=== PATIENT | female | born 1980 | race Caucasian/White ===

== ENCOUNTER → 2016-10-20 | Outpatient (CLI) | payer OTHER ==
[~2016-10-20] MED LIST: /ACETCOD2T PO; BACL-67 PO; BACL10TA2 PO; CLIN300C PO; CLON-412 PO; DILA4TAB PO; FENT12PA TOP; GABA-279 PO; GABA-282 PO; GABA300C2 PO; GRAL600T PO; IBUP80TA PO; METH750T PO; MORP-38 PO; MORP15TA2 PO; NORT25CA2 PO; PAME25CA PO; PERC10TA17 PO; PERC7.5T PO; SOMA350T PO; TIZA4CAP PO; TRAM50TA2 PO; VOLT1GEL2 TOP; ZOFR20TA PO
--- NOTE | 2016-11-10 00:48 | ECWPNPC ---
PATIENT NAME: ADELFO MACIAS : 1980 GENDER: FEMALE VISIT DATE: 10/20/2016 DISCHARGE DATE: 10/20/16 1435 VISIT LOCKED DATE TIME: PHYSICIAN: ANGEL LUIS SMITH RESOURCE: ANGEL LUIS SMITH REASON FOR APPOINTMENT 1. BACK HISTORY OF PRESENT ILLNESS NEW PATIENT CONSULT: 36 Y/O FEMALE REFERRED BY DORA PARTIDA,[facility] FOR EVALUATION OF CHRONIC LOW BACK PAIN AND LEG PAIN.THIS BEGAN WITHOUT PRECIPITATING EVENT IN 2011.STATES PAIN IS AGGREVATED BY EVERYTHING AND RELIEVED SOMEWHAT AT REST.DESCRIBES PAIN CONSTANT ,SHARP AND STABBING.RATING PAIN VAS 9/10.SHE WAS A PATIENT HERE WITH LAST VISIT ON 11-26-14.SHE DIDNT RETURN FOR FOLLOW UP PLANNED.REPORTS THAT SHE HAD A REACTION TO INJECTABLE STEROIDS IN PAST THAT WAS SEVERE.STATES NO RECENT PHYSICAL THERAPY.DENIES RECENT FEVER,ILLNESS OR WEIGHT LOSS.DENIES BOWEL OR BLADDER INCONTINENCE. WHEN DID YOUR PAIN FIRST START? . BRIEFLY DESCRIBE HOW YOUR PAIN STARTED? . HOW DOES YOUR PAIN CHANGE WITH TIME? . DOES YOUR PAIN AWAKEN YOU FROM SLEEP? . HOW MANY HOURS OF SLEEP DO YOU NORMALLY GET? . ANY DIAGNOSTIC TESTING? . FACILITY WHERE TESTS WERE DONE? ____. PAIN TREATMENT TREATMENT YES CANCER HAVE YOU EVER HAD ANY TYPE OF CANCER?NO NO. PAIN SCREENING: PATIENT HAS A COMPLAINT OF ACUTE OR CHRONIC PAIN :YES FALL RISK SCREENING: SCREENING :NO FALLS IN THE PAST YEAR RICHARDSON INVENTORY: QUESTIONNAIRE ASSESSEDYES SCORE VALUE CALCULATED YES SCORE:6 CURRENT MEDICATIONS TAKING GABAPENTIN 600 MG TABLET 1 TABLET ORALLY THREE TIMES A DAY TAKING NORTRIPTYLINE HCL 25 MG CAPSULE 1 CAPSULE ORALLY ONCE A DAY TAKING TRAMADOL HCL 50 MG TABLET 1 TAB ORALLY EVERY 6 HOURS NEEDED/MMD#4 TAKING BACLOFEN 20 MG TABLET 1 TABLET WITH FOOD OR MILK ORALLY EVERY 8 HRS TAKING ZOFRAN 4 MG TABLET 2 TABLETS ORALLY ONCE A DAY MEDICATION LIST REVIEWED AND RECONCILED WITH THE PATIENT PAST MEDICAL HISTORY ANEMIA ANXIETY D/O 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 NERVE CONDUCTION DONE AT [facility] LOST FEELING IN RIGHT HAND ALLERGIES ENVIRONMENTAL: ALLERGY NSAIDS: INTERNAL BLEED: ALLERGY STEROID INJECTIONS: SEVERE PAIN: ALLERGY ASPIRIN: VOMIT: ALLERGY SURGICAL HISTORY LAPAROSCOPY COLONOSCOPY-WNL 2013 CHOLECYSTECTOMY 2012 TUBALIGATION APPENDECTOMY RIGHT SHOULDER REPAIR FAMILY HISTORY FATHER: ALIVE MOTHER: ALIVE 56 YRS, DIAGNOSED WITH DIABETES SOCIAL HISTORY GENERAL: TOBACCO USE ARE YOU A:CURRENT SMOKER PATIENT COUNSELED ON THE DANGERS OF TOBACCO USE AND URGED TO QUIT:10/20/2016 ARE YOU INTERESTED IN QUITTING?THINKING ABOUT QUITTING COUNSELED THE PATIENT ON SMOKING CESSATION, EDUCATION [id number]/02/2017 [facility] [id number] OTHER LANGUAGE LANGUAGES SPOKEN:MACEDONIAN EDUCATION LEVEL OF EDUCATION:HIGH SCHOOL LEARNING BARRIERS / SPECIAL NEEDS BARRIERS TO LEARNING?NO HEARING IMPAIRED?NO VISION IMPAIRED?NO COGNITIVELY IMPAIRED?NO READINESS TO LEARN?YES LEARNING PREFERENCES?YES :[facility] PFS, CLERGY, PUBLIC HEALTH REFERRALS CLERGY REFERRAL NEEDED?NO WAS THE PROVIDER NOTIFIED OF ANY PERTINENT INFO?NO PFS REFERRAL NEEDED?NO PUBLIC HEALTH REFERRAL NEEDED?NO PATIENT: ____. [facility]VANCE DIRECTIVES HEALTH CARE PROXY?YES NAME OF HCPFILL OUT FREE FORM NOTES SECTION ALEXA GILBERTO CONTACT # FOR HCP [phone] DO YOU HAVE A DNR?NO WOULD YOU LIKE MORE INFORMATION?NO LIVING WILL?NO WOULD YOU LIKE MORE INFORMATION?NO POWER OF PRODUCTION MATERIAL COORDINATOR?NO HOSPITALIZATION/MAJOR DIAGNOSTIC PROCEDURE SURGERIES REVIEW OF SYSTEMS REVIEWED BY: PROVIDER: ANGEL LUIS MORALES . CONSTITUTIONAL: ANY CHANGE IN YOUR MEDICAL CONDITION? YES, PT HERE FOR BACK AND LEG PAIN SINCE 2012 . CHILLS NO . FEVER NO . INFECTION: DO YOU HAVE NEW INFECTIONS? NO . DO YOU HAVE HISTORY OF MRSA? NO . MUSCULOSKELETAL: ANY NEW PATTERNS OF PAIN OR NUMBNESS? YES LEFT HIP PAIN . SYTEMIC LUPUS NO . GASTROENTEROLOGY: ANY NEW CHANGE IN BOWEL CONTROL? NO . BARRETTS ESOPHAGUS NO . CIRRHOSIS NO . HEPATITIS NO . LIVER FAILURE NO . ACID REFLUX NO . UNEXPLAINED WEIGHT LOSS NO . GENITOURINARY: ANY NEW CHANGE IN BLADDER CONTROL? NO . IS THERE A CHANCE YOU COULD BE ? NO . HEMATOLOGY/LYMPH: DO YOU TAKE ANY BLOOD THINNERS? (FOR EXAMPLE- COUMADIN, PLAVIX, AGGRENOX, PLATEL, PRADAXA, OR XARELTO) NO . WHEN WAS YOUR LAST DOSE? DATE: TIME: . LOW PLATELET COUNT NO . SICKLE CELL DISEASE NO . VON WILLIEBRANDS NO . FACTOR V LEIDEN NO . THALLASEMIA NO . ANEMIA NO . EASY BRUISING NO . NEUROLOGY: HAVE YOU FALLEN IN THE PAST 6 MONTHS? NO . ANY NEW EXTREMITY NUMBNESS OR WEAKNESS? NO . HEAD INJURY NO . DEMENTIA NO . CEREBRAL PALSY NO . MULTIPLE SCLEROSIS NO . DIZZINESS NO . HEADACHE NO . STROKES NO . VERTIGO NO . CARDIOLOGY: DO YOU HAVE A PACEMAKER OR DEFIBRILLATOR? NO . ANGINA NO . HEART ATTACK NO . HEART SURGERY NO . CONGESTIVE HEART FAILURE/FLUID OVERLOAD NO . CHEST PAIN NO . HIGH BLOOD PRESSURE NO . IRREGULAR HEART BEAT NO . RESPIRATORY: HAVE YOU BEEN SICK IN THE PAST WEEK? NO . FEVER NO . FLU LIKE SYMPTOMS? NO . CPAP NO . BYPAP NO . ASTHMA NO . EMPHYSEMA NO . CHRONIC LUNG DISEASES NO . SHORTNESS OF BREATH ON EXERTION NO . DO YOU USE ANY TYPE OF TOBACCO (SMOKE, SMOKELESS, CHEW)? NO . COUGH NO . SNORING NO . INTEGUMENTARY: DO YOU HAVE ANY RASHES OR OPEN SORES? NO . ALLERGIC/IMMUNO: ARE YOU ALLERGIC TO SHELLFISH OR IV DYE? NO . ANY NEW ALLERGIES? NO . PSYCHIATRIC: DO YOU HAVE THOUGHTS OF HURTING YOURSELF OR SOMEONE ELSE? NO . ARE YOU ABUSED, NEGLECTED, OR IN AN UNSAFE ENVIRONMENT? NO . ENDOCRINOLOGY: ARE YOU DIABETIC? NO, PT SUSPECTS SHE MAY BE. STRONG FAMILY HX . THYROID DISORDER NO . OTHER: DO YOU NEED ANY PRESCRIPTIONS? YES . IF YES, PLEASE LIST: A DIFFERENT PAIN MEDICINE . ANY NEW PROBLEMS WITH YOUR MEDICATIONS? NO . WHEN DID YOU LAST EAT? ____ . WHEN DID YOU LAST DRINK? ____ . WHAT DID YOU LAST DRINK? ____ . NAME OF PERSON DRIVING YOU HOME? ____ . DO YOU HAVE ANY OTHER QUESTIONS OR CONCERNS NO . VITAL SIGNS WT 226.2 LBS, HT 66", BMI 36.51 INDEX, BP 130/86 MM HG, HR 95 /MIN, RR 16 /MIN, TEMP 97.5 F, OXYGEN SAT % 96%, SAFE IN ENV? (Y/N) Y, NA INITIALS TL 1327, REVIEWED BY: EM. EXAMINATION GENERAL EXAMINATION: GENERAL APPEARANCE:NO ACUTE DISTRESS. PSYCHALERT , ORIENTED X 3 . NECK:TRACHEA MIDLINE. NO CERVICAL OR SUPRACLAVICULAR LYMPHADENOPATHY NOTED. LUNGS:LUNG VARGAS ARE CLEAR TO AUSCULTATION BILATERALLY. GOOD MOVEMENT OF AIR. HEART:S1, S2 IN A REGULAR RATE AND RHYTHM. NO SIGNIFICANT MURMURS, RUBS OR GALLOPS NOTED. ABDOMEN:SOFT, NON-TENDER, NO ORGANOMEGALY, BOWEL SOUNDS ARE NORMAL. LUMBAR SPINE/LOWER BACK: INSPECTION:NORMAL CURVATURE OF SPINE. PALPATION:VERTEBRAL SPINE TENDERNESS, PARASPINAL TENDERNESS. MOTOR SYSTEM:5/5 BLE. SENSORY EXAM:NORMAL BILATERAL LE. REFLEXES:2/4 AND SYMMETRIC BLE. ASSESSMENTS MYALGIA - M79.1 (PRIMARY) TREATMENT MYALGIA START CYMBALTA CAPSULE DELAYED RELEASE PARTICLES, 30 MG, 1 CAPSULE, ORALLY, ONCE A DAY, 30 DAY(S), 30 CAPSULE, REFILLS 2 PROCEDURE CODES FA211 ESTABILISHED PATIENT [facility] CHARGE DISPOSITION & COMMUNICATION FOLLOW UP 6 WEEKS ELECTRONICALLY SIGNED BY ANDREW TOLBERT ON 11/09/2016 AT 11:52 AM EDT DISCLAIMER : THIS IS A VISIT SUMMARY EXTRACTED FROM THE [employer] CHART. IT IS NOT A COPY OF THE [employer] PROGRESS NOTE. LASHAY
== END ==
LOC: M PAIN 13:20
PROVIDERS: ATTEND Nurse Practitioner Family
DX: G89.29 Other chronic pain (principal); M79.1 Myalgia; M54.5 Low back pain; M79.606 Pain in leg, unspecified; F17.210 Nicotine dependence, cigarettes, uncomplicated; F41.9 Anxiety disorder, unspecified; M06.9 Rheumatoid arthritis, unspecified; J30.89 Other allergic rhinitis; Z88.6 Allergy status to analgesic agent; Z88.8 Allergy status to other drugs, medicaments and biological substances; Z79.891 Long term (current) use of opiate analgesic; Z79.899 Other long term (current) drug therapy

== ENCOUNTER → 2016-11-21 | Outpatient (CLI) | payer OTHER ==
[~2016-11-21] MED LIST changes: -BACL-67 PO; +BACL1TAB9 PO; -DILA4TAB PO; +DILA4TAB13 PO; -PERC10TA17 PO; +PERC10TA26 PO
[2016-11-21 13:07] LABS: ALBUMIN 3.6 GM/DL (3.2-5.2); ALBUMIN/GLOBULIN RATIO 1.13 (1.00-1.93); ALKALINE PHOSPHATASE 96 U/L (45-117); ALT/SGPT 59 U/L (12-78); ANION GAP 7 MEQ/L (8-16); AST/SGOT 61 U/L (15-37); BILIRUBIN,TOTAL 0.4 MG/DL (0.2-1.0); BLOOD UREA NITROGEN 4 MG/DL (7-18); CALCIUM LEVEL 9.3 MG/DL (8.5-10.1); CARBON DIOXIDE LEVEL 32 MEQ/L (21-32); CHLORIDE LEVEL 102 MEQ/L (98-107); CHOLESTEROL LEVEL 182 MG/DL (<200); CREATININE FOR GFR 0.67 MG/DL (0.55-1.02); GLOMERULAR FILTRATION RATE > 60.0 (>60); GLUCOSE, FASTING 94 MG/DL (70-105); POTASSIUM SERUM 3.6 MEQ/L (3.5-5.1); SODIUM LEVEL 141 MEQ/L (136-145); TOTAL PROTEIN 6.8 GM/DL (6.4-8.2); TRIGLYCERIDES LEVEL 237 MG/DL (<150)
== END ==
LOC: M WUC 08:19
PROVIDERS: ATTEND Family Medicine Addiction Medicine
DX: E66.9 Obesity, unspecified (principal)

== ENCOUNTER → 2016-11-22 | Outpatient (CLI) | payer OTHER ==
--- NOTE | 2016-11-22 13:55 | REP ---
MR LUMBAR SPINE WITHOUT CONTRAST: HISTORY: Spondylosis. COMPARISON: 12/25/2014. Decreased signal intensity on T2-weighted images is present in the L4-5 and L5-S1 intervertebral discs. The discs are decreased in height. These findings are consistent with disc degeneration. There is no disc bulge or herniation at the L1-2 through L3-4 levels. The nerves exit the neural foramina without compression. A subchondral cyst is present in the right L1 inferior facet. A diffuse disc bulge and small right paracentral disc protrusion are present at the L4-5 level. There is minimal compression of the thecal sac. There is hypertrophy of the ligamenta flava and posterior articulating facets. The L4 nerves exit the neural foramina without compression. A diffuse disc bulge is present at the L5-S1 level. There is minimal compression of the thecal sac. There is hypertrophy of the posterior articulating facts. The L5 nerves exit the neural foramina without compression. The conus medullaris is normal in appearance terminating at the level of the L1-2 intervertebral disc. Increased signal intensity on T2-weighted images is present in the endplates of the L4 and 5 vertebral bodies. This represents degenerative change. IMPRESSION: 1. Diffuse disc bulge and small right paracentral disc protrusion at the L4-5 level with minimal thecal sac compression. 2. Diffuse disc bulge at the L5-S1 level with minimal thecal sac compression. There is no significant change compared to the previous study. Signed by Tate Steve MD 11/22/2016 02:10 P
== END ==
LOC: M RAD 10:24
PROVIDERS: ATTEND Physician Assistant
DX: M47.896 Other spondylosis, lumbar region (principal); M54.5 Low back pain; M51.26 Other intervertebral disc displacement, lumbar region

== ENCOUNTER → 2016-12-18 | Outpatient (CLI) | payer OTHER ==
--- NOTE | 2017-01-05 00:15 | ECWPNPC ---
PATIENT NAME: ADELFO MACIAS : 1980 GENDER: FEMALE VISIT DATE: 12/18/2016 DISCHARGE DATE: 12/18/16 1256 VISIT LOCKED DATE TIME: PHYSICIAN: ANGEL LUIS SMITH RESOURCE: ANGEL LUIS SMITH REASON FOR APPOINTMENT 1. BACK HISTORY OF PRESENT ILLNESS HISTORY OF PRESENT ILLNESS: PAIN THE PATIENT DESCRIBES THE PAIN... FALL RISK SCREENING: SCREENING :NO FALLS IN THE PAST YEAR NEW PATIENT CONSULT: 36 Y/O FEMALE REFERRED BY DORA PARTIDA,[facility] FOR EVALUATION OF CHRONIC LOW BACK PAIN AND LEG PAIN.THIS BEGAN WITHOUT PRECIPITATING EVENT IN 2011.STATES PAIN IS AGGREVATED BY EVERYTHING AND RELIEVED SOMEWHAT AT REST.DESCRIBES PAIN CONSTANT ,SHARP AND STABBING.RATING PAIN VAS 10/10.REPORTS INABILITY TO TOLERATE ADL'S DUE TO PAIN.STARTED ON CYMBALTA AT LAST VISIT AND DOES NOT SHOW MUCH IMPROVEMENT.DISCUSSED MEDICATION AND TREATMENT OPTIONS. WHEN DID YOUR PAIN FIRST START? . BRIEFLY DESCRIBE HOW YOUR PAIN STARTED? . HOW DOES YOUR PAIN CHANGE WITH TIME? . DOES YOUR PAIN AWAKEN YOU FROM SLEEP? . HOW MANY HOURS OF SLEEP DO YOU NORMALLY GET? . ANY DIAGNOSTIC TESTING? . FACILITY WHERE TESTS WERE DONE? ____. PAIN TREATMENT TREATMENT YES CANCER HAVE YOU EVER HAD ANY TYPE OF CANCER?NO NO. 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 CONSTITUTIONAL: ANY CHANGE IN YOUR MEDICAL CONDITION? NO . CHILLS NO . FEVER NO . INFECTION: DO YOU HAVE NEW INFECTIONS? NO . DO YOU HAVE HISTORY OF MRSA? NO . MUSCULOSKELETAL: ANY NEW PATTERNS OF PAIN OR NUMBNESS? NO, PT STATES CYMBALTA HAS HELPED A LITTLE, PAIN GETS WORSE WITH MORE ACTIVITY . GASTROENTEROLOGY: ANY NEW CHANGE IN BOWEL CONTROL? NO . GENITOURINARY: ANY NEW CHANGE IN BLADDER CONTROL? NO . IS THERE A CHANCE YOU COULD BE ? NO . HEMATOLOGY/LYMPH: DO YOU TAKE ANY BLOOD THINNERS? (FOR EXAMPLE- COUMADIN, PLAVIX, AGGRENOX, PLATEL, PRADAXA, OR XARELTO) NO . WHEN WAS YOUR LAST DOSE? DATE: TIME: . NEUROLOGY: HAVE YOU FALLEN IN THE PAST 6 MONTHS? NO . ANY NEW EXTREMITY NUMBNESS OR WEAKNESS? NO . CARDIOLOGY: DO YOU HAVE A PACEMAKER OR DEFIBRILLATOR? NO . RESPIRATORY: HAVE YOU BEEN SICK IN THE PAST WEEK? NO . FEVER NO . FLU LIKE SYMPTOMS? NO . COUGH NO . INTEGUMENTARY: DO YOU HAVE ANY RASHES OR OPEN SORES? NO . ALLERGIC/IMMUNO: ARE YOU ALLERGIC TO SHELLFISH OR IV DYE? NO . ANY NEW ALLERGIES? NO . PSYCHIATRIC: DO YOU HAVE THOUGHTS OF HURTING YOURSELF OR SOMEONE ELSE? NO . ARE YOU ABUSED, NEGLECTED, OR IN AN UNSAFE ENVIRONMENT? NO . ENDOCRINOLOGY: ARE YOU DIABETIC? NO . OTHER: DO YOU NEED ANY PRESCRIPTIONS? NO . IF YES, PLEASE LIST: ____ . ANY NEW PROBLEMS WITH YOUR MEDICATIONS? NO . WHEN DID YOU LAST EAT? ____ . WHEN DID YOU LAST DRINK? ____ . WHAT DID YOU LAST DRINK? ____ . NAME OF PERSON DRIVING YOU HOME? ____ . DO YOU HAVE ANY OTHER QUESTIONS OR CONCERNS NO . VITAL SIGNS WT 230 LBS, HT 66", BMI 37.12 INDEX, BP 140/90 MM HG, HR 95 /MIN, RR 16 /MIN, OXYGEN SAT % 97%, SAFE IN ENV? (Y/N) Y, NA INITIALS SC 12:02, REVIEWED BY: EM. EXAMINATION GENERAL EXAMINATION: GENERAL APPEARANCE:NO ACUTE DISTRESS. PSYCHALERT , ORIENTED X 3 . NECK:TRACHEA MIDLINE. NO CERVICAL OR SUPRACLAVICULAR LYMPHADENOPATHY NOTED. LUNGS:LUNG VARGAS ARE CLEAR TO AUSCULTATION BILATERALLY. GOOD MOVEMENT OF AIR. HEART:S1, S2 IN A REGULAR RATE AND RHYTHM. NO SIGNIFICANT MURMURS, RUBS OR GALLOPS NOTED. ABDOMEN:SOFT, NON-TENDER, NO ORGANOMEGALY, BOWEL SOUNDS ARE NORMAL. LUMBAR SPINE/LOWER BACK: INSPECTION:NORMAL CURVATURE OF SPINE. PALPATION:VERTEBRAL SPINE TENDERNESS, PARASPINAL TENDERNESS. MOTOR SYSTEM:5/5 BLE. SENSORY EXAM:NORMAL BILATERAL LE. REFLEXES:2/4 AND SYMMETRIC BLE. ASSESSMENTS MYALGIA - M79.1 (PRIMARY) NEUROPATHY - G62.9 TREATMENT MYALGIA REFILL CYMBALTA CAPSULE DELAYED RELEASE PARTICLES, 30 MG, 1 CAPSULE, ORALLY, ONCE A DAY, 30 DAY(S), 30 CAPSULE, REFILLS 2 PROCEDURE CODES FA211 ESTABILISHED PATIENT [facility] FACILITY CHARGE DISPOSITION & COMMUNICATION FOLLOW UP 2 MONTHS ELECTRONICALLY SIGNED BY ANDREW TOLBERT ON 01/04/2017 AT 01:58 PM EDT DISCLAIMER : THIS IS A VISIT SUMMARY EXTRACTED FROM THE [employer] CHART. IT IS NOT A COPY OF THE [employer] PROGRESS NOTE. MTDD
== END ==
LOC: M PAIN 12:00
PROVIDERS: ATTEND Nurse Practitioner Family
DX: M79.1 Myalgia (principal); G62.9 Polyneuropathy, unspecified; G89.29 Other chronic pain; D64.9 Anemia, unspecified; F41.9 Anxiety disorder, unspecified; M06.9 Rheumatoid arthritis, unspecified; Z79.891 Long term (current) use of opiate analgesic; Z79.899 Other long term (current) drug therapy; J30.9 Allergic rhinitis, unspecified; Z88.6 Allergy status to analgesic agent; Z88.7 Allergy status to serum and vaccine

== ENCOUNTER → 2017-02-13 | Outpatient (CLI) | payer OTHER ==
--- NOTE | 2017-03-09 01:07 | ECWPNPC ---
PATIENT NAME: ADELFO MACIAS : 1980 GENDER: FEMALE VISIT DATE: 02/13/2017 DISCHARGE DATE: 02/13/17 09 VISIT LOCKED DATE TIME: PHYSICIAN: ANGEL LUIS SMITH RESOURCE: ANGEL LUIS SMITH REASON FOR APPOINTMENT 1. BACK HISTORY OF PRESENT ILLNESS HISTORY OF PRESENT ILLNESS: HERE FOR F/U AND MANAGEMENT OF CHRONIC LOW BACK PAIN AND BILATERAL LEG PAIN.REPORTING DIZZY EPISODES OVER THE PAST MONTH.BEING EVALUATED AT [facility],DR. VARGAS.QUETIONING IF CYMBALTA 30MG WE STARTED 3 MOS. AGO COULD BE CAUSING.DR. GARZA DOESNT THINK SO.RECENT MRI IMAGING HAS BEEN DONE.IN PROCESS OF BEING EVALUATED BY DR. MILLARD PAIN VAS 9/10. PAIN THE PATIENT DESCRIBES THE PAIN... 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 CONSTITUTIONAL: ANY CHANGE IN YOUR MEDICAL CONDITION? NO . CHILLS NO . FEVER NO . INFECTION: DO YOU HAVE NEW INFECTIONS? NO . DO YOU HAVE HISTORY OF MRSA? NO . MUSCULOSKELETAL: ANY NEW PATTERNS OF PAIN OR NUMBNESS? YES, IN HIP NOW . GASTROENTEROLOGY: ANY NEW CHANGE IN BOWEL CONTROL? NO . GENITOURINARY: ANY NEW CHANGE IN BLADDER CONTROL? NO . IS THERE A CHANCE YOU COULD BE ? NO . HEMATOLOGY/LYMPH: DO YOU TAKE ANY BLOOD THINNERS? (FOR EXAMPLE- COUMADIN, PLAVIX, AGGRENOX, PLATEL, PRADAXA, OR XARELTO) NO . WHEN WAS YOUR LAST DOSE? DATE: TIME: . NEUROLOGY: HAVE YOU FALLEN IN THE PAST 6 MONTHS? NO . ANY NEW EXTREMITY NUMBNESS OR WEAKNESS? NO . CARDIOLOGY: DO YOU HAVE A PACEMAKER OR DEFIBRILLATOR? NO . RESPIRATORY: HAVE YOU BEEN SICK IN THE PAST WEEK? NO . FEVER NO . FLU LIKE SYMPTOMS? NO . COUGH NO . INTEGUMENTARY: DO YOU HAVE ANY RASHES OR OPEN SORES? NO . ALLERGIC/IMMUNO: ARE YOU ALLERGIC TO SHELLFISH OR IV DYE? NO . ANY NEW ALLERGIES? NO . PSYCHIATRIC: DO YOU HAVE THOUGHTS OF HURTING YOURSELF OR SOMEONE ELSE? NO . ARE YOU ABUSED, NEGLECTED, OR IN AN UNSAFE ENVIRONMENT? NO . ENDOCRINOLOGY: ARE YOU DIABETIC? NO . OTHER: DO YOU NEED ANY PRESCRIPTIONS? NO . IF YES, PLEASE LIST: ____ . ANY NEW PROBLEMS WITH YOUR MEDICATIONS? LIGHTHEADED AND DIZZY EVERY DAY AROUND NOON ( TAKES ALL ALEJANDRO AT 0700), ANOTHER MD SAID IT COULD BE CYMBALTA - HAS BEEN ON THIS SINCE OCTOBER . WHEN DID YOU LAST EAT? ____ . WHEN DID YOU LAST DRINK? ____ . WHAT DID YOU LAST DRINK? ____ . NAME OF PERSON DRIVING YOU HOME? ____ . DO YOU HAVE ANY OTHER QUESTIONS OR CONCERNS NO . VITAL SIGNS WT 2219.2 LBS, HT 66", BMI 358.15 INDEX, BP 138/87 MM HG, HR 95 /MIN, RR 16 /MIN, TEMP 96.1 F, OXYGEN SAT % 99%, NA INITIALS AW 0907, REVIEWED BY: NL. EXAMINATION GENERAL EXAMINATION: GENERAL APPEARANCE:NO ACUTE DISTRESS. PSYCHALERT , ORIENTED X 3 . NECK:TRACHEA MIDLINE. NO CERVICAL OR SUPRACLAVICULAR LYMPHADENOPATHY NOTED. LUNGS:LUNG VARGAS ARE CLEAR TO AUSCULTATION BILATERALLY. GOOD MOVEMENT OF AIR. HEART:S1, S2 IN A REGULAR RATE AND RHYTHM. NO SIGNIFICANT MURMURS, RUBS OR GALLOPS NOTED. ABDOMEN:SOFT, NON-TENDER, NO ORGANOMEGALY, BOWEL SOUNDS ARE NORMAL. LUMBAR SPINE/LOWER BACK: INSPECTION:NORMAL CURVATURE OF SPINE. PALPATION:VERTEBRAL SPINE TENDERNESS, PARASPINAL TENDERNESS. MOTOR SYSTEM:5/5 BLE. SENSORY EXAM:NORMAL BILATERAL LE. REFLEXES:2/4 AND SYMMETRIC BLE. ASSESSMENTS MYALGIA - M79.1 (PRIMARY) NEUROPATHY - G62.9 TREATMENT MYALGIA CONTINUE CYMBALTA CAPSULE DELAYED RELEASE PARTICLES, 30 MG, 1 CAPSULE, ORALLY, ONCE A DAY PROCEDURE CODES FA211 ESTABILISHED PATIENT [facility] CHARGE DISPOSITION & COMMUNICATION FOLLOW UP 2 MONTHS ELECTRONICALLY SIGNED BY ANDREW TOLBERT ON 03/08/2017 AT 09:52 PM EDT DISCLAIMER : THIS IS A VISIT SUMMARY EXTRACTED FROM THE [employer] CHART. IT IS NOT A COPY OF THE [employer] PROGRESS NOTE. MTDD
== END ==
LOC: M PAIN 09:00
PROVIDERS: ATTEND Nurse Practitioner Family
DX: G89.29 Other chronic pain (principal); G62.9 Polyneuropathy, unspecified; M79.1 Myalgia; F41.9 Anxiety disorder, unspecified; M06.051 Rheumatoid arthritis without rheumatoid factor, right hip; J30.89 Other allergic rhinitis; Z88.6 Allergy status to analgesic agent; Z88.8 Allergy status to other drugs, medicaments and biological substances; Z79.891 Long term (current) use of opiate analgesic; Z79.899 Other long term (current) drug therapy

== ENCOUNTER → 2017-03-28 | Outpatient (CLI) | payer OTHER | LOC: M WUC 08:10 | PROVIDERS: ATTEND Neurological Surgery | DX: E66.9 Obesity, unspecified (principal) ==

== ENCOUNTER → 2017-04-16 | Outpatient (CLI) | payer OTHER ==
--- NOTE | 2017-04-20 01:21 | ECWPNPC ---
PATIENT NAME: ADELFO MACIAS : 1980 GENDER: FEMALE VISIT DATE: 04/16/2017 DISCHARGE DATE: 04/16/17 1016 VISIT LOCKED DATE TIME: PHYSICIAN: ANGEL LUIS SMITH RESOURCE: ANGEL LUIS SMITH REASON FOR APPOINTMENT 1. BACK HISTORY OF PRESENT ILLNESS HISTORY OF PRESENT ILLNESS: HERE FOR F/U AND MANAGEMENT OF CHRONIC LOW BACK PAIN AND BILATERAL LEG PAIN.REPORTING DIZZY EPISODES OVER THE PAST MONTH.RECENT MRI IMAGING HAS BEEN DONE. EVALUATED BY DR. KENNEDY . 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 PAIN THE PATIENT DESCRIBES THE PAIN... THE PATIENT DESCRIBES THE PAIN... 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 COUNSELED THE PATIENT ON SMOKING CESSATION, EDUCATION HISUUPYS37/27/2017 HOW MANY CIGARETTES A DAY DO YOU SMOKE?31 OR MORE HOW SOON AFTER YOU WAKE UP DO YOU SMOKE YOUR FIRST CIGARETTE?WITHIN 5 MIN HOW OFTEN DO YOU SMOKE CIGARETTES?EVERY DAY PATIENT COUNSELED ON THE DANGERS OF TOBACCO USE AND URGED TO QUIT:04/16/2017 [employer] [id number] OTHER LANGUAGE LANGUAGES SPOKEN:[place] EDUCATION LEVEL OF EDUCATION:HIGH SCHOOL LEARNING BARRIERS / SPECIAL NEEDS BARRIERS TO LEARNING?NO HEARING IMPAIRED?NO VISION IMPAIRED?NO COGNITIVELY IMPAIRED?NO READINESS TO LEARN?YES LEARNING PREFERENCES?YES :HANDOUTS PAIN CLINIC PFS, CLERGY, PUBLIC HEALTH REFERRALS PFS REFERRAL NEEDED?NO CLERGY REFERRAL NEEDED?NO PUBLIC HEALTH REFERRAL NEEDED?NO WAS THE PROVIDER NOTIFIED OF ANY PERTINENT INFO?NO HAS THE PATIENT BEEN EDUCATED REGARDING HIS/HER PLAN OF CARE?YES HAS THE PATIENT BEEN EDUCATED REGARDING PAIN, THE RISK FOR PAIN, THE IMPORTANCE OF EFFECTIVE PAIN MANAGEMENT, AND THE PAIN ASSESSMENT PROCESS?YES PATIENT: ____. 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 CONSTITUTIONAL: ANY CHANGE IN YOUR MEDICAL CONDITION? NO . CHILLS NO . FEVER NO . INFECTION: DO YOU HAVE NEW INFECTIONS? NO . DO YOU HAVE HISTORY OF MRSA? NO . MUSCULOSKELETAL: ANY NEW PATTERNS OF PAIN OR NUMBNESS? YES, STATES SHE RETORE HER RIGHT HIP--HAS APPOINT WITH [facility] IN [address] [facility] 02/2017 . GASTROENTEROLOGY: ANY NEW CHANGE IN BOWEL CONTROL? NO . GENITOURINARY: ANY NEW CHANGE IN BLADDER CONTROL? NO . IS THERE A CHANCE YOU COULD BE ? NO . HEMATOLOGY/LYMPH: DO YOU TAKE ANY BLOOD THINNERS? (FOR EXAMPLE- COUMADIN, PLAVIX, AGGRENOX, PLATEL, PRADAXA, OR XARELTO) NO . WHEN WAS YOUR LAST DOSE? DATE: TIME: . NEUROLOGY: HAVE YOU FALLEN IN THE PAST 6 MONTHS? NO . ANY NEW EXTREMITY NUMBNESS OR WEAKNESS? NO . CARDIOLOGY: DO YOU HAVE A PACEMAKER OR DEFIBRILLATOR? NO . RESPIRATORY: HAVE YOU BEEN SICK IN THE PAST WEEK? NO . FEVER NO . FLU LIKE SYMPTOMS? NO . COUGH NO . INTEGUMENTARY: DO YOU HAVE ANY RASHES OR OPEN SORES? NO . ALLERGIC/IMMUNO: ARE YOU ALLERGIC TO SHELLFISH OR IV DYE? NO . ANY NEW ALLERGIES? NO . PSYCHIATRIC: DO YOU HAVE THOUGHTS OF HURTING YOURSELF OR SOMEONE ELSE? NO . ARE YOU ABUSED, NEGLECTED, OR IN AN UNSAFE ENVIRONMENT? NO . ENDOCRINOLOGY: ARE YOU DIABETIC? NO . OTHER: DO YOU NEED ANY PRESCRIPTIONS? YES . IF YES, PLEASE LIST: CYMBALTA . ANY NEW PROBLEMS WITH YOUR MEDICATIONS? NO . WHEN DID YOU LAST EAT? ____ . WHEN DID YOU LAST DRINK? ____ . WHAT DID YOU LAST DRINK? ____ . NAME OF PERSON DRIVING YOU HOME? ____ . DO YOU HAVE ANY OTHER QUESTIONS OR CONCERNS NO . VITAL SIGNS WT 220.8 LBS, HT 66", BMI 35.63 INDEX, BP 123/80 MM HG, HR 100 /MIN, RR 16 /MIN, TEMP 97.2 F, OXYGEN SAT % 96%, SAFE IN ENV? (Y/N) Y, NA INITIALS TL 0931, REVIEWED BY: AKASH. EXAMINATION LUMBAR SPINE/LOWER BACK: INSPECTION:NORMAL CURVATURE OF SPINE. PALPATION:VERTEBRAL SPINE TENDERNESS, PARASPINAL TENDERNESS. MOTOR SYSTEM:5/5 BLE. SENSORY EXAM:NORMAL BILATERAL LE. REFLEXES:2/4 AND SYMMETRIC BLE. GENERAL EXAMINATION: LUNGS:LUNG VARGAS ARE CLEAR TO AUSCULTATION BILATERALLY. GOOD MOVEMENT OF AIR. HEART:S1, S2 IN A REGULAR RATE AND RHYTHM. NO SIGNIFICANT MURMURS, RUBS OR GALLOPS NOTED. ASSESSMENTS MYALGIA - M79.1 (PRIMARY) NEUROPATHY - G62.9 TREATMENT MYALGIA CONTINUE GABAPENTIN TABLET, 600 MG, 1 TABLET, ORALLY, THREE TIMES A DAY CONTINUE NORTRIPTYLINE HCL CAPSULE, 25 MG, 1 CAPSULE, ORALLY, ONCE A DAY CONTINUE TRAMADOL HCL TABLET, 50 MG, 1 TAB, ORALLY, EVERY 6 HOURS NEEDED/MMD#4 CONTINUE BACLOFEN TABLET, 20 MG, 1 TABLET WITH FOOD OR MILK, ORALLY, EVERY 8 HRS INCREASE CYMBALTA CAPSULE DELAYED RELEASE PARTICLES, 30 MG, 1 CAPSULE, ORALLY, BID, 30 DAY(S), 60 CAPSULE, REFILLS 2 REFERRAL TO:[facility] KENNY REASON:GENERALIZED ARTHROPATHY R/O RHEUMATOID DISEASE OTHERS REFERRAL TO:[facility]IGDAL[facility] KENNY REASON:GENERALIZED ARTHROPATHY R/O RHEUMATOID DISEASE PROCEDURE CODES FA211 ESTABILISHED PATIENT [facility] FACILITY CHARGE DISPOSITION & COMMUNICATION FOLLOW UP 2 MONTHS ELECTRONICALLY SIGNED BY ANDREW TOLBERT ON 04/16/2017 AT 10:19 AM EST DISCLAIMER : THIS IS A VISIT SUMMARY EXTRACTED FROM THE [employer] CHART. IT IS NOT A COPY OF THE [employer] PROGRESS NOTE. LASHAY
== END ==
LOC: M PAIN 09:15
PROVIDERS: ATTEND Nurse Practitioner Family
DX: G89.29 Other chronic pain (principal); M79.1 Myalgia; G62.9 Polyneuropathy, unspecified; D64.9 Anemia, unspecified; F41.9 Anxiety disorder, unspecified; J30.9 Allergic rhinitis, unspecified; F17.210 Nicotine dependence, cigarettes, uncomplicated; G57.93 Unspecified mononeuropathy of bilateral lower limbs; Z79.899 Other long term (current) drug therapy; Z88.6 Allergy status to analgesic agent; Z88.8 Allergy status to other drugs, medicaments and biological substances; Z79.891 Long term (current) use of opiate analgesic

== ENCOUNTER → 2017-04-19 | Outpatient (CLI) | payer OTHER ==
--- NOTE | 2017-04-19 09:28 | REP ---
Clinical: Spondylosis . Technique: AP, lateral, flexion/extension, bilateral oblique, and open-mouth views. Findings: Alignment and lordosis is maintained. There is no evidence for acute fracture / compression injury or subluxation. No significant degenerative changes are appreciated. A small solitary anterior osteophyte at the C4 level is identified. Oblique views demonstrate patent neural foramen. Open mouth view demonstrates normal C1-C2 articulation and odontoid process. Impression: With the exception of a small osteophyte at the C4 level, examination appears normal. Signed by David Beverly MD 04/19/2017 09:20 A
--- NOTE | 2017-04-19 10:00 | REP ---
Lumbar spine series: Seven views. History: Spondylosis. Comparison study: February 04, 2015. Findings: Lateral views done in flexion/extension and neutral position show no subluxation or instability. Vertebral body heights are preserved. Alignment is normal. There is degenerative disc narrowing at L4-5 and L5-S1 as on the prior study. Vacuum phenomenon are seen at these two disc levels. There is no evidence of spondylolysis or spondylolisthesis. There is mild osteoarthritic facet hypertrophy bilaterally at L4-5 and at L5-S1 unchanged. Sacrum and SI joints are intact. Psoas margins are symmetric. There are clips in the right upper quadrant. Granulomatous calcifications are visible in the left upper quadrant and these appear to be within the spleen unchanged. Impression: Degenerative disc disease and osteoarthritic facet changes at L4-5 and L5-S1 radiographically stable from February 04, 2015. No subluxation or instability. Signed by Nikita Garcia MD 04/19/2017 04:06 P
== END ==
LOC: M WUC 08:07
PROVIDERS: ATTEND Neurological Surgery
DX: M25.78 Osteophyte, vertebrae (principal); M47.892 Other spondylosis, cervical region; M47.817 Spondylosis without myelopathy or radiculopathy, lumbosacral region; M47.816 Spondylosis without myelopathy or radiculopathy, lumbar region

== ENCOUNTER → 2017-05-13 | Outpatient (CLI) | payer OTHER ==
--- NOTE | 2017-05-13 11:02 | REP ---
Clinical: Trauma. Sprain. Technique: AP, lateral, bilateral oblique views right wrist . Findings: The carpal bones, surrounding osseous structures, soft tissues, and joint spaces are normal. There is no evidence for acute fracture or dislocation. No subcutaneous emphysema or radiodense foreign body. Impression: Normal wrist series. No acute fracture or dislocation Signed by David Beverly MD 05/13/2017 10:54 A
== END ==
LOC: M WUC 10:41
PROVIDERS: ATTEND Physician Assistant
DX: S63.501A Unspecified sprain of right wrist, initial encounter (principal); X58.XXXA Exposure to other specified factors, initial encounter; Y92.9 Unspecified place or not applicable; Y93.9 Activity, unspecified; Y99.9 Unspecified external cause status

== ENCOUNTER → 2017-06-26 | Outpatient (CLI) | payer OTHER | LOC: M PAIN 10:45 | DX: G89.29 Other chronic pain (principal); M54.5 Low back pain; G62.9 Polyneuropathy, unspecified; M79.7 Fibromyalgia; F41.9 Anxiety disorder, unspecified; M06.9 Rheumatoid arthritis, unspecified; F17.210 Nicotine dependence, cigarettes, uncomplicated; J30.89 Other allergic rhinitis; Z79.899 Other long term (current) drug therapy; Z88.6 Allergy status to analgesic agent; Z88.8 Allergy status to other drugs, medicaments and biological substances | CPT/HCPCS: G0463 ==

== ENCOUNTER → 2017-07-15 | Outpatient (CLI) | payer OTHER ==
[2017-07-15 18:05] LABS: BASO % 0.3 % (0.0-1.0); EOS # 0.1 10^3/uL (0.0-0.50); EOS % 1.8 % (0.0-3.0); HEMATOCRIT 37.6 % (36.0-47.0); HEMOGLOBIN 12.5 g/dl (12.0-16.0); IMMATURE GRANULOCYTE % 0.4 % (0-3.0); LYMPH # 1.7 10^3/uL (1.5-4.5); LYMPH % 20.8 % (24.0-44.0); MEAN CORPUSCULAR HEMOGLOBIN 32.4 pg (27.0-33.0); MEAN CORPUSCULAR HGB CONC 33.2 g/dl (32.0-36.5); MEAN CORPUSCULAR VOLUME 97.4 fl (80.0-96.0); MONO # 0.3 10^3/uL (0.0-0.8); MONO % 4.3 % (0.0-5.0); NEUTROPHILS # 5.8 10^3/uL (1.8-7.7); NEUTROPHILS % 72.4 % (36.0-66.0); PLATELET COUNT, AUTOMATED 310 10^3/uL (150-450); RED BLOOD COUNT 3.86 10^6/uL (4.00-5.40); RED CELL DISTRIBUTION WIDTH 14.6 % (11.5-14.5); WHITE BLOOD COUNT 7.9 10^3/uL (4.0-10.0)
[2017-07-15 18:23] LABS: ALBUMIN 3.7 GM/DL (3.2-5.2); ALBUMIN/GLOBULIN RATIO 1.12 (1.00-1.93); ALKALINE PHOSPHATASE 103 U/L (45-117); ALT/SGPT 28 U/L (12-78); ANION GAP 7 MEQ/L (8-16); AST/SGOT 17 U/L (7-37); BILIRUBIN,TOTAL 0.4 MG/DL (0.2-1.0); BLOOD UREA NITROGEN 5 MG/DL (7-18); C REACTIVE PROTEIN QUANTITATIV 1.73 MG/DL (0.00-0.30); CALCIUM LEVEL 8.7 MG/DL (8.5-10.1); CARBON DIOXIDE LEVEL 28 MEQ/L (21-32); CHLORIDE LEVEL 107 MEQ/L (98-107); CREATININE FOR GFR 0.69 MG/DL (0.55-1.30); GLOMERULAR FILTRATION RATE > 60.0 (>60); GLUCOSE, FASTING 101 MG/DL (70-100); POTASSIUM SERUM 3.5 MEQ/L (3.5-5.1); RHEUMATOID FACTOR QUANT < 10.0 IU/ML (0-15.0); SODIUM LEVEL 142 MEQ/L (136-145); THYROID STIMULATING HORMONE 0.725 uIU/ML (0.358-3.740)
[2017-07-15 19:48] LABS: ERYTHROCYTE SEDIMENTATION RATE 26 mm/hr (0-20)
[2017-07-18 00:06] LABS: CYCLIC CITRULLINATED PEPTIDE 2 units (0-19)
[2017-07-18 00:06] LABS: ANA (HEP2) Negative (.); Lyme Disease IgG/IgM Antibodie <0.91 ISR (0.00-0.90); Lyme Disease IgM Ab Quantitati <0.80 index (0.00-0.79); SSA SJOGRENS A <0.2 AI (0.0-0.9); SSB SJOGRENS B <0.2 AI (0.0-0.9)
== END ==
LOC: M WUC 08:56
DX: Z51.81 Encounter for therapeutic drug level monitoring (principal); Z79.899 Other long term (current) drug therapy; M35.9 Systemic involvement of connective tissue, unspecified; M51.36 Other intervertebral disc degeneration, lumbar region; M50.322 Other cervical disc degeneration at C5-C6 level
CPT/HCPCS: 84443

== ENCOUNTER → 2017-07-15 | Outpatient (CLI) | payer OTHER ==
[2017-07-15 18:16] LABS: CHOLESTEROL LEVEL 179 MG/DL (<200); CHOLESTEROL RISK RATIO 8.523 (<5); HDL CHOLESTEROL 21 MG/DL (>40); LDL CHOLESTEROL 110.4 MG/DL (<100); NON-HDL-C 158 MG/DL; TRIGLYCERIDES LEVEL 238 MG/DL (<150)
== END ==
LOC: M WUC 09:10
DX: E66.9 Obesity, unspecified (principal)
CPT/HCPCS: 80061

== ENCOUNTER → 2017-07-24 | Outpatient (CLI) | payer OTHER | LOC: M PAIN 10:15 | DX: M79.1 Myalgia (principal); G62.9 Polyneuropathy, unspecified; F17.210 Nicotine dependence, cigarettes, uncomplicated; F41.9 Anxiety disorder, unspecified; Z79.891 Long term (current) use of opiate analgesic; Z79.899 Other long term (current) drug therapy; J30.2 Other seasonal allergic rhinitis; Z88.8 Allergy status to other drugs, medicaments and biological substances | CPT/HCPCS: G0463 ==

== ENCOUNTER → 2017-11-05 | Outpatient (CLI) | payer OTHER | LOC: M PAIN 10:15 | DX: M79.1 Myalgia (principal); G62.9 Polyneuropathy, unspecified; F17.210 Nicotine dependence, cigarettes, uncomplicated; Z79.891 Long term (current) use of opiate analgesic; Z79.899 Other long term (current) drug therapy; J30.2 Other seasonal allergic rhinitis; Z88.8 Allergy status to other drugs, medicaments and biological substances; Z98.51 Tubal ligation status; Z90.49 Acquired absence of other specified parts of digestive tract | CPT/HCPCS: G0463 ==

== ENCOUNTER → 2018-02-07 | Outpatient (REF) | payer OTHER ==
[2018-02-07 14:48] LABS: ALBUMIN 3.4 GM/DL (3.2-5.2); ALBUMIN/GLOBULIN RATIO 1.03 (1.00-1.93); ALKALINE PHOSPHATASE 92 U/L (45-117); ALT/SGPT 37 U/L (12-78); ANION GAP 9 MEQ/L (8-16); AST/SGOT 18 U/L (7-37); BILIRUBIN,TOTAL 0.3 MG/DL (0.2-1.0); BLOOD UREA NITROGEN 7 MG/DL (7-18); CALCIUM LEVEL 8.3 MG/DL (8.5-10.1); CARBON DIOXIDE LEVEL 25 MEQ/L (21-32); CHLORIDE LEVEL 108 MEQ/L (98-107); CHOLESTEROL LEVEL 173 MG/DL (<200); CHOLESTEROL RISK RATIO 9.611 (<5); CREATININE FOR GFR 0.86 MG/DL (0.55-1.30); GLOMERULAR FILTRATION RATE > 60.0 (>60); GLUCOSE, FASTING 82 MG/DL (70-100); HDL CHOLESTEROL 18 MG/DL (>40); LDL CHOLESTEROL 87 MG/DL (<100); NON-HDL-C 155 MG/DL; POTASSIUM SERUM 3.8 MEQ/L (3.5-5.1); SODIUM LEVEL 142 MEQ/L (136-145); THYROID STIMULATING HORMONE 0.906 uIU/ML (0.358-3.740); TOTAL PROTEIN 6.7 GM/DL (6.4-8.2); TRIGLYCERIDES LEVEL 339 MG/DL (<150)
== END ==
LOC: M LAB REF 12:24
DX: E78.5 Hyperlipidemia, unspecified (principal)

== ENCOUNTER → 2018-02-15 | Outpatient (CLI) | payer OTHER | LOC: M PAIN 11:15 | DX: M79.1 Myalgia (principal); G62.9 Polyneuropathy, unspecified; M54.5 Low back pain; G89.29 Other chronic pain; F41.9 Anxiety disorder, unspecified; M06.9 Rheumatoid arthritis, unspecified; F17.210 Nicotine dependence, cigarettes, uncomplicated; J30.89 Other allergic rhinitis; Z79.899 Other long term (current) drug therapy; Z88.6 Allergy status to analgesic agent; Z88.8 Allergy status to other drugs, medicaments and biological substances | CPT/HCPCS: G0463 ==

== ENCOUNTER → 2018-03-08 | Outpatient (CLI) | payer OTHER ==
[~2018-03-08] MED LIST changes: -/ACETCOD2T PO; -BACL10TA2 PO; -BACL1TAB9 PO; +BUPIVACAINE HCL 0.25% 30 ML VIAL As Ordered; -CLIN300C PO; -CLON-412 PO; -DILA4TAB13 PO; -FENT12PA TOP; -GABA-279 PO; -GABA-282 PO; -GABA300C2 PO; -GRAL600T PO; -IBUP80TA PO; -METH750T PO; -MORP-38 PO; -MORP15TA2 PO; -NORT25CA2 PO; -PAME25CA PO; -PERC10TA26 PO; -PERC7.5T PO; -SOMA350T PO; -TIZA4CAP PO; -TRAM50TA2 PO; -VOLT1GEL2 TOP; -ZOFR20TA PO; +diazePAM 5 MG TAB As Ordered; +oxyCODONE 5MG TAB As Ordered
== END ==
LOC: M PAIN 08:45
DX: M79.18 Myalgia, other site (principal); M54.5 Low back pain; M06.9 Rheumatoid arthritis, unspecified; G62.9 Polyneuropathy, unspecified; F41.9 Anxiety disorder, unspecified; J30.2 Other seasonal allergic rhinitis; Z79.891 Long term (current) use of opiate analgesic; Z79.899 Other long term (current) drug therapy; Z88.6 Allergy status to analgesic agent; Z88.8 Allergy status to other drugs, medicaments and biological substances; Z86.2 Personal history of diseases of the blood and blood-forming organs and certain disorders involving the immune mechanism
CPT/HCPCS: 20552

== ENCOUNTER → 2018-03-22 | Outpatient (CLI) | payer OTHER | LOC: M PAIN 09:15 | DX: M79.18 Myalgia, other site (principal); G62.9 Polyneuropathy, unspecified; M79.7 Fibromyalgia; M06.9 Rheumatoid arthritis, unspecified; F41.9 Anxiety disorder, unspecified; F17.210 Nicotine dependence, cigarettes, uncomplicated; J30.9 Allergic rhinitis, unspecified; Z79.891 Long term (current) use of opiate analgesic; Z79.899 Other long term (current) drug therapy; Z88.6 Allergy status to analgesic agent; Z88.8 Allergy status to other drugs, medicaments and biological substances; Z86.2 Personal history of diseases of the blood and blood-forming organs and certain disorders involving the immune mechanism | CPT/HCPCS: G0463 ==

== ENCOUNTER → 2018-07-25 | Outpatient (CLI) | payer OTHER ==
[~2018-07-25] MED LIST changes: +/ACETCOD2T PO; +BACL10TA2 PO; +BACL1TAB9 PO; -BUPIVACAINE HCL 0.25% 30 ML VIAL As Ordered; +CLIN300C PO; +CLON-412 PO; +DILA4TAB13 PO; +FENT12PA TOP; +GABA-1171 PO; +GABA-843 PO; +GABA300C2 PO; +GRAL600T PO; +IBUP80TA PO; +METH750T PO; +MORP-38 PO; +MORP15TA2 PO; +NORT25CA2 PO; +PAME25CA PO; +PERC10TA26 PO; +PERC7.5T PO; +SOMA350T PO; +TIZA4CAP PO; +TRAM50TA2 PO; +VOLT1GEL2 TOP; +ZOFR4TAB16 PO; -diazePAM 5 MG TAB As Ordered; -oxyCODONE 5MG TAB As Ordered
--- NOTE | 2018-08-09 02:00 | ECWPNPC ---
PATIENT NAME: ADELFO MACIAS : 1980 GENDER: FEMALE VISIT DATE: 07/25/2018 DISCHARGE DATE: 07/25/18 0950 VISIT LOCKED DATE TIME: PHYSICIAN: ANGEL LUIS SMITH RESOURCE: ANGEL LUIS SMITH REASON FOR APPOINTMENT 1. BACK HISTORY OF PRESENT ILLNESS HISTORY OF PRESENT ILLNESS: HERE FOR F/U OF CHRONIC LOW BACK PAIN.PAIN HAS BEEN EXCRUCIATING OVER THE PAST 2 WEEKS.SHE IS UNABLE TO ATTEND TO HER ADL'S.IN OBVIOUS SEVERE DISCOMFORT THIS AM.RATING PAIN VAS 10/10.DENIES INJURY.DENIES BOWEL OR BLADDER INCONTINENCE. PAIN THE PATIENT DESCRIBES THE PAIN... FALL RISK SCREENING: SCREENING : NO FALLS IN THE PAST YEAR. 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 NERVE CONDUCTION DONE AT [facility] LOST FEELING IN RIGHT HAND PINCHED NERVE RIGHT ELBOW ALLERGIES ENVIRONMENTAL: ALLERGY NSAIDS: INTERNAL BLEED - ALLERGY STEROID INJECTIONS: SEVERE PAIN - ALLERGY ASPIRIN: VOMIT - ALLERGY SURGICAL HISTORY LAPAROSCOPY COLONOSCOPY-WNL 2013 CHOLECYSTECTOMY 2012 TUBALIGATION APPENDECTOMY RIGHT SHOULDER REPAIR FAMILY HISTORY FATHER: ALIVE MOTHER: ALIVE 56 YRS, DIAGNOSED WITH DIABETES SOCIAL HISTORY GENERAL: TOBACCO USE ARE YOU A:CURRENT SMOKER ARE YOU INTERESTED IN QUITTING?THINKING ABOUT QUITTING STATES SHE IS TRYING TO CUT BACK AND QUIT. COUNSELED THE PATIENT ON SMOKING CESSATION, EDUCATION [id number]/28/2018 HOW MANY CIGARETTES A DAY DO YOU SMOKE?11-20 HOW SOON AFTER YOU WAKE UP DO YOU SMOKE YOUR FIRST CIGARETTE?WITHIN 5 MIN HOW OFTEN DO YOU SMOKE CIGARETTES?EVERY DAY PATIENT COUNSELED ON THE DANGERS OF TOBACCO USE AND URGED TO QUIT:07/25/2018 RECREATIONAL DRUG USE DRUG USE?NO ORTHODOXY [id number] OTHER LANGUAGE LANGUAGES SPOKEN:[place] EDUCATION LEVEL OF EDUCATION:HIGH SCHOOL LEARNING BARRIERS / SPECIAL NEEDS BARRIERS TO LEARNING?NO HEARING IMPAIRED?NO VISION IMPAIRED?NO COGNITIVELY IMPAIRED?NO READINESS TO LEARN?YES LEARNING PREFERENCES?YES :HANDOUTS DOMESTIC VIOLENCE DO YOU FEEL SAFE IN YOUR ENVIRONMENT?YES PAIN CLINIC PFS, CLERGY, PUBLIC HEALTH REFERRALS PFS REFERRAL NEEDED?NO CLERGY REFERRAL NEEDED?NO PUBLIC HEALTH REFERRAL NEEDED?NO WAS THE PROVIDER NOTIFIED OF ANY PERTINENT INFO?NO HAS THE PATIENT BEEN EDUCATED REGARDING HIS/HER PLAN OF CARE?YES HAS THE PATIENT BEEN EDUCATED REGARDING PAIN, THE RISK FOR PAIN, THE IMPORTANCE OF EFFECTIVE PAIN MANAGEMENT, AND THE PAIN ASSESSMENT PROCESS?YES ADVANCE DIRECTIVE ADVANCE DIRECTIVE DISCUSSED WITH PATIENT:YES HCP - ALEXA MACIAS (SISTER) [phone] REVIEWED WITH PATIENT 02/15/18 1134 JSREVIEWED WITH PT 03/22/18 8462 BV. HOSPITALIZATION/MAJOR DIAGNOSTIC PROCEDURE SURGERIES REVIEW OF SYSTEMS REVIEWED BY: PROVIDER: ANGEL LUIS MORALES . CONSTITUTIONAL: ANY CHANGE IN YOUR MEDICAL CONDITION? NO . CHILLS NO . FEVER NO . INFECTION: DO YOU HAVE NEW INFECTIONS? NO . DO YOU HAVE HISTORY OF MRSA? NO . MUSCULOSKELETAL: ANY NEW PATTERNS OF PAIN OR NUMBNESS? NO . GASTROENTEROLOGY: ANY NEW CHANGE IN BOWEL CONTROL? NO . GENITOURINARY: ANY NEW CHANGE IN BLADDER CONTROL? NO . IS THERE A CHANCE YOU COULD BE ? NO . HEMATOLOGY/LYMPH: DO YOU TAKE ANY BLOOD THINNERS? (FOR EXAMPLE- COUMADIN, PLAVIX, AGGRENOX, PLATEL, PRADAXA, OR XARELTO) NO . WHEN WAS YOUR LAST DOSE? DATE: TIME: . NEUROLOGY: HAVE YOU FALLEN IN THE PAST 12 MONTHS? NO . ANY NEW EXTREMITY NUMBNESS OR WEAKNESS? NO . CARDIOLOGY: DO YOU HAVE A PACEMAKER OR DEFIBRILLATOR? NO . RESPIRATORY: HAVE YOU BEEN SICK IN THE PAST WEEK? NO . FEVER NO . FLU LIKE SYMPTOMS? NO . COUGH NO . INTEGUMENTARY: DO YOU HAVE ANY RASHES OR OPEN SORES? NO . ALLERGIC/IMMUNO: ARE YOU ALLERGIC TO IV DYE? NO . ANY NEW ALLERGIES? NO . PSYCHIATRIC: DO YOU HAVE THOUGHTS OF HURTING YOURSELF OR SOMEONE ELSE? NO . ARE YOU ABUSED, NEGLECTED, OR IN AN UNSAFE ENVIRONMENT? NO . ENDOCRINOLOGY: ARE YOU DIABETIC? NO . OTHER: DO YOU NEED ANY PRESCRIPTIONS? NO . IF YES, PLEASE LIST: ____ . ANY NEW PROBLEMS WITH YOUR MEDICATIONS? NO . WHEN DID YOU LAST EAT? ____ . WHEN DID YOU LAST DRINK? ____ . WHAT DID YOU LAST DRINK? ____ . NAME OF PERSON DRIVING YOU HOME? ____ . DO YOU HAVE ANY OTHER QUESTIONS OR CONCERNS PT STATES SHE IS EXTREMEM PAIN ON HER RIGHT SIDE . VITAL SIGNS WT 202.6 LBS, HT 66", BMI 32.70 INDEX, BP 154/87 MM HG, HR 96 /MIN, RR 18 /MIN, TEMP 97.3 F, OXYGEN SAT % 100%, NA INITIALS SC 08:41, REVIEWED BY: KG. EXAMINATION GENERAL EXAMINATION: GENERAL APPEARANCE:AWAKE,ALERT ,PLEAASANT . PSYCHAFFECT NORMAL . LUNGS:LUNG VARGAS ARE CLEAR TO AUSCULTATION BILATERALLY. GOOD MOVEMENT OF AIR . HEART:S1, S2 IN A REGULAR RATE AND RHYTHM. NO SIGNIFICANT MURMURS, RUBS OR GALLOPS NOTED . MUSCULOSKELETAL:MUSCLE STRENGTH TESTING 4/5 BILATERAL LOWER EXTREMITIES. LUMBAR SACRAL SPINETRIGGER POINTS:, ELICITED WITH PALPATION OVER LUMBAR PARAVERTEBRAL MUSCLES AND RESTRICTION OF ROM IN THIS AREA. ASSESSMENTS ACUTE LOW BACK PAIN WITH RADICULAR SYMPTOMS, DURATION LESS THAN 6 WEEKS - M54.10 (PRIMARY) MYALGIA, OTHER SITE - M79.18 TREATMENT ACUTE LOW BACK PAIN WITH RADICULAR SYMPTOMS, DURATION LESS THAN 6 WEEKS STOP BACLOFEN TABLET, 20 MG, 1 TABLET WITH FOOD OR MILK, ORALLY, EVERY 8 HRS CONTINUE NORTRIPTYLINE HCL CAPSULE, 25 MG, 1 CAPSULE, ORALLY, BEFORE BEDTIME STOP TRAMADOL HCL TABLET, 50 MG, 1-2, ORALLY, Q4-6H PRN MDD6 CONTINUE LYRICA CAPSULE, 150 MG, 1, ORALLY, BID MDD2 START VALIUM TABLET, 5 MG, 1 TABLET NEEDED, ORALLY, Q8H PRN MDD3, 10 DAY(S), 30, REFILLS 0 START NORCO TABLET, 10-325 MG, 1 TABLET NEEDED, ORALLY, EVERY 6 HRS PRN MDD4, 10 DAY(S), 40, REFILLS 0 [facility] MRI SPINE, L.S. WITHOUT [id number],HEATHER L 08/05/2018 3:15:19 PM > AMANDA SHAFFER 08/05/2018 11:13:30 AM > MRI LUMBAR SPINE W/O CONTRAST ([id number]) APPROVED AT [facility] 08/05/18-09/19/18 AUTH# [id number]. OKAY TO BOOK NOTES: TPI LOW BACK W STEROIDS, ISTOP REGISTRY REVIEWED AND DEMONSTRATES COMPLLIANCE. BRINGS IN MEDICATIONS WHICH IS APPROPRIATE FOR WHAT WAS DISPENSED. RECENT URINE TOXICOLOGY REVIEWED. NO UNAUTHORIZED MEDICATIONS. NO ILLICIT SUBSTANCES AND PRESCRIBED MEDICATIONS WERE PRESENT. , RISKS AND BENEFITS OF NARCOTIC/OPIOD MEDICATIONS WERE REVIEWED WITH PATIENT - THIS INCLUDES BUT IS NOT LIMITED TO RISK OF DEPENDANCE/DEVELOPMENT OF ADDICTION, MOOD DISTURBANCE AND DEPRESSION, OSTEOPOROSIS, HORMONAL AND LABIDAL CHANGES, RESPIRATORY DEPRESSION AND . PATIENT IS ADVISED NOT TO DRIVE OR DRINK ALCOHOL WHILE ON THESE MEDICATIONS. PROCEDURE CODES FA211 ESTABILISHED PATIENT [facility] CHARGE DISPOSITION & COMMUNICATION FOLLOW UP POST (REASON: TPI LOW BACK W STEROIDS) ELECTRONICALLY SIGNED BY ANDREW HARRIS ON 08/08/2018 AT 08:47 AM EDT DISCLAIMER : THIS IS A VISIT SUMMARY EXTRACTED FROM THE [employer] CHART. IT IS NOT A COPY OF THE [employer] PROGRESS NOTE. LASHAY
== END ==
LOC: M PAIN 08:30
PROVIDERS: ATTEND Nurse Practitioner Family
DX: M54.10 Radiculopathy, site unspecified (principal); M79.18 Myalgia, other site; M06.9 Rheumatoid arthritis, unspecified; F17.210 Nicotine dependence, cigarettes, uncomplicated; J30.9 Allergic rhinitis, unspecified; Z79.899 Other long term (current) drug therapy; Z88.6 Allergy status to analgesic agent; Z88.8 Allergy status to other drugs, medicaments and biological substances

== ENCOUNTER → 2018-08-07 | Outpatient (CLI) | payer OTHER ==
[~2018-08-07] MED LIST changes: +BUPIVACAINE HCL 0.25% 10 ML VIAL As Ordered ONE; +BUPIVACAINE HCL 0.25% 30 ML VIAL As Ordered ONE; +TRIAMCINOLONE ACETONIDE SUSP 40 MG/ML VIAL (J3301) As Ordered ONE; +diazePAM 5 MG TAB As Ordered ONE; +oxyCODONE 5MG TAB As Ordered ONE
--- NOTE | 2018-08-19 00:19 | ECWPNPC ---
PATIENT NAME: ADELFO MACIAS : 1980 GENDER: FEMALE VISIT DATE: 08/07/2018 DISCHARGE DATE: 08/07/18 1504 VISIT LOCKED DATE TIME: PHYSICIAN: KYAW ROJAS MD RESOURCE: KYAW ROJAS MD REASON FOR APPOINTMENT 1. TPI LOW BACK W STEROIDS HISTORY OF PRESENT ILLNESS HISTORY OF PRESENT ILLNESS: PAIN THE PATIENT DESCRIBES THE PAIN... FALL RISK SCREENING: SCREENING : NO FALLS IN THE PAST YEAR. CURRENT MEDICATIONS TAKING NORTRIPTYLINE HCL 25 MG CAPSULE 1 CAPSULE ORALLY BEFORE BEDTIME, NOTES: 08/06/18 2030 TAKING LYRICA 150 MG CAPSULE 1 ORALLY BID MDD2, NOTES: 0500 TAKING VALIUM 5 MG TABLET 1 TABLET NEEDED ORALLY Q8H PRN MDD3, NOTES: NONE RECENT TAKING NORCO 10-325 MG TABLET 1 TABLET NEEDED ORALLY EVERY 6 HRS PRN MDD4, NOTES: NONE RECENT TAKING BACLOFEN 20 MG TABLET 1 TABLET WITH FOOD OR MILK ORALLY EVERY 8 HRS NEEDED, NOTES: 0500 TAKING TRAMADOL HCL 50 MG TABLET ORALLY EVERY 4 HOURS NEEDED, NOTES: 0500 NOT-TAKING ZOFRAN 4 MG TABLET 2 TABLETS ORALLY ONCE A DAY NOT-TAKING GABAPENTIN 600 MG TABLET 1 TABLET ORALLY THREE TIMES A DAY MEDICATION LIST REVIEWED AND RECONCILED WITH THE PATIENT PAST MEDICAL HISTORY ANEMIA ANXIETY D/O 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 COUNSELED THE PATIENT ON SMOKING CESSATION, EDUCATION NNYNTSGE26/20/2019 HOW MANY CIGARETTES A DAY DO YOU SMOKE?11-20 HOW SOON AFTER YOU WAKE UP DO YOU SMOKE YOUR FIRST CIGARETTE?WITHIN 5 MIN HOW OFTEN DO YOU SMOKE CIGARETTES?EVERY DAY PATIENT COUNSELED ON THE DANGERS OF TOBACCO USE AND URGED TO QUIT:08/07/2018 LATEX QUESTIONNAIRE LATEX ALLERGY : HAVE YOU EVER DEVELOPED ANY TYPE OF REACTION AFTER HANDLING LATEX PRODUCTS SUCH RUBBER GLOVES, CONDOMS, DIAPHRAGMS, BALLOONS, SOCKS, OR UNDERWEAR?NO LATEX ALLERGY : HAVE YOU EVER DEVELOPED ANY TYPE OF REACTION DURING OR AFTER DENTAL APPOINTMENT, VAGINAL/RECTAL EXAMINATION, SURGICAL PROCEDURE, OR ANY OTHER EXPOSURE?NO LATEX RISK : HAVE YOU EVER HAD ANY DIFFICULTY BREATHING OR HIVES AFTER EATING OR HANDLING ANY FRUITS, OR VEGETABLES; SUCH KIWI, BANANAS, STONE FRUITS, OR CHESTNUTSNO LATEX RISK : DO YOU HAVE A PREVIOUS PERSONAL HISTORY OF MORE THAN NINE SURGERIES, SPINA BIFIDA, OR REPEATED CATHERTIZATIONS? NO LATEX RISK : ARE YOU FREQUENTLY EXPOSED TO LATEX PRODUCTS IN YOUR OCCUPATION?NO DATE ASKED : 08/07/2018 RECREATIONAL DRUG USE DRUG USE?NO ISLAM [id number] OTHER LANGUAGE LANGUAGES SPOKEN:LITHUANIAN EDUCATION LEVEL OF EDUCATION:HIGH SCHOOL LEARNING BARRIERS / SPECIAL NEEDS BARRIERS TO LEARNING?NO HEARING IMPAIRED?NO VISION IMPAIRED?NO COGNITIVELY IMPAIRED?NO READINESS TO LEARN?YES LEARNING PREFERENCES?YES :HANDOUTS DOMESTIC VIOLENCE DO YOU FEEL SAFE IN YOUR ENVIRONMENT?YES PAIN CLINIC PFS, CLERGY, PUBLIC HEALTH REFERRALS PFS REFERRAL NEEDED?NO CLERGY REFERRAL NEEDED?NO PUBLIC HEALTH REFERRAL NEEDED?NO WAS THE PROVIDER NOTIFIED OF ANY PERTINENT INFO?NO HAS THE PATIENT BEEN EDUCATED REGARDING HIS/HER PLAN OF CARE?YES HAS THE PATIENT BEEN EDUCATED REGARDING PAIN, THE RISK FOR PAIN, THE IMPORTANCE OF EFFECTIVE PAIN MANAGEMENT, AND THE PAIN ASSESSMENT PROCESS?YES ADVANCE DIRECTIVE ADVANCE DIRECTIVE DISCUSSED WITH PATIENT:YES HCP - ALEXA MACIAS (SISTER) [phone] REVIEWED WITH PATIENT 02/15/18 1134 JSREVIEWED WITH PT 03/22/18 0938 BVREVIEWED WITH PATIENT 08/07/18 1406 JS. HOSPITALIZATION/MAJOR DIAGNOSTIC PROCEDURE SURGERIES REVIEW OF SYSTEMS REVIEWED BY: PROVIDER: . CONSTITUTIONAL: ANY CHANGE IN YOUR MEDICAL CONDITION? NO . CHILLS NO . FEVER NO . INFECTION: DO YOU HAVE NEW INFECTIONS? NO . DO YOU HAVE HISTORY OF MRSA? NO . MUSCULOSKELETAL: ANY NEW PATTERNS OF PAIN OR NUMBNESS? NO . GASTROENTEROLOGY: ANY NEW CHANGE IN BOWEL CONTROL? NO . GENITOURINARY: ANY NEW CHANGE IN BLADDER CONTROL? NO . IS THERE A CHANCE YOU COULD BE ? NO . HEMATOLOGY/LYMPH: DO YOU TAKE ANY BLOOD THINNERS? (FOR EXAMPLE- COUMADIN, PLAVIX, AGGRENOX, PLATEL, PRADAXA, OR XARELTO) NO . WHEN WAS YOUR LAST DOSE? DATE: TIME: . NEUROLOGY: HAVE YOU FALLEN IN THE PAST 12 MONTHS? NO . ANY NEW EXTREMITY NUMBNESS OR WEAKNESS? NO . CARDIOLOGY: DO YOU HAVE A PACEMAKER OR DEFIBRILLATOR? NO . RESPIRATORY: HAVE YOU BEEN SICK IN THE PAST WEEK? NO . FEVER NO . FLU LIKE SYMPTOMS? NO . COUGH NO . INTEGUMENTARY: DO YOU HAVE ANY RASHES OR OPEN SORES? NO . ALLERGIC/IMMUNO: ARE YOU ALLERGIC TO IV DYE? NO . ANY NEW ALLERGIES? NO . PSYCHIATRIC: DO YOU HAVE THOUGHTS OF HURTING YOURSELF OR SOMEONE ELSE? NO . ARE YOU ABUSED, NEGLECTED, OR IN AN UNSAFE ENVIRONMENT? NO . ENDOCRINOLOGY: ARE YOU DIABETIC? NO . OTHER: DO YOU NEED ANY PRESCRIPTIONS? NO . IF YES, PLEASE LIST: ____ . ANY NEW PROBLEMS WITH YOUR MEDICATIONS? NO . WHEN DID YOU LAST EAT? ____08/06/18 2030 . WHEN DID YOU LAST DRINK? ____08/07/18 1200 . WHAT DID YOU LAST DRINK? ____WATER . NAME OF PERSON DRIVING YOU HOME? ____ELIZABETH LIANG (BROTHER) . DO YOU HAVE ANY OTHER QUESTIONS OR CONCERNS NO . VITAL SIGNS WT 205.8 LBS, HT 66", BMI 33.21 INDEX, BP 119/82 MM HG, HR 81 /MIN, RR 18 /MIN, TEMP 97.0 F, OXYGEN SAT % 99%, SAFE IN ENV? (Y/N) YES, NA INITIALS AW 1256, REVIEWED BY: DEMIAN. ASSESSMENTS MYALGIA, OTHER SITE - M79.18 (PRIMARY) PROCEDURES PN TRIGGER POINT INJECTION WITH STEROIDS PRE PROCEDURE DIAGNOSIS 1. MYALGIA 2. PAIN AT RIGHT LOW BACK AREA POST PROCEDURE DIAGNOSIS 1. MYALGIA 2. PAIN AT RIGHT LOW BACK AREA PROCEDURE TRIGGER POINT INJECTION AT RIGHT LOW BACK AREA SURGEON DR. KYAW ROJAS DISTANCE LEARNING COORDINATOR NONE ANESTHESIA LOCAL PRE PROCEDURE NOTE THE PATIENT HAS A HISTORY OF CHRONIC PAIN AT THE RIGHT LOW BACK AREA. I EVALUATE THE PATIENT AND REVIEWED THE CHART. THERE IS EVIDENCE OF BANDS OF TISSUE WITH RESTRICTION OF MOVEMENT AND PRESENCE OF TRIGGER POINT AT THE AFFECTED AREA. I WENT OVER THE RISKS, ALTERNATIVES, AND BENEFITS ASSOCIATED WITH THIS PROCEDURE. THE PATIENT WOULD LIKE TO PROCEED AND GIVE CONSENT TO PERFORMED THE PROCEDURE. THE PATIENT DENIES UNEXPLAINABLE WEIGHT LOSS, FEVER, CHILLS, OR NEW CHANGES IN URINARY OR BOWEL CONTROL DESCRIPTION OF PROCEDURE THE PATIENT WAS BROUGHT TO THE PROCEDURE ROOM AND PLACED IN THE SITTING POSITION. THE AREA WAS CLEANED WITH ALCOHOL. THE PROCEDURE WAS DONE USING ASEPTIC STERILE TECHNIQUE. I CHECKED LATERALITY AND THE LEVEL WHERE THE PROCEDURE WAS GOING TO BE PERFORMED WITH THE PATIENT AND THE SUPPORTING STAFF AT THE MOMENT OF THE TIME OUT IN THE PROCEDURE ROOM. USING A 25-GAUGE NEEDLE, TRIGGER POINTS WERE INJECTED AT THE RIGHT LOW BACK AREA WITH A TOTAL OF 40 ML OF BUPIVACAINE 0.25% AND KENALOG 40 MG. THERE WAS NO EVIDENCE OF BLOOD, PARESTHESIA OR CEREBROSPINAL FLUID DURING THE PROCEDURE. THE PATIENT WAS SENT TO THE RECOVERY ROOM. THE PATIENT WAS MOVING THE EXTREMITIES AND DOING WELL. THERE WAS NO COMPLICATION DURING THE PROCEDURE POST PROCEDURE NOTE THE PATIENT WILL BE SEEN IN A FOLLOW UP IN THE NEXT FEW WEEKS. INSTRUCTIONS WERE GIVEN, QUESTIONS WERE ANSWERED, AND THE PATIENT EXPRESSED UNDERSTANDING AND AGREES WITH THE PLAN. I, ASHU SEVERINO, DOCUMENTED THE ABOVE INFORMATION ACTING A SCRIBE FOR DR. ROJAS. I HAVE REVIEWED THE ABOVE DOCUMENT, WRITTEN BY ASHU GILLILANDIBKhushbu AND I VERIFY THAT IT IS ACCURATE. PROCEDURE CODES 40050 INJ TRIGGER POINT 05/22 [facility] [place] COMMUNICATION FOLLOW UP 3 WEEKS ELECTRONICALLY SIGNED BY KYAW ROJAS MD, MD ON 08/18/2018 AT 07:38 PM EDT DISCLAIMER : THIS IS A VISIT SUMMARY EXTRACTED FROM THE [employer] CHART. IT IS NOT A COPY OF THE [employer] PROGRESS NOTE. LASHAY
== END ==
LOC: M PAIN 12:45
PROVIDERS: ATTEND Anesthesiology
DX: M79.18 Myalgia, other site (principal); M54.5 Low back pain; M06.9 Rheumatoid arthritis, unspecified; F17.210 Nicotine dependence, cigarettes, uncomplicated; J30.2 Other seasonal allergic rhinitis; Z79.899 Other long term (current) drug therapy; Z88.6 Allergy status to analgesic agent
CPT/HCPCS: 20552; J3301

== ENCOUNTER → 2018-08-15 | Outpatient (REF) | payer OTHER ==
[~2018-08-15] MED LIST changes: -BUPIVACAINE HCL 0.25% 10 ML VIAL As Ordered ONE; -BUPIVACAINE HCL 0.25% 30 ML VIAL As Ordered ONE; -TRIAMCINOLONE ACETONIDE SUSP 40 MG/ML VIAL (J3301) As Ordered ONE; -diazePAM 5 MG TAB As Ordered ONE; -oxyCODONE 5MG TAB As Ordered ONE
[2018-08-15 11:30] LABS: ALBUMIN 3.7 GM/DL (3.2-5.2); ALT/SGPT 20 U/L (12-78); BILIRUBIN,TOTAL 0.3 MG/DL (0.2-1.0); BLOOD UREA NITROGEN 6 MG/DL (7-18); CALCIUM LEVEL 8.3 MG/DL (8.5-10.1); CARBON DIOXIDE LEVEL 24 MEQ/L (21-32); CHLORIDE LEVEL 111 MEQ/L (98-107); CHOLESTEROL LEVEL 169 MG/DL (<200); CHOLESTEROL RISK RATIO 5.827 (<5); CREATININE FOR GFR 0.84 MG/DL (0.55-1.30); GLOMERULAR FILTRATION RATE > 60.0 (>60); GLUCOSE, FASTING 88 MG/DL (70-100); HDL CHOLESTEROL 29 MG/DL (>40); LDL CHOLESTEROL 115 MG/DL (<100); NON-HDL-C 140 MG/DL; POTASSIUM SERUM 3.3 MEQ/L (3.5-5.1); SODIUM LEVEL 142 MEQ/L (136-145); TOTAL PROTEIN 6.8 GM/DL (6.4-8.2); TRIGLYCERIDES LEVEL 126 MG/DL (<150)
== END ==
LOC: M LAB REF 10:44
PROVIDERS: ATTEND Family Medicine Addiction Medicine
DX: E78.1 Pure hyperglyceridemia (principal)

== ENCOUNTER → 2018-08-16 | Outpatient (CLI) | payer OTHER ==
--- NOTE | 2018-08-16 10:17 | REP ---
mr lumbar spine without contrast: HISTORY: Back pain. COMPARISON: 11/22/2016. Decreased signal intensity on T2-weighted images is present in the L4-5 and L5-S1 intervertebral discs. The discs are decreased in height. These findings are consistent with disc degeneration. There is no disc bulge or herniation at the L1-2 through L3-4 levels. The nerves exit the neural foramina without compression. A diffuse disc bulge and small right paracentral disc extrusion are present at the L4-5 level. The disc extrusion is slightly increased in size. There is inferior migration of disc material. There is minimal compression of the thecal sac and right L5 nerve as it exits the thecal sac and in the right L5 lateral recess.. There is hypertrophy of the posterior articulating facets. The L4 nerves exit the neural foramina without compression . A diffuse disc bulge and small left paracentral disc extrusion are present at the L5-S1 level. There is minimal compression of the thecal sac and left S1 nerve as it exits the thecal sac. A small right paracentral disc protrusion is present. There is minimal compression of the thecal sac and right S1 nerve as it exits the thecal sac. There is hypertrophy of the posterior articulating facets. The L5 nerves exit the neural foramina without compression. The conus medullaris is normal in appearance terminating at the level of the L1-2 intervertebral disc. Increased signal intensity on T2-weighted images is present in the endplates of the L4 through S1 vertebral bodies. This represents degenerative change. IMPRESSION: 1. Diffuse disc bulge and small right paracentral disc extrusion at the L4-5 level with minimal compression of the thecal sac and right L5 nerve as it exits the thecal sac and in the right L5 lateral recess. The disc extrusion is increased in size. 2. Diffuse disc bulge and small left paracentral disc protrusion at the L5-S1 level with minimal compression of the thecal sac and left S1 nerve as it exits the thecal sac. A small right paracentral disc protrusion is present. There is minimal compression of the right S1 nerve as it exits the thecal sac. The disc protrusions are a new finding. Electronically Signed by Tate Steve MD 08/16/2018 10:21 A
== END ==
LOC: M RAD 08:30
PROVIDERS: ATTEND Nurse Practitioner Family
DX: M51.16 Intervertebral disc disorders with radiculopathy, lumbar region (principal)

== ENCOUNTER → 2018-09-10 | Outpatient (CLI) | payer OTHER ==
[~2018-09-10] MED LIST changes: -/ACETCOD2T PO; +ACET1TAB15 PO; +FENT12DI12 TOP; -FENT12PA TOP
--- NOTE | 2018-09-25 01:16 | ECWPNPC ---
PATIENT NAME: ADELFO MACIAS : 1980 GENDER: FEMALE VISIT DATE: 09/10/2018 DISCHARGE DATE: 09/10/18 1138 VISIT LOCKED DATE TIME: PHYSICIAN: ANGEL LUIS SMITH RESOURCE: ANGEL LUIS SMITH HISTORY OF PRESENT ILLNESS HISTORY OF PRESENT ILLNESS: HERE FOR POST PROCEDURE F/U .HAD TPI LOW BACK ON 08/06/18.REPORTING REDUCTION IN PAIN FROM 10/10 VAS TO 7/10VAS FOR 2 WEEKS.IS IN EXTREME DISCOMFORT TODAY.RATING PAIN VAS 10/10.REVIEWED MRI L/S SPINE I ORDERD AT LAST VISIT.THIS IS SHOWING PROGRESSION OF L4/5 DISC PROTRUSION .THERE IS INFERIOR MIGRATION OF DISC MATERIAL.STATES PAIN AWAKENS HER AT NIGHT.DENIES BOWEL OR BLADDER INCONTINENCE.DISCUSSED MEDICATION AND TREATMENT OPTIONS. PAIN THE PATIENT DESCRIBES THE PAIN... FALL RISK SCREENING: SCREENING :NO FALLS REPORTED IN THE LAST YEAR CURRENT MEDICATIONS TAKING NORTRIPTYLINE HCL 25 MG CAPSULE 1 CAPSULE ORALLY BEFORE BEDTIME TAKING LYRICA 150 MG CAPSULE 1 ORALLY BID MDD2 TAKING BACLOFEN 20 MG TABLET 1 TABLET WITH FOOD OR MILK ORALLY EVERY 8 HRS NEEDED TAKING TRAMADOL HCL 50 MG TABLET ORALLY EVERY 4 HOURS NEEDED NOT-TAKING ZOFRAN 4 MG TABLET 2 TABLETS ORALLY ONCE A DAY NOT-TAKING GABAPENTIN 600 MG TABLET 1 TABLET ORALLY THREE TIMES A DAY NOT-TAKING VALIUM 5 MG TABLET 1 TABLET NEEDED ORALLY Q8H PRN MDD3 NOT-TAKING NORCO 10-325 MG TABLET 1 TABLET NEEDED ORALLY EVERY 6 HRS PRN MDD4 MEDICATION LIST REVIEWED AND RECONCILED WITH THE PATIENT PAST MEDICAL HISTORY ANEMIA ANXIETY D/O 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 HAS PATCHES GOING TO QUIT COUNSELED THE PATIENT ON SMOKING CESSATION, EDUCATION [id number]/23/2019 HOW MANY CIGARETTES A DAY DO YOU SMOKE?11-20 HOW SOON AFTER YOU WAKE UP DO YOU SMOKE YOUR FIRST CIGARETTE?WITHIN 5 MIN HOW OFTEN DO YOU SMOKE CIGARETTES?EVERY DAY PATIENT COUNSELED ON THE DANGERS OF TOBACCO USE AND URGED TO QUIT:08/07/2018 LATEX QUESTIONNAIRE LATEX ALLERGY : HAVE YOU EVER DEVELOPED ANY TYPE OF REACTION AFTER HANDLING LATEX PRODUCTS SUCH RUBBER GLOVES, CONDOMS, DIAPHRAGMS, BALLOONS, SOCKS, OR UNDERWEAR?NO LATEX ALLERGY : HAVE YOU EVER DEVELOPED ANY TYPE OF REACTION DURING OR AFTER DENTAL APPOINTMENT, VAGINAL/RECTAL EXAMINATION, SURGICAL PROCEDURE, OR ANY OTHER EXPOSURE?NO LATEX RISK : HAVE YOU EVER HAD ANY DIFFICULTY BREATHING OR HIVES AFTER EATING OR HANDLING ANY FRUITS, OR VEGETABLES; SUCH KIWI, BANANAS, STONE FRUITS, OR CHESTNUTSNO LATEX RISK : DO YOU HAVE A PREVIOUS PERSONAL HISTORY OF MORE THAN NINE SURGERIES, SPINA BIFIDA, OR REPEATED CATHERTIZATIONS? NO LATEX RISK : ARE YOU FREQUENTLY EXPOSED TO LATEX PRODUCTS IN YOUR OCCUPATION?NO DATE ASKED : 08/07/2018 RECREATIONAL DRUG USE DRUG USE?NO ALEVISM [id number] OTHER LANGUAGE LANGUAGES SPOKEN:SENEGALESE EDUCATION LEVEL OF EDUCATION:HIGH SCHOOL LEARNING BARRIERS / SPECIAL NEEDS BARRIERS TO LEARNING?NO HEARING IMPAIRED?NO VISION IMPAIRED?NO COGNITIVELY IMPAIRED?NO READINESS TO LEARN?YES LEARNING PREFERENCES?YES :HANDOUTS DOMESTIC VIOLENCE DO YOU FEEL SAFE IN YOUR ENVIRONMENT?YES PAIN CLINIC PFS, CLERGY, PUBLIC HEALTH REFERRALS PFS REFERRAL NEEDED?NO CLERGY REFERRAL NEEDED?NO PUBLIC HEALTH REFERRAL NEEDED?NO WAS THE PROVIDER NOTIFIED OF ANY PERTINENT INFO?NO HAS THE PATIENT BEEN EDUCATED REGARDING HIS/HER PLAN OF CARE?YES HAS THE PATIENT BEEN EDUCATED REGARDING PAIN, THE RISK FOR PAIN, THE IMPORTANCE OF EFFECTIVE PAIN MANAGEMENT, AND THE PAIN ASSESSMENT PROCESS?YES ADVANCE DIRECTIVE ADVANCE DIRECTIVE DISCUSSED WITH PATIENT:YES HCP - ALEXA MACIAS (SISTER) [phone] REVIEWED WITH PATIENT 02/15/18 1134 JSREVIEWED WITH PT 03/22/18 0989 BVREVIEWED WITH PATIENT 08/07/18 1406 JS. HOSPITALIZATION/MAJOR DIAGNOSTIC PROCEDURE SURGERIES REVIEW OF SYSTEMS REVIEWED BY: PROVIDER: ANGEL LUIS MORALES . CONSTITUTIONAL: ANY CHANGE IN YOUR MEDICAL CONDITION? NO . CHILLS NO . FEVER NO . INFECTION: DO YOU HAVE NEW INFECTIONS? NO . DO YOU HAVE HISTORY OF MRSA? NO . MUSCULOSKELETAL: ANY NEW PATTERNS OF PAIN OR NUMBNESS? YES, PAIN IN RIGHT SIDE, PT C/O LBP, FEELS LIKE SOMETHING IS SLIPPING IN TAILBONE . GASTROENTEROLOGY: ANY NEW CHANGE IN BOWEL CONTROL? NO . GENITOURINARY: ANY NEW CHANGE IN BLADDER CONTROL? NO . IS THERE A CHANCE YOU COULD BE ? NO . HEMATOLOGY/LYMPH: DO YOU TAKE ANY BLOOD THINNERS? (FOR EXAMPLE- COUMADIN, PLAVIX, AGGRENOX, PLATEL, PRADAXA, OR XARELTO) NO . WHEN WAS YOUR LAST DOSE? DATE: TIME: . NEUROLOGY: HAVE YOU FALLEN IN THE PAST 12 MONTHS? NO . ANY NEW EXTREMITY NUMBNESS OR WEAKNESS? NO . CARDIOLOGY: DO YOU HAVE A PACEMAKER OR DEFIBRILLATOR? NO . RESPIRATORY: HAVE YOU BEEN SICK IN THE PAST WEEK? NO . FEVER NO . FLU LIKE SYMPTOMS? NO . COUGH NO . INTEGUMENTARY: DO YOU HAVE ANY RASHES OR OPEN SORES? NO . ALLERGIC/IMMUNO: ARE YOU ALLERGIC TO IV DYE? NO . ANY NEW ALLERGIES? NO . PSYCHIATRIC: DO YOU HAVE THOUGHTS OF HURTING YOURSELF OR SOMEONE ELSE? NO . ARE YOU ABUSED, NEGLECTED, OR IN AN UNSAFE ENVIRONMENT? NO . ENDOCRINOLOGY: ARE YOU DIABETIC? NO . OTHER: DO YOU NEED ANY PRESCRIPTIONS? NO . IF YES, PLEASE LIST: ____ . ANY NEW PROBLEMS WITH YOUR MEDICATIONS? NO . WHEN DID YOU LAST EAT? ____ . WHEN DID YOU LAST DRINK? ____ . WHAT DID YOU LAST DRINK? ____ . NAME OF PERSON DRIVING YOU HOME? ____ . DO YOU HAVE ANY OTHER QUESTIONS OR CONCERNS NO . VITAL SIGNS WT 205 LBS, HT 66", BMI 33.08 INDEX, BP 134/86 MM HG, HR 84 /MIN, RR 16 /MIN, TEMP 97.6 F, OXYGEN SAT % 97, REVIEWED BY: EML. EXAMINATION GENERAL EXAMINATION: GENERAL APPEARANCE: AWAKE,ALERT ,PLEAASANT . PSYCH AFFECT NORMAL . LUNGS: LUNG VARGAS ARE CLEAR TO AUSCULTATION BILATERALLY. GOOD MOVEMENT OF AIR . HEART: S1, S2 IN A REGULAR RATE AND RHYTHM. NO SIGNIFICANT MURMURS, RUBS OR GALLOPS NOTED . MUSCULOSKELETAL: MUSCLE STRENGTH TESTING 4/5 BILATERAL LOWER EXTREMITIES. LUMBAR SACRAL SPINETRIGGER POINTS:, ELICITED WITH PALPATION OVER LUMBAR PARAVERTEBRAL MUSCLES AND RESTRICTION OF ROM IN THIS AREA , PALPATION: + FOR PAIN OVER L/S SPINE. + FOR PAIN OVER L/S PARSPINALS. DIAGNOSTIC TESTS REVIEWED MRI L/S SPINE-08/16/18. ASSESSMENTS PROTRUSION OF LUMBAR INTERVERTEBRAL DISC - M51.26 (PRIMARY) LUMBOSACRAL RADICULOPATHY - M54.17 TREATMENT PROTRUSION OF LUMBAR INTERVERTEBRAL DISC INCREASE LYRICA CAPSULE, 200 MG, 1, ORALLY, Q8H TID MDD3, 30 DAY(S), 90, REFILLS 2 CONTINUE BACLOFEN TABLET, 20 MG, 1 TABLET WITH FOOD OR MILK, ORALLY, EVERY 8 HRS NEEDED CONTINUE TRAMADOL HCL TABLET, 50 MG, ORALLY, EVERY 4 HOURS NEEDED NOTES: L4/5 INTRALAMINAR LESI. PROCEDURE CODES FA211 ESTABILISHED PATIENT [facility] CHARGE DISPOSITION & COMMUNICATION FOLLOW UP POST (REASON: L4/5 INTRALAMINAR LESI) ELECTRONICALLY SIGNED BY ANDREW HARRIS ON 09/24/2018 AT 05:39 PM EDT DISCLAIMER : THIS IS A VISIT SUMMARY EXTRACTED FROM THE [employer] CHART. IT IS NOT A COPY OF THE [employer] PROGRESS NOTE. ARABELLAD
== END ==
LOC: M PAIN 10:45
PROVIDERS: ATTEND Nurse Practitioner Family
DX: M51.26 Other intervertebral disc displacement, lumbar region (principal); M54.17 Radiculopathy, lumbosacral region; Z86.59 Personal history of other mental and behavioral disorders; M06.9 Rheumatoid arthritis, unspecified; G62.9 Polyneuropathy, unspecified; F17.210 Nicotine dependence, cigarettes, uncomplicated; Z88.6 Allergy status to analgesic agent; Z79.899 Other long term (current) drug therapy

== ENCOUNTER → 2018-10-08 | Outpatient (CLI) | payer OTHER ==
[~2018-10-08] MED LIST changes: +ISOVUE-M 300 61% 15ML VIAL (Q9967) As Ordered ONE; +LIDOCAINE 1% SDV INJ 30 ML VIAL As Ordered ONE; +diazePAM 5 MG TAB As Ordered ONE; +methylPREDNISolone SUSP 40 MG/ML (DEPO-medrol) VIAL (J1030) As Ordered ONE; +oxyCODONE 5MG TAB As Ordered ONE
--- NOTE | 2018-10-08 16:10 | REP ---
C-DAYSI VIEW LOWER LUMBAR SPINE: CLINICAL HISTORY: Pain. Three C-ARM views of the lower lumbar spine are performed during injection by Dr. Quintanilla. There is a lumbar epidural injection. Contrast is visualized at the L4-5 level. 8 seconds of fluoroscopy time was utilized. Electronically Signed by Odilon Coffey MD 10/09/2018 09:28 A
--- NOTE | 2018-10-18 03:29 | ECWPNPC ---
PATIENT NAME: ADELFO MACIAS : 1980 GENDER: FEMALE VISIT DATE: 10/08/2018 DISCHARGE DATE: 10/08/18 1349 VISIT LOCKED DATE TIME: PHYSICIAN: KYAW ROJAS MD RESOURCE: KYAW ROJAS MD REASON FOR APPOINTMENT 1. L4/5 INTRALAMINAR LESI HISTORY OF PRESENT ILLNESS HISTORY OF PRESENT ILLNESS: PAIN THE PATIENT DESCRIBES THE PAIN... FALL RISK SCREENING: SCREENING :NO FALLS REPORTED IN THE LAST YEAR CURRENT MEDICATIONS TAKING NORTRIPTYLINE HCL 25 MG CAPSULE 1 CAPSULE ORALLY BEFORE BEDTIME, NOTES: TAKING LYRICA 200 MG CAPSULE 1 ORALLY Q8H TID MDD3, NOTES: 10-08-18 0800 TAKING BACLOFEN 20 MG TABLET 1 TABLET WITH FOOD OR MILK ORALLY EVERY 8 HRS NEEDED, NOTES: 10-07-18 08 TAKING TRAMADOL HCL 50 MG TABLET 2 TAB ORALLY Q6-8H PRN MDD6, NOTES: 10-07-18 0900 TAKING VALIUM 5 MG TABLET 1 TABLET NEEDED ORALLY Q8H PRN MDD3, NOTES: 10-08-18 0530 TAKING NORCO 10-325 MG TABLET 1 TABLET NEEDED ORALLY EVERY 6 HRS PRN MDD4, NOTES: 10-08-18 0530 NOT-TAKING ZOFRAN 4 MG TABLET 2 TABLETS ORALLY ONCE A DAY NOT-TAKING GABAPENTIN 600 MG TABLET 1 TABLET ORALLY THREE TIMES A DAY MEDICATION LIST REVIEWED AND RECONCILED WITH THE PATIENT PAST MEDICAL HISTORY ANEMIA ANXIETY 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 HAS PATCHES GOING TO QUIT COUNSELED THE PATIENT ON SMOKING CESSATION, EDUCATION [id number]/23/2019 HOW MANY CIGARETTES A DAY DO YOU SMOKE?11-20 HOW SOON AFTER YOU WAKE UP DO YOU SMOKE YOUR FIRST CIGARETTE?WITHIN 5 MIN HOW OFTEN DO YOU SMOKE CIGARETTES?EVERY DAY PATIENT COUNSELED ON THE DANGERS OF TOBACCO USE AND URGED TO QUIT:10/08/2018 PAIN CLINIC PFS, CLERGY, PUBLIC HEALTH REFERRALS PFS REFERRAL NEEDED?NO CLERGY REFERRAL NEEDED?NO PUBLIC HEALTH REFERRAL NEEDED?NO WAS THE PROVIDER NOTIFIED OF ANY PERTINENT INFO?NO HAS THE PATIENT BEEN EDUCATED REGARDING HIS/HER PLAN OF CARE?YES HAS THE PATIENT BEEN EDUCATED REGARDING PAIN, THE RISK FOR PAIN, THE IMPORTANCE OF EFFECTIVE PAIN MANAGEMENT, AND THE PAIN ASSESSMENT PROCESS?YES LATEX QUESTIONNAIRE LATEX ALLERGY : HAVE YOU EVER DEVELOPED ANY TYPE OF REACTION AFTER HANDLING LATEX PRODUCTS SUCH RUBBER GLOVES, CONDOMS, DIAPHRAGMS, BALLOONS, SOCKS, OR UNDERWEAR?NO LATEX ALLERGY : HAVE YOU EVER DEVELOPED ANY TYPE OF REACTION DURING OR AFTER DENTAL APPOINTMENT, VAGINAL/RECTAL EXAMINATION, SURGICAL PROCEDURE, OR ANY OTHER EXPOSURE?NO LATEX RISK : HAVE YOU EVER HAD ANY DIFFICULTY BREATHING OR HIVES AFTER EATING OR HANDLING ANY FRUITS, OR VEGETABLES; SUCH KIWI, BANANAS, STONE FRUITS, OR CHESTNUTSNO LATEX RISK : DO YOU HAVE A PREVIOUS PERSONAL HISTORY OF MORE THAN NINE SURGERIES, SPINA BIFIDA, OR REPEATED CATHERTIZATIONS? NO LATEX RISK : ARE YOU FREQUENTLY EXPOSED TO LATEX PRODUCTS IN YOUR OCCUPATION?NO DATE ASKED : 08/07/2018 ADVANCE DIRECTIVE ADVANCE DIRECTIVE DISCUSSED WITH PATIENT:YES HCP - ALEXA MACIAS (SISTER) [phone] EDUCATION LEVEL OF EDUCATION:HIGH SCHOOL PRESYBETERIAN [id number] OTHER LANGUAGE LANGUAGES SPOKEN:ZAMBIAN DOMESTIC VIOLENCE DO YOU FEEL SAFE IN YOUR ENVIRONMENT?YES RECREATIONAL DRUG USE DRUG USE?NO LEARNING BARRIERS / SPECIAL NEEDS BARRIERS TO LEARNING?NO HEARING IMPAIRED?NO VISION IMPAIRED?NO COGNITIVELY IMPAIRED?NO READINESS TO LEARN?YES LEARNING PREFERENCES?YES :HANDOUTS REVIEWED WITH PATIENT 02/15/18 1134 JSREVIEWED WITH PT 03/22/18 0998 BVREVIEWED WITH PATIENT 08/07/18 1406 JS. HOSPITALIZATION/MAJOR DIAGNOSTIC PROCEDURE SURGERIES REVIEW OF SYSTEMS REVIEWED BY: PROVIDER: . CONSTITUTIONAL: ANY CHANGE IN YOUR MEDICAL CONDITION? NO . CHILLS NO . FEVER NO . INFECTION: DO YOU HAVE NEW INFECTIONS? NO . DO YOU HAVE HISTORY OF MRSA? NO . MUSCULOSKELETAL: ANY NEW PATTERNS OF PAIN OR NUMBNESS? NO . GASTROENTEROLOGY: ANY NEW CHANGE IN BOWEL CONTROL? NO . GENITOURINARY: ANY NEW CHANGE IN BLADDER CONTROL? NO . IS THERE A CHANCE YOU COULD BE ? NO . HEMATOLOGY/LYMPH: DO YOU TAKE ANY BLOOD THINNERS? (FOR EXAMPLE- COUMADIN, PLAVIX, AGGRENOX, PLATEL, PRADAXA, OR XARELTO) NO . WHEN WAS YOUR LAST DOSE? DATE: TIME: . NEUROLOGY: HAVE YOU FALLEN IN THE PAST 12 MONTHS? NO . ANY NEW EXTREMITY NUMBNESS OR WEAKNESS? NO . CARDIOLOGY: DO YOU HAVE A PACEMAKER OR DEFIBRILLATOR? NO . RESPIRATORY: HAVE YOU BEEN SICK IN THE PAST WEEK? NO . FEVER NO . FLU LIKE SYMPTOMS? NO . COUGH NO . INTEGUMENTARY: DO YOU HAVE ANY RASHES OR OPEN SORES? NO . ALLERGIC/IMMUNO: ARE YOU ALLERGIC TO IV DYE? NO . ANY NEW ALLERGIES? NO . PSYCHIATRIC: DO YOU HAVE THOUGHTS OF HURTING YOURSELF OR SOMEONE ELSE? NO . ARE YOU ABUSED, NEGLECTED, OR IN AN UNSAFE ENVIRONMENT? NO . ENDOCRINOLOGY: ARE YOU DIABETIC? NO . OTHER: DO YOU NEED ANY PRESCRIPTIONS? NO . IF YES, PLEASE LIST: ____ . ANY NEW PROBLEMS WITH YOUR MEDICATIONS? NO . WHEN DID YOU LAST EAT? [id number] . WHEN DID YOU LAST DRINK? [id number] . WHAT DID YOU LAST DRINK? WATER . NAME OF PERSON DRIVING YOU HOME? ____ . DO YOU HAVE ANY OTHER QUESTIONS OR CONCERNS NO . VITAL SIGNS WT 205.0 LBS, HT 66", BMI 33.08 INDEX, BP 136/84 MM HG, HR 87 /MIN, RR 16 /MIN, TEMP 97.8 F, OXYGEN SAT % 100%, NA INITIALS AW 1136, REVIEWED BY: KG. ASSESSMENTS INTERVERTEBRAL DISC DISORDER WITH RADICULOPATHY OF LUMBAR REGION - M51.16 (PRIMARY) PROCEDURES PRE PROCEDURE DIAGNOSIS LUMBAR DISC DISORDER WITH RADICULOPATHY POST PROCEDURE DIAGNOSIS LUMBAR DISC DISORDER WITH RADICULOPATHY PROCEDURE LUMBAR EPIDURAL STEROID INJECTION UNDER FLUOROSCOPIC GUIDANCE SURGEON DR. KYAW ROJAS ROLL COVERER NONE ANESTHESIA LOCAL PRE PROCEDURE NOTE THE PATIENT HAS A HISTORY OF CHRONIC LOW BACK PAIN. I EVALUATE THE PATIENT AND REVIEWED THE CHART. I WENT OVER THE RISKS, ALTERNATIVES, AND BENEFITS ASSOCIATED WITH THIS PROCEDURE. THE PATIENT WOULD LIKE TO PROCEED AND GIVE CONSENT TO PERFORMED THE PROCEDURE. THE PATIENT DENIES UNEXPLAINABLE WEIGHT LOSS, FEVER, CHILLS, OR NEW CHANGES IN URINARY OR BOWEL CONTROL. DESCRIPTION OF PROCEDURE THE PATIENT WAS BROUGHT TO THE PROCEDURE ROOM AND PLACED IN THE PRONE POSITION. THE LUMBOSACRAL AREA WAS CLEANED WITH BETADINE SOLUTION AND DRAPED ASEPTICALLY. THE PROCEDURE WAS DONE UNDER STERILE CONDITIONS. I CHECKED LATERALITY AND THE LEVEL WHERE THE PROCEDURE WAS GOING TO BE PERFORMED WITH THE PATIENT AND THE SUPPORTING STAFF AT THE MOMENT OF THE TIME OUT IN THE PROCEDURE ROOM. UNDER FLUOROSCOPIC GUIDANCE, THE TARGET POINT WAS SELECTED AT THE INTERLAMINAR LEVEL OF L4-L5. LIDOCAINE WAS USED TO NUMB THE SKIN AND THE SUBCUTANEOUS TISSUE BELOW IT. EPIDURAL TUOHY NEEDLE, 17-GAUGE, WAS ADVANCED UNDER FLUOROSCOPIC GUIDANCE AND FOLLOWING PATIENT FEEDBACK UNTIL THE EPIDURAL SPACE WAS REACHED, 7 CM DEEP INTO THE SKIN BY THE LOSS OF RESISTANCE TECHNIQUE. ISOVUE M DYE 30%, 0.25 ML, WAS INJECTED SHOWING ADEQUATE SPREAD OF THE DYE. THEN, A SOLUTION OF 3 ML OF NORMAL SALINE WITH DEPO-MEDROL 60 MG WAS INJECTED SLOWLY FOLLOWING PATIENT FEEDBACK. THERE WAS NO EVIDENCE OF BLOOD, PARESTHESIA OR CEREBROSPINAL FLUID DURING THE PROCEDURE. THE PATIENT WAS SENT TO THE RECOVERY ROOM. THE PATIENT WAS MOVING THE EXTREMITIES AND DOING WELL. THERE WAS NO COMPLICATION DURING THE PROCEDURE. FLUOROSCOPY TIME WAS 8 SECONDS. POST PROCEDURE NOTE THE PATIENT WILL BE SEEN IN A FOLLOW UP IN THE NEXT FEW WEEKS. INSTRUCTIONS WERE GIVEN, QUESTIONS WERE ANSWERED, AND THE PATIENT EXPRESSED UNDERSTANDING AND AGREES WITH THE PLAN. I, ASHU SEVERINO, DOCUMENTED THE ABOVE INFORMATION ACTING A SCRIBE FOR DR. ROJAS. I HAVE REVIEWED THE ABOVE DOCUMENT, WRITTEN BY ASHU GILLILANDIBKhushbu AND I VERIFY THAT IT IS ACCURATE. DIAGNOSTIC IMAGING [facility] FLUORO GUIDE SPINE INJECTION (PAIN)[id number] PROCEDURE CODES 6045F RADXPS IN END [id number] PXD [id number] LUMBAR/SACRAL W/ IMAGING DISPOSITION & COMMUNICATION FOLLOW UP 2 WEEKS ELECTRONICALLY SIGNED BY KYAW ROJAS MD, MD ON 10/16/2018 AT 04:30 PM EDT DISCLAIMER : THIS IS A VISIT SUMMARY EXTRACTED FROM THE [employer] CHART. IT IS NOT A COPY OF THE [employer] PROGRESS NOTE. MTDD
== END ==
LOC: M PAIN 11:45
PROVIDERS: ATTEND Anesthesiology
DX: G89.29 Other chronic pain (principal); M51.16 Intervertebral disc disorders with radiculopathy, lumbar region; M06.9 Rheumatoid arthritis, unspecified; F17.210 Nicotine dependence, cigarettes, uncomplicated; J30.89 Other allergic rhinitis; Z79.891 Long term (current) use of opiate analgesic; Z79.899 Other long term (current) drug therapy; Z88.6 Allergy status to analgesic agent
CPT/HCPCS: 62323; J1030; Q9967

== ENCOUNTER → 2018-11-14 | Outpatient (CLI) | payer OTHER ==
[~2018-11-14] MED LIST changes: -ISOVUE-M 300 61% 15ML VIAL (Q9967) As Ordered ONE; -LIDOCAINE 1% SDV INJ 30 ML VIAL As Ordered ONE; -diazePAM 5 MG TAB As Ordered ONE; -methylPREDNISolone SUSP 40 MG/ML (DEPO-medrol) VIAL (J1030) As Ordered ONE; -oxyCODONE 5MG TAB As Ordered ONE
--- NOTE | 2018-12-04 02:20 | ECWPNPC ---
PATIENT NAME: ADELFO MACIAS : 1980 GENDER: FEMALE VISIT DATE: 11/14/2018 DISCHARGE DATE: 11/14/18 1409 VISIT LOCKED DATE TIME: PHYSICIAN: ANGEL LUIS SMITH RESOURCE: ANGEL LUIS SMITH REASON FOR APPOINTMENT 1. POST PROC HISTORY OF PRESENT ILLNESS HISTORY OF PRESENT ILLNESS: HERE FOR POST PROCEDURE F/U.HAD L4/5 LESI ON 10/08/18.REPORTING >80% REDUCTION IN PAIN X4 PLUS WEEKS THEN PAIN ABRUPTLY RETURNED.SHE WAS SO HAPPY WITH RESULTS OF PROCEDURE AND STATES IT ALLOWED HER TO ENJOY TIME OUTSIDE AND PLAYING WITH HER SON.TODAY SHE IS IS IN SEVERE PAIN.PAIN IS LOCATED IN ITS USUAL LOCATION OF LOW BACK WITH RADIATION INTO RIGHT LEG.PAIN IS 10+/10 VAS.DISCUSSED MEDICATION AND TREATMENT OPTIONS.SHE WOULD LIKE TO AVOID SURGERY. PAIN THE PATIENT DESCRIBES THE PAIN... FALL RISK SCREENING: SCREENING :NO FALLS REPORTED IN THE LAST YEAR CURRENT MEDICATIONS TAKING NORTRIPTYLINE HCL 25 MG CAPSULE 1 CAPSULE ORALLY BEFORE BEDTIME TAKING LYRICA 200 MG CAPSULE 1 ORALLY Q8H TID MDD3 TAKING BACLOFEN 20 MG TABLET 1 TABLET WITH FOOD OR MILK ORALLY EVERY 8 HRS NEEDED TAKING TRAMADOL HCL 50 MG TABLET 2 TAB ORALLY Q6-8H PRN MDD6 TAKING VALIUM 5 MG TABLET 1 TABLET NEEDED ORALLY Q8H PRN MDD3 TAKING NORCO 10-325 MG TABLET 1 TABLET NEEDED ORALLY EVERY 6 HRS PRN MDD4 NOT-TAKING ZOFRAN 4 MG TABLET 2 TABLETS ORALLY ONCE A DAY NOT-TAKING GABAPENTIN 600 MG TABLET 1 TABLET ORALLY THREE TIMES A DAY MEDICATION LIST REVIEWED AND RECONCILED WITH THE PATIENT PAST MEDICAL HISTORY ANEMIA ANXIETY 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 SOCIAL HISTORY GENERAL: TOBACCO USE ARE YOU A:CURRENT SMOKER ARE YOU INTERESTED IN QUITTING?THINKING ABOUT QUITTING STATES SHE IS TRYING TO CUT BACK AND QUIT. HAS PATCHES GOING TO QUIT COUNSELED THE PATIENT ON SMOKING CESSATION, EDUCATION [id number] HOW MANY CIGARETTES A DAY DO YOU SMOKE?6-10 HOW SOON AFTER YOU WAKE UP DO YOU SMOKE YOUR FIRST CIGARETTE?WITHIN 5 MIN HOW OFTEN DO YOU SMOKE CIGARETTES?EVERY DAY PATIENT COUNSELED ON THE DANGERS OF TOBACCO USE AND URGED TO QUIT:11/14/2018 PAIN CLINIC PFS, CLERGY, PUBLIC HEALTH REFERRALS PFS REFERRAL NEEDED?NO CLERGY REFERRAL NEEDED?NO PUBLIC HEALTH REFERRAL NEEDED?NO WAS THE PROVIDER NOTIFIED OF ANY PERTINENT INFO? N/A HAS THE PATIENT BEEN EDUCATED REGARDING HIS/HER PLAN OF CARE?YES HAS THE PATIENT BEEN EDUCATED REGARDING PAIN, THE RISK FOR PAIN, THE IMPORTANCE OF EFFECTIVE PAIN MANAGEMENT, AND THE PAIN ASSESSMENT PROCESS?YES LATEX QUESTIONNAIRE LATEX ALLERGY : HAVE YOU EVER DEVELOPED ANY TYPE OF REACTION AFTER HANDLING LATEX PRODUCTS SUCH RUBBER GLOVES, CONDOMS, DIAPHRAGMS, BALLOONS, SOCKS, OR UNDERWEAR?NO LATEX ALLERGY : HAVE YOU EVER DEVELOPED ANY TYPE OF REACTION DURING OR AFTER DENTAL APPOINTMENT, VAGINAL/RECTAL EXAMINATION, SURGICAL PROCEDURE, OR ANY OTHER EXPOSURE?NO LATEX RISK : HAVE YOU EVER HAD ANY DIFFICULTY BREATHING OR HIVES AFTER EATING OR HANDLING ANY FRUITS, OR VEGETABLES; SUCH KIWI, BANANAS, STONE FRUITS, OR CHESTNUTSNO LATEX RISK : DO YOU HAVE A PREVIOUS PERSONAL HISTORY OF MORE THAN NINE SURGERIES, SPINA BIFIDA, OR REPEATED CATHERTIZATIONS? NO LATEX RISK : ARE YOU FREQUENTLY EXPOSED TO LATEX PRODUCTS IN YOUR OCCUPATION?NO DATE ASKED : 11/14/2018 ADVANCE DIRECTIVE ADVANCE DIRECTIVE DISCUSSED WITH PATIENT:YES 11/14/18 STATES SHE HAS HCP - ALEXA MACIAS (SISTER) [phone] EDUCATION LEVEL OF EDUCATION:HIGH SCHOOL ANABAPTISM [id number] OTHER LANGUAGE LANGUAGES SPOKEN:GREEK DOMESTIC VIOLENCE DO YOU FEEL SAFE IN YOUR ENVIRONMENT?YES ALCOHOL SCREENING DID YOU HAVE A DRINK CONTAINING ALCOHOL IN THE PAST YEAR?NO POINTS0 INTERPRETATIONNEGATIVE RECREATIONAL DRUG USE DRUG USE?NO LEARNING BARRIERS / SPECIAL NEEDS BARRIERS TO LEARNING?NO HEARING IMPAIRED?NO VISION IMPAIRED?NO COGNITIVELY IMPAIRED?NO READINESS TO LEARN?YES LEARNING PREFERENCES?YES :HANDOUTS LEARNING CAPABILITIES PRESENT?YES EMOTIONAL BARRIERS?NO SPECIAL DEVICES?NO RECOVERY COACH NEEDED?NO REVIEWED WITH PATIENT 02/15/18 1134 JSREVIEWED WITH PT 03/22/18 0987 BVREVIEWED WITH PATIENT 08/07/18 1406 JS. HOSPITALIZATION/MAJOR DIAGNOSTIC PROCEDURE SURGERIES ETHROIDITIS REVIEW OF SYSTEMS REVIEWED BY: PROVIDER: ANGEL LUIS MORALES . CONSTITUTIONAL: ANY CHANGE IN YOUR MEDICAL CONDITION? NO . CHILLS NO . FEVER NO . INFECTION: DO YOU HAVE NEW INFECTIONS? NO . DO YOU HAVE HISTORY OF MRSA? NO . MUSCULOSKELETAL: ANY NEW PATTERNS OF PAIN OR NUMBNESS? NO . GASTROENTEROLOGY: ANY NEW CHANGE IN BOWEL CONTROL? NO . GENITOURINARY: ANY NEW CHANGE IN BLADDER CONTROL? NO . IS THERE A CHANCE YOU COULD BE ? NO . HEMATOLOGY/LYMPH: DO YOU TAKE ANY BLOOD THINNERS? (FOR EXAMPLE- COUMADIN, PLAVIX, AGGRENOX, PLATEL, PRADAXA, OR XARELTO) NO . WHEN WAS YOUR LAST DOSE? DATE: TIME: . NEUROLOGY: HAVE YOU FALLEN IN THE PAST 12 MONTHS? NO . ANY NEW EXTREMITY NUMBNESS OR WEAKNESS? NO . CARDIOLOGY: DO YOU HAVE A PACEMAKER OR DEFIBRILLATOR? NO . RESPIRATORY: HAVE YOU BEEN SICK IN THE PAST WEEK? NO . FEVER NO . FLU LIKE SYMPTOMS? NO . COUGH NO . INTEGUMENTARY: DO YOU HAVE ANY RASHES OR OPEN SORES? NO . ALLERGIC/IMMUNO: ARE YOU ALLERGIC TO IV DYE? NO . ANY NEW ALLERGIES? NO . PSYCHIATRIC: DO YOU HAVE THOUGHTS OF HURTING YOURSELF OR SOMEONE ELSE? NO . ARE YOU ABUSED, NEGLECTED, OR IN AN UNSAFE ENVIRONMENT? NO . ENDOCRINOLOGY: ARE YOU DIABETIC? NO . OTHER: DO YOU NEED ANY PRESCRIPTIONS? NO . IF YES, PLEASE LIST: ____ . ANY NEW PROBLEMS WITH YOUR MEDICATIONS? NO . WHEN DID YOU LAST EAT? ____ . WHEN DID YOU LAST DRINK? ____ . WHAT DID YOU LAST DRINK? ____ . NAME OF PERSON DRIVING YOU HOME? ____ . DO YOU HAVE ANY OTHER QUESTIONS OR CONCERNS YES WAS WONDERING IF SHE CAN GET ANOTHER INJECTION. . VITAL SIGNS WT 204.8 LBS, HT 66", BMI 33.05 INDEX, BP 137/79 MM HG, HR 99 /MIN, RR 18 /MIN, TEMP 97.8 F, OXYGEN SAT % 99%, SAFE IN ENV? (Y/N) Y, NA INITIALS SC 13:11, REVIEWED BY: AD. EXAMINATION GENERAL EXAMINATION: GENERAL AWAKE,ALERT ,PLEAASANT . PSYCH AFFECT NORMAL . LUNGS: LUNG VARGAS ARE CLEAR TO AUSCULTATION BILATERALLY. GOOD MOVEMENT OF AIR . HEART: S1, S2 IN A REGULAR RATE AND RHYTHM. NO SIGNIFICANT MURMURS, RUBS OR GALLOPS NOTED . MUSCULOSKELETAL: MUSCLE STRENGTH TESTING 4/5 BILATERAL LOWER EXTREMITIES. LUMBAR SACRAL SPINETRIGGER POINTS:, ELICITED WITH PALPATION OVER LUMBAR PARAVERTEBRAL MUSCLES AND RESTRICTION OF ROM IN THIS AREA , PALPATION: + FOR PAIN OVER L/S SPINE. + FOR PAIN OVER L/S PARSPINALS. DIAGNOSTIC TESTS REVIEWED MRI L/S SPINE-08/16/18. ASSESSMENTS INTERVERTEBRAL DISC DISORDER WITH RADICULOPATHY OF LUMBAR REGION - M51.16 (PRIMARY) TREATMENT INTERVERTEBRAL DISC DISORDER WITH RADICULOPATHY OF LUMBAR REGION CONTINUE LYRICA CAPSULE, 200 MG, 1, ORALLY, Q8H TID MDD3 CONTINUE BACLOFEN TABLET, 20 MG, 1 TABLET WITH FOOD OR MILK, ORALLY, EVERY 8 HRS NEEDED CONTINUE TRAMADOL HCL TABLET, 50 MG, 2 TAB, ORALLY, Q6-8H PRN MDD6 CONTINUE VALIUM TABLET, 5 MG, 1 TABLET NEEDED, ORALLY, Q8H PRN MDD3, 5 DAYS, 10, REFILLS 0 REFILL NORCO TABLET, 10-325 MG, 1 TABLET NEEDED, ORALLY, EVERY 6 HRS PRN MDD4, 10 DAY(S), 40, REFILLS 0 NOTES: ISTOP REGISTRY REVIEWED AND DEMONSTRATES COMPLLIANCE. (REF # ) BRINGS IN MEDICATIONS WHICH IS APPROPRIATE FOR WHAT WAS DISPENSED. RECENT URINE TOXICOLOGY REVIEWED. NO UNAUTHORIZED MEDICATIONS. NO ILLICIT SUBSTANCES AND PRESCRIBED MEDICATIONS WERE PRESENT. URINE TOX TODAY, RISKS AND BENEFITS OF NARCOTIC/OPIOD MEDICATIONS WERE REVIEWED WITH PATIENT - THIS INCLUDES BUT IS NOT LIMITED TO RISK OF DEPENDANCE/DEVELOPMENT OF ADDICTION, MOOD DISTURBANCE AND DEPRESSION, OSTEOPOROSIS, HORMONAL AND LABIDAL CHANGES, RESPIRATORY DEPRESSION AND . PATIENT IS ADVISED NOT TO DRIVE OR DRINK ALCOHOL WHILE ON THESE MEDICATIONSL4/5 LESI, REVIEWED WITH PATIENT THE POTENTIAL RISK OF INCREASED SEDATION, RESPIRATORY SUPPRESSION AND WITH THE COMBINATION OF BENZODIAZAPINE AND OPIOD MEDICATIONS. PATIENT STATES HE UNDERSTANDS THIS RISK AND WISHES TO CONTINUE WITH THERAPY. PREVENTIVE MEDICINE PAIN CLINIC TEACHING: PROCEDURE TEACHING PT DECLINED PRINTED INFORMATION ON LUMBAR STEROID EPIDURAL INJECTION STATING SHE HAS HAD THEM AND IS FAMILIAR WITH THEM. PRINTED PRE-PROCEDURE INSTRUCTIONS GIVEN TO AND REVIEWED WITH PT AND SHE VERBALIZED UNDERSTANDING. AD. PROCEDURE CODES FA211 ESTABILISHED PATIENT [facility] CHARGE DISPOSITION & COMMUNICATION FOLLOW UP POST (REASON: L4/5 LESI) ELECTRONICALLY SIGNED BY ANDREW HARRIS ON 12/03/2018 AT 08:58 AM EDT DISCLAIMER : THIS IS A VISIT SUMMARY EXTRACTED FROM THE [employer] CHART. IT IS NOT A COPY OF THE [employer] PROGRESS NOTE. LASHAY
== END ==
LOC: M PAIN 13:00
PROVIDERS: ATTEND Nurse Practitioner Family
DX: M51.16 Intervertebral disc disorders with radiculopathy, lumbar region (principal); D64.9 Anemia, unspecified; F41.9 Anxiety disorder, unspecified; M06.9 Rheumatoid arthritis, unspecified; G57.93 Unspecified mononeuropathy of bilateral lower limbs; M79.7 Fibromyalgia; M79.18 Myalgia, other site; F17.210 Nicotine dependence, cigarettes, uncomplicated; Z90.49 Acquired absence of other specified parts of digestive tract; Z79.891 Long term (current) use of opiate analgesic; Z79.899 Other long term (current) drug therapy; J30.9 Allergic rhinitis, unspecified; Z88.6 Allergy status to analgesic agent

== ENCOUNTER → 2019-01-30 | Outpatient (CLI) | payer OTHER ==
[~2019-01-30] MED LIST changes: -MORP-38 PO; +MORP-69 PO
--- NOTE | 2019-01-31 01:44 | ECWPNPC ---
PATIENT NAME: ADELFO MACIAS : 1980 GENDER: FEMALE VISIT DATE: 01/30/2019 DISCHARGE DATE: 01/30/19 1059 VISIT LOCKED DATE TIME: PHYSICIAN: ANGEL LUIS SMITH RESOURCE: ANGEL LUIS SMITH REASON FOR APPOINTMENT 1. POST PROC HISTORY OF PRESENT ILLNESS HISTORY OF PRESENT ILLNESS: HERE FOR POST PROCEDURE F/U.HAD L4/5 LESI ON 01/01/19.REPORTING >80% REDUCTION IN PAIN THAT CONTINUES TODAY. HAPPY WITH RESULTS OF PROCEDURE AND STATES IT ALLOWED HER TO ENJOY TIME OUTSIDE AND PLAYING WITH HER SON.PAIN IS 6/10 VAS.DISCUSSED MEDICATION AND TREATMENT OPTIONS.SHE WOULD LIKE TO AVOID SURGERY. PAIN THE PATIENT DESCRIBES THE PAIN... THE PATIENT DESCRIBES THE PAIN... FALL RISK SCREENING: SCREENING :NO FALLS REPORTED IN THE LAST YEAR CURRENT MEDICATIONS TAKING NORTRIPTYLINE HCL 25 MG CAPSULE 1 CAPSULE ORALLY BEFORE BEDTIME TAKING BACLOFEN 20 MG TABLET 1 TABLET WITH FOOD OR MILK ORALLY EVERY 8 HRS NEEDED TAKING LYRICA 200 MG CAPSULE 1 ORALLY Q8H TID MDD3 TAKING TRAMADOL HCL 50 MG TABLET 2 TAB ORALLY Q6-8H PRN MDD6 TAKING VALIUM 5 MG TABLET 1 TABLET NEEDED ORALLY 1 PILL DAILY PRN MDD1, NOTES: PRN ONLY NOT-TAKING ZOFRAN 4 MG TABLET 2 TABLETS ORALLY ONCE A DAY NOT-TAKING GABAPENTIN 600 MG TABLET 1 TABLET ORALLY THREE TIMES A DAY NOT-TAKING NORCO 10-325 MG TABLET 1 TABLET NEEDED ORALLY Q12H PRN MDD2 MEDICATION LIST REVIEWED AND RECONCILED WITH THE PATIENT PAST MEDICAL HISTORY ANEMIA ANXIETY D/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 NERVE CONDUCTION DONE AT [facility] LOST FEELING IN RIGHT HAND PINCHED NERVE RIGHT ELBOW MYALGIA FIBROMYALGIA ALLERGIES ENVIRONMENTAL: SINUS CONGESTION,ITCHY EYES - ALLERGY NSAIDS: INTERNAL BLEED - SIDE EFFECTS ASPIRIN: VOMIT - SIDE EFFECTS SURGICAL HISTORY LAPAROSCOPY COLONOSCOPY-WNL 2013 CHOLECYSTECTOMY 2012 TUBALIGATION APPENDECTOMY RIGHT SHOULDER REPAIR FAMILY HISTORY FATHER: ALIVE, DOESN'T KNOW HISTORY OF FATHER MOTHER: ALIVE 56 YRS, LUPUS, DIAGNOSED WITH DIABETES, OTHER SPECIFIED CONDITIONS INFLUENCING HEALTH STATUS 1 SON(S) - HEALTHY. SOCIAL HISTORY GENERAL: TOBACCO USE ARE YOU A:CURRENT SMOKER ARE YOU INTERESTED IN QUITTING?READY TO QUIT STATES SHE IS TRYING TO CUT BACK AND QUIT. HAS PATCHES GOING TO QUIT HOW MANY CIGARETTES A DAY DO YOU SMOKE?5 OR LESS HOW SOON AFTER YOU WAKE UP DO YOU SMOKE YOUR FIRST CIGARETTE?WITHIN 5 MIN HOW OFTEN DO YOU SMOKE CIGARETTES?EVERY DAY PATIENT COUNSELED ON THE DANGERS OF TOBACCO USE AND URGED TO QUIT:01/30/2019 PAIN CLINIC PFS, CLERGY, PUBLIC HEALTH REFERRALS PFS REFERRAL NEEDED?NO CLERGY REFERRAL NEEDED?NO PUBLIC HEALTH REFERRAL NEEDED?NO WAS THE PROVIDER NOTIFIED OF ANY PERTINENT INFO? N/A HAS THE PATIENT BEEN EDUCATED REGARDING HIS/HER PLAN OF CARE?YES HAS THE PATIENT BEEN EDUCATED REGARDING PAIN, THE RISK FOR PAIN, THE IMPORTANCE OF EFFECTIVE PAIN MANAGEMENT, AND THE PAIN ASSESSMENT PROCESS?YES LATEX QUESTIONNAIRE LATEX ALLERGY : HAVE YOU EVER DEVELOPED ANY TYPE OF REACTION AFTER HANDLING LATEX PRODUCTS SUCH RUBBER GLOVES, CONDOMS, DIAPHRAGMS, BALLOONS, SOCKS, OR UNDERWEAR?NO LATEX ALLERGY : HAVE YOU EVER DEVELOPED ANY TYPE OF REACTION DURING OR AFTER DENTAL APPOINTMENT, VAGINAL/RECTAL EXAMINATION, SURGICAL PROCEDURE, OR ANY OTHER EXPOSURE?NO DATE ASKED : 11/14/2018 LATEX RISK : HAVE YOU EVER HAD ANY DIFFICULTY BREATHING OR HIVES AFTER EATING OR HANDLING ANY FRUITS, OR VEGETABLES; SUCH KIWI, BANANAS, STONE FRUITS, OR CHESTNUTSNO LATEX RISK : DO YOU HAVE A PREVIOUS PERSONAL HISTORY OF MORE THAN NINE SURGERIES, SPINA BIFIDA, OR REPEATED CATHERIZATIONS? NO LATEX RISK : ARE YOU FREQUENTLY EXPOSED TO LATEX PRODUCTS IN YOUR OCCUPATION?NO ADVANCE DIRECTIVE ADVANCE DIRECTIVE DISCUSSED WITH PATIENT:YES 11/14/18 STATES SHE HAS HCP - ALEXA GILBERTO (SISTER) [phone] EDUCATION LEVEL OF EDUCATION:HIGH SCHOOL JUDAISM [id number] OTHER LANGUAGE LANGUAGES SPOKEN:AUSTRALIAN DOMESTIC VIOLENCE DO YOU FEEL SAFE IN YOUR ENVIRONMENT?YES ALCOHOL SCREENING DID YOU HAVE A DRINK CONTAINING ALCOHOL IN THE PAST YEAR?NO POINTS0 INTERPRETATIONNEGATIVE RECREATIONAL DRUG USE DRUG USE?NO LEARNING BARRIERS / SPECIAL NEEDS BARRIERS TO LEARNING?NO HEARING IMPAIRED?NO VISION IMPAIRED?NO COGNITIVELY IMPAIRED?NO READINESS TO LEARN?YES LEARNING PREFERENCES?YES :HANDOUTS LEARNING CAPABILITIES PRESENT?YES EMOTIONAL BARRIERS?NO SPECIAL DEVICES?NO COLOR CHECKER NEEDED?NO REVIEWED WITH PATIENT 02/15/18 1134 JSREVIEWED WITH PT 03/22/18 0938 BVREVIEWED WITH PATIENT 08/07/18 1406 JS REVIEWED WITH PATIENT 01/01/19 1225 LAS REVIEWED WITH PATIENT 01/30/19 1034 NLJ. HOSPITALIZATION/MAJOR DIAGNOSTIC PROCEDURE SURGERIES ETHROIDITIS REVIEW OF SYSTEMS REVIEWED BY: PROVIDER: ANGEL LUIS MORALES . CONSTITUTIONAL: ANY CHANGE IN YOUR MEDICAL CONDITION? NO . CHILLS NO . FEVER NO . INFECTION: DO YOU HAVE NEW INFECTIONS? NO . DO YOU HAVE HISTORY OF MRSA? NO . MUSCULOSKELETAL: ANY NEW PATTERNS OF PAIN OR NUMBNESS? NO- STATES LESI RELIEVED PAIN AND CONTINUES TO WORK WELL, STATES PAIN IS CONTROLLED LONG SHE TAKES HER MEDS . GASTROENTEROLOGY: ANY NEW CHANGE IN BOWEL CONTROL? NO . GENITOURINARY: ANY NEW CHANGE IN BLADDER CONTROL? NO . IS THERE A CHANCE YOU COULD BE ? NO . HEMATOLOGY/LYMPH: DO YOU TAKE ANY BLOOD THINNERS? (FOR EXAMPLE- COUMADIN, PLAVIX, AGGRENOX, PLATEL, PRADAXA, OR XARELTO) NO . WHEN WAS YOUR LAST DOSE? DATE: TIME: . NEUROLOGY: HAVE YOU FALLEN IN THE PAST 12 MONTHS? NO . ANY NEW EXTREMITY NUMBNESS OR WEAKNESS? NO . CARDIOLOGY: DO YOU HAVE A PACEMAKER OR DEFIBRILLATOR? NO . RESPIRATORY: HAVE YOU BEEN SICK IN THE PAST WEEK? NO . FEVER NO . FLU LIKE SYMPTOMS? NO . COUGH NO . INTEGUMENTARY: DO YOU HAVE ANY RASHES OR OPEN SORES? NO . ALLERGIC/IMMUNO: ARE YOU ALLERGIC TO IV DYE? NO . ANY NEW ALLERGIES? NO . PSYCHIATRIC: DO YOU HAVE THOUGHTS OF HURTING YOURSELF OR SOMEONE ELSE? NO . ARE YOU ABUSED, NEGLECTED, OR IN AN UNSAFE ENVIRONMENT? NO . ENDOCRINOLOGY: ARE YOU DIABETIC? NO . OTHER: DO YOU NEED ANY PRESCRIPTIONS? NO . IF YES, PLEASE LIST: ____ . ANY NEW PROBLEMS WITH YOUR MEDICATIONS? NO . WHEN DID YOU LAST EAT? ____ . WHEN DID YOU LAST DRINK? ____ . WHAT DID YOU LAST DRINK? ____ . NAME OF PERSON DRIVING YOU HOME? ____ . DO YOU HAVE ANY OTHER QUESTIONS OR CONCERNS NO . VITAL SIGNS WT 207.2 LBS, HT 66", BMI 33.44 INDEX, BP 140/85 MM HG, HR 74 /MIN, RR 18 /MIN, TEMP 96.6 F, OXYGEN SAT % 99%, SAFE IN ENV? (Y/N) YES, NA INITIALS AW 1037, REVIEWED BY: JUDY. EXAMINATION GENERAL EXAMINATION: GENERALAWAKE,ALERT ,PLEAASANT . PSYCHAFFECT NORMAL . LUNGS:LUNG VARGAS ARE CLEAR TO AUSCULTATION BILATERALLY. GOOD MOVEMENT OF AIR . HEART:S1, S2 IN A REGULAR RATE AND RHYTHM. NO SIGNIFICANT MURMURS, RUBS OR GALLOPS NOTED . ASSESSMENTS INTERVERTEBRAL DISC DISORDER WITH RADICULOPATHY OF LUMBAR REGION - M51.16 (PRIMARY) TREATMENT INTERVERTEBRAL DISC DISORDER WITH RADICULOPATHY OF LUMBAR REGION CONTINUE LYRICA CAPSULE, 200 MG, 1, ORALLY, Q8H TID MDD3 CONTINUE TRAMADOL HCL TABLET, 50 MG, 2 TAB, ORALLY, Q6-8H PRN MDD6 NOTES: ISTOP REGISTRY REVIEWED AND DEMONSTRATES COMPLLIANCE. BRINGS IN MEDICATIONS WHICH IS APPROPRIATE FOR WHAT WAS DISPENSED. RECENT URINE TOXICOLOGY REVIEWED. NO UNAUTHORIZED MEDICATIONS. NO ILLICIT SUBSTANCES AND PRESCRIBED MEDICATIONS WERE PRESENT. , RISKS AND BENEFITS OF NARCOTIC/OPIOD MEDICATIONS WERE REVIEWED WITH PATIENT - THIS INCLUDES BUT IS NOT LIMITED TO RISK OF DEPENDANCE/DEVELOPMENT OF ADDICTION, MOOD DISTURBANCE AND DEPRESSION, OSTEOPOROSIS, HORMONAL AND LABIDAL CHANGES, RESPIRATORY DEPRESSION AND . PATIENT IS ADVISED NOT TO DRIVE OR DRINK ALCOHOL WHILE ON THESE MEDICATIONS. PROCEDURE CODES FA211 ESTABILISHED PATIENT [facility] CHARGE DISPOSITION & COMMUNICATION FOLLOW UP 2 MONTHS ELECTRONICALLY SIGNED BY ANDREW HARRIS ON 01/30/2019 AT 02:32 PM EDT DISCLAIMER : THIS IS A VISIT SUMMARY EXTRACTED FROM THE [employer] CHART. IT IS NOT A COPY OF THE [employer] PROGRESS NOTE. [facility]
== END ==
LOC: M PAIN 10:00
PROVIDERS: ATTEND Nurse Practitioner Family
DX: M51.16 Intervertebral disc disorders with radiculopathy, lumbar region (principal); Z86.59 Personal history of other mental and behavioral disorders; M06.9 Rheumatoid arthritis, unspecified; M79.7 Fibromyalgia; F17.210 Nicotine dependence, cigarettes, uncomplicated; Z88.6 Allergy status to analgesic agent; Z79.891 Long term (current) use of opiate analgesic; Z79.899 Other long term (current) drug therapy

== ENCOUNTER → 2019-02-27 | Outpatient (CLI) | payer OTHER ==
--- NOTE | 2019-03-18 02:19 | ECWPNPC ---
PATIENT NAME: ADELFO MACIAS : 1980 GENDER: FEMALE VISIT DATE: 02/27/2019 DISCHARGE DATE: 02/27/19 1022 VISIT LOCKED DATE TIME: PHYSICIAN: ANGEL LUIS SMITH RESOURCE: ANGEL LUIS SMITH REASON FOR APPOINTMENT 1. INCREASED PAIN PER ANGEL LUIS HISTORY OF PRESENT ILLNESS HISTORY OF PRESENT ILLNESS: HERE FOR F/U AFTER SHE CALED 2 WEEKS AGO DUE TO SEVERE FLARE UP IN PAIN AFTER FALLING OUT OF BED.SHE IS DOING BETTER.WE GAVE HER A SHORT COURSE OF VALIUM AND HYDROCODONE.SHE IS NOW USING TRAMADOL AND HER USUAL PAIN MEDICATIONS .PAIN IS LOCATED ACROSS LOW BACK AND DOWN RIGHT THIGH.SHE DOESNT APPEAR UNCOMFORTABLE BUT IS RATING PAIN VAS 10/10. PAIN THE PATIENT DESCRIBES THE PAIN... FALL RISK SCREENING: SCREENING :NO FALLS REPORTED IN THE LAST YEAR CURRENT MEDICATIONS TAKING NORTRIPTYLINE HCL 25 MG CAPSULE 1 CAPSULE ORALLY BEFORE BEDTIME TAKING BACLOFEN 20 MG TABLET 1 TABLET WITH FOOD OR MILK ORALLY EVERY 8 HRS NEEDED TAKING LYRICA 200 MG CAPSULE 1 ORALLY Q8H TID MDD3 TAKING TRAMADOL HCL 50 MG TABLET 2 TAB ORALLY Q6-8H PRN MDD6 TAKING VALIUM 5 MG TABLET 1 TABLET NEEDED ORALLY 1 PILL DAILY PRN MDD1, NOTES: PRN ONLY TAKING NORCO 10-325 MG TABLET 1 TABLET NEEDED ORALLY Q12H PRN MDD2 NOT-TAKING ZOFRAN 4 MG TABLET 2 TABLETS ORALLY ONCE A DAY NOT-TAKING GABAPENTIN 600 MG TABLET 1 TABLET ORALLY THREE TIMES A DAY MEDICATION LIST REVIEWED AND RECONCILED WITH THE PATIENT PAST MEDICAL HISTORY ANEMIA ANXIETY D/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 NERVE CONDUCTION DONE AT OR [facility] LOST FEELING IN RIGHT HAND PINCHED NERVE RIGHT ELBOW MYALGIA FIBROMYALGIA INTERVERTEBRAL DISC DISORDER WITH RADICULOPATHY OF LUMBAR REGION ALLERGIES ENVIRONMENTAL: SINUS CONGESTION,ITCHY EYES - ALLERGY NSAIDS: INTERNAL BLEED - SIDE EFFECTS ASPIRIN: VOMIT - SIDE EFFECTS SURGICAL HISTORY LAPAROSCOPY COLONOSCOPY-WNL 2013 CHOLECYSTECTOMY 2012 TUBALIGATION APPENDECTOMY RIGHT SHOULDER REPAIR FAMILY HISTORY FATHER: ALIVE, DOESN'T KNOW HISTORY OF FATHER MOTHER: ALIVE 56 YRS, LUPUS, DIAGNOSED WITH DIABETES, OTHER SPECIFIED CONDITIONS INFLUENCING HEALTH STATUS 1 SON(S) - HEALTHY. SOCIAL HISTORY GENERAL: TOBACCO USE ARE YOU A:CURRENT SMOKER ARE YOU INTERESTED IN QUITTING?READY TO QUIT STATES SHE IS TRYING TO CUT BACK AND QUIT. HAS PATCHES GOING TO QUIT PREVIOUS QUIT ATTEMPTS?NO. COUNSELED THE PATIENT ON TOBACCO USE, CESSATION [id number]/10/2019 HOW MANY CIGARETTES A DAY DO YOU SMOKE?5 OR LESS HOW SOON AFTER YOU WAKE UP DO YOU SMOKE YOUR FIRST CIGARETTE?WITHIN 5 MIN HOW OFTEN DO YOU SMOKE CIGARETTES?EVERY DAY PATIENT COUNSELED ON THE DANGERS OF TOBACCO USE AND URGED TO QUIT:02/27/2019 PAIN CLINIC PFS, CLERGY, PUBLIC HEALTH REFERRALS PFS REFERRAL NEEDED?NO CLERGY REFERRAL NEEDED?NO PUBLIC HEALTH REFERRAL NEEDED?NO WAS THE PROVIDER NOTIFIED OF ANY PERTINENT INFO? N/A HAS THE PATIENT BEEN EDUCATED REGARDING HIS/HER PLAN OF CARE?YES HAS THE PATIENT BEEN EDUCATED REGARDING PAIN, THE RISK FOR PAIN, THE IMPORTANCE OF EFFECTIVE PAIN MANAGEMENT, AND THE PAIN ASSESSMENT PROCESS?YES LATEX QUESTIONNAIRE LATEX ALLERGY : HAVE YOU EVER DEVELOPED ANY TYPE OF REACTION AFTER HANDLING LATEX PRODUCTS SUCH RUBBER GLOVES, CONDOMS, DIAPHRAGMS, BALLOONS, SOCKS, OR UNDERWEAR?NO LATEX ALLERGY : HAVE YOU EVER DEVELOPED ANY TYPE OF REACTION DURING OR AFTER DENTAL APPOINTMENT, VAGINAL/RECTAL EXAMINATION, SURGICAL PROCEDURE, OR ANY OTHER EXPOSURE?NO DATE ASKED : 11/14/2018 LATEX RISK : HAVE YOU EVER HAD ANY DIFFICULTY BREATHING OR HIVES AFTER EATING OR HANDLING ANY FRUITS, OR VEGETABLES; SUCH KIWI, BANANAS, STONE FRUITS, OR CHESTNUTSNO LATEX RISK : DO YOU HAVE A PREVIOUS PERSONAL HISTORY OF MORE THAN NINE SURGERIES, SPINA BIFIDA, OR REPEATED CATHERIZATIONS? NO LATEX RISK : ARE YOU FREQUENTLY EXPOSED TO LATEX PRODUCTS IN YOUR OCCUPATION?NO ADVANCE DIRECTIVE ADVANCE DIRECTIVE DISCUSSED WITH PATIENT:YES 02/27/19 STATES SHE HAS HCP - ALEXA GILBERTO (SISTER) [phone] AD EDUCATION LEVEL OF EDUCATION:HIGH S[employer]OL [id number] OTHER LANGUAGE LANGUAGES SPOKEN:YAKUT DOMESTIC VIOLENCE DO YOU FEEL SAFE IN YOUR ENVIRONMENT?YES ALCOHOL SCREENING DID YOU HAVE A DRINK CONTAINING ALCOHOL IN THE PAST YEAR?NO POINTS0 INTERPRETATIONNEGATIVE RECREATIONAL DRUG USE DRUG USE?NO LEARNING BARRIERS / SPECIAL NEEDS BARRIERS TO LEARNING?NO HEARING IMPAIRED?NO VISION IMPAIRED?NO COGNITIVELY IMPAIRED?NO READINESS TO LEARN?YES LEARNING PREFERENCES?YES :HANDOUTS LEARNING CAPABILITIES PRESENT?YES EMOTIONAL BARRIERS?NO SPECIAL DEVICES?NO RESEARCH QUALITY ASSURANCE SPECIALIST NEEDED?NO REVIEWED WITH PATIENT 02/15/18 1134 JSREVIEWED WITH PT 03/22/18 6968 BVREVIEWED WITH PATIENT 08/07/18 1406 JS REVIEWED WITH PATIENT 01/01/19 1225 LAS REVIEWED WITH PATIENT 01/30/19 1034 NLJ. HOSPITALIZATION/MAJOR DIAGNOSTIC PROCEDURE SURGERIES ETHROIDITIS REVIEW OF SYSTEMS REVIEWED BY: PROVIDER: ANGEL LUIS MORALES . CONSTITUTIONAL: ANY CHANGE IN YOUR MEDICAL CONDITION? NO . CHILLS NO . FEVER NO . INFECTION: DO YOU HAVE NEW INFECTIONS? NO . DO YOU HAVE HISTORY OF MRSA? NO . MUSCULOSKELETAL: ANY NEW PATTERNS OF PAIN OR NUMBNESS? YES, UNABLE TO FEEL HER RIGHT INDEX AND MIDDLEFINGER ALSO SHE CAN'T FEEL THE TOP PART OF RIGHT LEG. THIS ALL STARTED WHEN SHE ALMOST FELL OUT OF BED THE END OF JAN. . GASTROENTEROLOGY: ANY NEW CHANGE IN BOWEL CONTROL? NO . GENITOURINARY: ANY NEW CHANGE IN BLADDER CONTROL? NO . IS THERE A CHANCE YOU COULD BE ? NO . HEMATOLOGY/LYMPH: DO YOU TAKE ANY BLOOD THINNERS? (FOR EXAMPLE- COUMADIN, PLAVIX, AGGRENOX, PLATEL, PRADAXA, OR XARELTO) NO . WHEN WAS YOUR LAST DOSE? DATE: TIME: . NEUROLOGY: HAVE YOU FALLEN IN THE PAST 12 MONTHS? YES, ALMOST FELL OUT OF BED THE END OF JAN.-"YANKED HER BACK" NOT EVALUATED AFTER . ANY NEW EXTREMITY NUMBNESS OR WEAKNESS? YES,SEE ABOVE . CARDIOLOGY: DO YOU HAVE A PACEMAKER OR DEFIBRILLATOR? NO . RESPIRATORY: HAVE YOU BEEN SICK IN THE PAST WEEK? NO . FEVER NO . FLU LIKE SYMPTOMS? NO . COUGH NO . INTEGUMENTARY: DO YOU HAVE ANY RASHES OR OPEN SORES? NO . ALLERGIC/IMMUNO: ARE YOU ALLERGIC TO IV DYE? NO . ANY NEW ALLERGIES? NO . PSYCHIATRIC: DO YOU HAVE THOUGHTS OF HURTING YOURSELF OR SOMEONE ELSE? NO . ARE YOU ABUSED, NEGLECTED, OR IN AN UNSAFE ENVIRONMENT? NO . ENDOCRINOLOGY: ARE YOU DIABETIC? NO . OTHER: DO YOU NEED ANY PRESCRIPTIONS? YES . IF YES, PLEASE LIST: TRAMADOL NEXT MONTH . ANY NEW PROBLEMS WITH YOUR MEDICATIONS? NO . WHEN DID YOU LAST EAT? ____ . WHEN DID YOU LAST DRINK? ____ . WHAT DID YOU LAST DRINK? ____ . NAME OF PERSON DRIVING YOU HOME? ____ . DO YOU HAVE ANY OTHER QUESTIONS OR CONCERNS YES." THERE IS SOMETHING GOING ON WITH MY RIGHT ARM, FINGERS AND RIGHT LEG" . VITAL SIGNS WT 207.4 LBS, HT 66", BMI 33.47 INDEX, BP 124/87 MM HG, HR 93 /MIN, RR 18 /MIN, TEMP 96.9 F, OXYGEN SAT % 99%, NA INITIALS AW 0944. EXAMINATION GENERAL EXAMINATION: GENERALAWAKE,ALERT ,PLEAASANT . PSYCHAFFECT NORMAL . LUNGS:LUNG VARGAS ARE CLEAR TO AUSCULTATION BILATERALLY. GOOD MOVEMENT OF AIR . HEART:S1, S2 IN A REGULAR RATE AND RHYTHM. NO SIGNIFICANT MURMURS, RUBS OR GALLOPS NOTED . ASSESSMENTS INTERVERTEBRAL DISC DISORDER WITH RADICULOPATHY OF LUMBAR REGION - M51.16 (PRIMARY) TREATMENT INTERVERTEBRAL DISC DISORDER WITH RADICULOPATHY OF LUMBAR REGION REFILL TRAMADOL HCL TABLET, 50 MG, 2 TAB, ORALLY, Q6-8H PRN MDD6, 30 DAYS, 180, REFILLS 2 NOTES: ADVISED TO WALK 15 MIN EVERY OTHER DAY ON FLAT SURFACE AND TO DO THIS CONSISTENTLY TO STRENGTHEN LOW BACK MUSCLES AND TO PREVENT FUTURE LOW BACK PAIN FLARE UPS., ISTOP REGISTRY REVIEWED AND DEMONSTRATES COMPLLIANCE. BRINGS IN MEDICATIONS WHICH IS APPROPRIATE FOR WHAT WAS DISPENSED. RECENT URINE TOXICOLOGY REVIEWED. NO UNAUTHORIZED MEDICATIONS. NO ILLICIT SUBSTANCES AND PRESCRIBED MEDICATIONS WERE PRESENT. PROCEDURE CODES FA211 ESTABILISHED PATIENT [facility] FACILITY CHARGE DISPOSITION & COMMUNICATION FOLLOW UP 2 MONTHS ELECTRONICALLY SIGNED BY ANDREW HARRIS ON 03/17/2019 AT 01:31 PM EDT DISCLAIMER : THIS IS A VISIT SUMMARY EXTRACTED FROM THE [employer] CHART. IT IS NOT A COPY OF THE [employer] PROGRESS NOTE. LASHAY
== END ==
LOC: M PAIN 09:15
PROVIDERS: ATTEND Nurse Practitioner Family
DX: M51.16 Intervertebral disc disorders with radiculopathy, lumbar region (principal); Z86.59 Personal history of other mental and behavioral disorders; M06.9 Rheumatoid arthritis, unspecified; G62.9 Polyneuropathy, unspecified; M79.18 Myalgia, other site; M79.7 Fibromyalgia; F17.210 Nicotine dependence, cigarettes, uncomplicated; Z88.6 Allergy status to analgesic agent; Z79.891 Long term (current) use of opiate analgesic; Z79.899 Other long term (current) drug therapy

== ENCOUNTER → 2019-03-25 | Outpatient (REF) | payer OTHER ==
[2019-03-25 11:51] LABS: BASO % 0.4 % (0.0-1.0); EOS # 0.1 10^3/uL (0.0-0.5); EOS % 1.6 % (0.0-3.0); HEMOGLOBIN 13.4 g/dl (12.0-15.5); LYMPH # 2.1 10^3/uL (1.5-5.0); LYMPH % 25.2 % (24.0-44.0); MEAN CORPUSCULAR HEMOGLOBIN 32.9 pg (27.0-33.0); MEAN CORPUSCULAR HGB CONC 34.4 g/dl (32.0-36.5); MEAN CORPUSCULAR VOLUME 95.8 fl (80.0-96.0); MONO # 0.5 10^3/uL (0.0-0.8); MONO % 5.9 % (0.0-5.0); NEUTROPHILS # 5.4 10^3/uL (1.5-8.5); NEUTROPHILS % 66.5 % (36.0-66.0); PLATELET COUNT, AUTOMATED 302 10^3/uL (150-450); RED BLOOD COUNT 4.07 10^6/uL (4.00-5.40); WHITE BLOOD COUNT 8.1 10^3/uL (4.0-10.0)
[2019-03-25 12:03] LABS: ALBUMIN 3.5 GM/DL (3.2-5.2); ALT/SGPT 23 U/L (12-78); BILIRUBIN,TOTAL 0.5 MG/DL (0.2-1.0); BLOOD UREA NITROGEN 7 MG/DL (7-18); CALCIUM LEVEL 8.5 MG/DL (8.5-10.1); CARBON DIOXIDE LEVEL 28 MEQ/L (21-32); CHLORIDE LEVEL 107 MEQ/L (98-107); CHOLESTEROL LEVEL 181 MG/DL (<200); CHOLESTEROL RISK RATIO 5.656 (<5); CREATININE FOR GFR 0.72 MG/DL (0.55-1.30); FERRITIN 25 NG/ML (8-252); GLOMERULAR FILTRATION RATE > 60.0 (>58); GLUCOSE, FASTING 85 MG/DL (70-100); HDL CHOLESTEROL 32 MG/DL (>40); IRON (FE) 37 UG/DL (50-170); LDL CHOLESTEROL 118 MG/DL (<100); NON-HDL-C 149 MG/DL; POTASSIUM SERUM 3.7 MEQ/L (3.5-5.1); SODIUM LEVEL 141 MEQ/L (136-145); TOTAL PROTEIN 6.8 GM/DL (6.4-8.2); TRIGLYCERIDES LEVEL 157 MG/DL (<150)
[2019-03-25 12:04] LABS: TOTAL 25(OH) VITAMIN D 14.2 NG/ML (30.0-100.0)
[2019-03-25 12:21] LABS: HEMOGLOBIN A1c 5.1 %
== END ==
LOC: M LAB REF 11:31
PROVIDERS: ATTEND Nurse Practitioner Family
DX: Z00.00 Encounter for general adult medical examination without abnormal findings (principal)

== ENCOUNTER → 2019-04-29 | Outpatient (CLI) | payer OTHER ==
--- NOTE | 2019-05-01 04:04 | ECWPNPC ---
PATIENT NAME: ADELFO MACIAS : 1980 GENDER: FEMALE VISIT DATE: 04/29/2019 DISCHARGE DATE: 04/29/19 1059 VISIT LOCKED DATE TIME: PHYSICIAN: ANGEL LUIS SMITH RESOURCE: ANGEL LUIS SMITH REASON FOR APPOINTMENT 1. [facility]-LOW BACK HISTORY OF PRESENT ILLNESS HISTORY OF PRESENT ILLNESS: HERE FOR F/U OF CHRONIC LOW BACK PAIN AND LEG PAIN.HAVING A SEVERE FLARE UP WITH NEUROPATHIC PAIN.DESCRIBES SEVERE EPISODES OF BURNING AND COLDNESS IN ARMS,HANDS AND FEET.FOLLOWS WITH NEUROLOGY FOR DIAGNOSIS OF NEUROPATHY.ALSO REPORTING AN INCREASE IN GENERALIZED BACK PAIN.SHE STATES SHE HASNT BEEN SLEEPING DUE TO UNCONTROLLED LBP. PAIN THE PATIENT DESCRIBES THE PAIN... FALL RISK SCREENING: SCREENING :NO FALLS REPORTED IN THE LAST YEAR CURRENT MEDICATIONS TAKING ZOFRAN 4 MG TABLET 2 TABLETS ORALLY ONCE A DAY TAKING NORTRIPTYLINE HCL 25 MG CAPSULE 1 CAPSULE ORALLY BEFORE BEDTIME TAKING BACLOFEN 20 MG TABLET 1 TABLET WITH FOOD OR MILK ORALLY EVERY 8 HRS NEEDED TAKING LYRICA 200 MG CAPSULE 1 ORALLY Q8H TID MDD3 TAKING TRAMADOL HCL 50 MG TABLET 2 TAB ORALLY Q6-8H PRN MDD6 DISCONTINUED GABAPENTIN 600 MG TABLET 1 TABLET ORALLY THREE TIMES A DAY DISCONTINUED VALIUM 5 MG TABLET 1 TABLET NEEDED ORALLY 1 PILL DAILY PRN MDD1, NOTES: PRN ONLY DISCONTINUED NORCO 10-325 MG TABLET 1 TABLET NEEDED ORALLY Q12H PRN MDD2 MEDICATION LIST REVIEWED AND RECONCILED WITH THE PATIENT PAST MEDICAL HISTORY ANEMIA ANXIETY D/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 NERVE CONDUCTION DONE AT [facility] LOST FEELING IN RIGHT HAND PINCHED NERVE RIGHT ELBOW MYALGIA FIBROMYALGIA INTERVERTEBRAL DISC DISORDER WITH RADICULOPATHY OF LUMBAR REGION ALLERGIES ENVIRONMENTAL: SINUS CONGESTION,ITCHY EYES - ALLERGY NSAIDS: INTERNAL BLEED - SIDE EFFECTS ASPIRIN: VOMIT - SIDE EFFECTS SURGICAL HISTORY LAPAROSCOPY COLONOSCOPY-WNL 2013 CHOLECYSTECTOMY 2012 TUBALIGATION APPENDECTOMY RIGHT SHOULDER REPAIR FAMILY HISTORY FATHER: ALIVE, DOESN'T KNOW HISTORY OF FATHER MOTHER: ALIVE 56 YRS, LUPUS, DIAGNOSED WITH DIABETES, OTHER SPECIFIED CONDITIONS INFLUENCING HEALTH STATUS 1 SON(S) - HEALTHY. MOTHER HAS BRIDGET. SOCIAL HISTORY GENERAL: TOBACCO USE ARE YOU A:CURRENT SMOKER ARE YOU INTERESTED IN QUITTING?READY TO QUIT STATES SHE IS TRYING TO CUT BACK AND QUIT. HAS PATCHES GOING TO QUIT PREVIOUS QUIT ATTEMPTS?NO. COUNSELED THE PATIENT ON TOBACCO USE, CESSATION [id number]/10/2019 HOW MANY CIGARETTES A DAY DO YOU SMOKE?5 OR LESS HOW SOON AFTER YOU WAKE UP DO YOU SMOKE YOUR FIRST CIGARETTE?WITHIN 5 MIN HOW OFTEN DO YOU SMOKE CIGARETTES?EVERY DAY PATIENT COUNSELED ON THE DANGERS OF TOBACCO USE AND URGED TO QUIT:04/29/2019 OTHERS AT HOME: CHILD. EDUCATION LEVEL OF EDUCATION:HIGH SCHOOL DIET: REGULAR. LANGUAGE LANGUAGES SPOKEN:ROMANIAN DOMESTIC VIOLENCE DO YOU FEEL SAFE IN YOUR ENVIRONMENT?YES RECREATIONAL DRUG USE DRUG USE?NO EXERCISE: WALKS. LEARNING BARRIERS / SPECIAL NEEDS BARRIERS TO LEARNING?NO HEARING IMPAIRED?NO VISION IMPAIRED?NO COGNITIVELY IMPAIRED?NO READINESS TO LEARN?YES LEARNING PREFERENCES?YES :HANDOUTS LEARNING CAPABILITIES PRESENT?YES EMOTIONAL BARRIERS?NO SPECIAL DEVICES?NO DIRECTOR FIXED INCOME NEEDED?NO PAIN CLINIC PFS, CLERGY, PUBLIC HEALTH REFERRALS PFS REFERRAL NEEDED?NO CLERGY REFERRAL NEEDED?NO PUBLIC HEALTH REFERRAL NEEDED?NO WAS THE PROVIDER NOTIFIED OF ANY PERTINENT INFO? N/A HAS THE PATIENT BEEN EDUCATED REGARDING HIS/HER PLAN OF CARE?YES HAS THE PATIENT BEEN EDUCATED REGARDING PAIN, THE RISK FOR PAIN, THE IMPORTANCE OF EFFECTIVE PAIN MANAGEMENT, AND THE PAIN ASSESSMENT PROCESS?YES LATEX QUESTIONNAIRE LATEX ALLERGY : HAVE YOU EVER DEVELOPED ANY TYPE OF REACTION AFTER HANDLING LATEX PRODUCTS SUCH RUBBER GLOVES, CONDOMS, DIAPHRAGMS, BALLOONS, SOCKS, OR UNDERWEAR?NO LATEX ALLERGY : HAVE YOU EVER DEVELOPED ANY TYPE OF REACTION DURING OR AFTER DENTAL APPOINTMENT, VAGINAL/RECTAL EXAMINATION, SURGICAL PROCEDURE, OR ANY OTHER EXPOSURE?NO LATEX RISK : HAVE YOU EVER HAD ANY DIFFICULTY BREATHING OR HIVES AFTER EATING OR HANDLING ANY FRUITS, OR VEGETABLES; SUCH KIWI, BANANAS, STONE FRUITS, OR CHESTNUTSNO LATEX RISK : DO YOU HAVE A PREVIOUS PERSONAL HISTORY OF MORE THAN NINE SURGERIES, SPINA BIFIDA, OR REPEATED CATHERIZATIONS? NO LATEX RISK : ARE YOU FREQUENTLY EXPOSED TO LATEX PRODUCTS IN YOUR OCCUPATION?NO DATE ASKED : 04/29/2019 ADVANCE DIRECTIVE ADVANCE DIRECTIVE DISCUSSED WITH PATIENT:YES 02/27/19 STATES SHE HAS HCP - ALEXA GILBERTO (SISTER) [phone] AD YAZIDI [id number] OTHER MARITAL STATUS: SINGLE. ALCOHOL SCREENING DID YOU HAVE A DRINK CONTAINING ALCOHOL IN THE PAST YEAR?NO POINTS0 INTERPRETATIONNEGATIVE OCCUPATION: DISABLED. REVIEWED WITH PATIENT 02/15/18 1134 JSREVIEWED WITH PT 03/22/18 0938 BVREVIEWED WITH PATIENT 08/07/18 1406 JS REVIEWED WITH PATIENT 01/01/19 1225 LAS REVIEWED WITH PATIENT 01/30/19 1034 NLJ. HOSPITALIZATION/MAJOR DIAGNOSTIC PROCEDURE SURGERIES ETHROIDITIS REVIEW OF SYSTEMS REVIEWED BY: PROVIDER: ANGEL LUIS MORALES . CONSTITUTIONAL: ANY CHANGE IN YOUR MEDICAL CONDITION? NO . CHILLS NO . FEVER NO . INFECTION: DO YOU HAVE NEW INFECTIONS? NO . DO YOU HAVE HISTORY OF MRSA? NO . MUSCULOSKELETAL: ANY NEW PATTERNS OF PAIN OR NUMBNESS? YES . GASTROENTEROLOGY: ANY NEW CHANGE IN BOWEL CONTROL? NO . GENITOURINARY: ANY NEW CHANGE IN BLADDER CONTROL? NO . IS THERE A CHANCE YOU COULD BE ? NO . HEMATOLOGY/LYMPH: DO YOU TAKE ANY BLOOD THINNERS? (FOR EXAMPLE- COUMADIN, PLAVIX, AGGRENOX, PLATEL, PRADAXA, OR XARELTO) NO . WHEN WAS YOUR LAST DOSE? DATE: TIME: . NEUROLOGY: HAVE YOU FALLEN IN THE PAST 12 MONTHS? NO . ANY NEW EXTREMITY NUMBNESS OR WEAKNESS? YES . CARDIOLOGY: DO YOU HAVE A PACEMAKER OR DEFIBRILLATOR? NO . RESPIRATORY: HAVE YOU BEEN SICK IN THE PAST WEEK? NO . FEVER NO . FLU LIKE SYMPTOMS? NO . COUGH NO . INTEGUMENTARY: DO YOU HAVE ANY RASHES OR OPEN SORES? NO . ALLERGIC/IMMUNO: ARE YOU ALLERGIC TO IV DYE? NO . ANY NEW ALLERGIES? NO . PSYCHIATRIC: DO YOU HAVE THOUGHTS OF HURTING YOURSELF OR SOMEONE ELSE? NO . ARE YOU ABUSED, NEGLECTED, OR IN AN UNSAFE ENVIRONMENT? NO . ENDOCRINOLOGY: ARE YOU DIABETIC? NO . OTHER: DO YOU NEED ANY PRESCRIPTIONS? NO . IF YES, PLEASE LIST: ____ . ANY NEW PROBLEMS WITH YOUR MEDICATIONS? NO . WHEN DID YOU LAST EAT? ____ . WHEN DID YOU LAST DRINK? ____ . WHAT DID YOU LAST DRINK? ____ . NAME OF PERSON DRIVING YOU HOME? ____ . DO YOU HAVE ANY OTHER QUESTIONS OR CONCERNS YES, MY LEGS ARE JELLO,I CAN'T WALK FROM THE PAIN,NUMBNESS,BURNING. MY BACK IS OUT OF PLACE AND THE PAIN WAKES ME UP . VITAL SIGNS WT 211.4 LBS, HT 66", BMI 34.12 INDEX, BP 168/98 MM HG, HR 98 /MIN, RR 18 /MIN, TEMP 97.6 F, OXYGEN SAT % 100%, SAFE IN ENV? (Y/N) YES, NA INITIALS AW 0948, REVIEWED BY: RHODA. EXAMINATION GENERAL EXAMINATION: GENERAL AWAKE,ALERT ,CONSTRICTED,DEPRESSED. PSYCH AFFECT NORMAL . LUNGS: LUNG VARGAS ARE CLEAR TO AUSCULTATION BILATERALLY. GOOD MOVEMENT OF AIR . HEART: S1, S2 IN A REGULAR RATE AND RHYTHM. NO SIGNIFICANT MURMURS, RUBS OR GALLOPS NOTED . FOR BILAT. SIJ PALPATION: + FOR PAIN OVER L/S SPINE. + FOR PAIN OVER L/S PARASPINALS. NEUROLOGIC EXAM: NORMAL SENSATION LIGHT TOUCH BILAT. LOWER EXTREMITIES. ASSESSMENTS NEUROPATHY - G62.9 (PRIMARY) PROTRUSION OF LUMBAR INTERVERTEBRAL DISC - M51.26 TREATMENT NEUROPATHY REFILL LYRICA CAPSULE, 200 MG, 1, ORALLY, Q8H TID MDD3, 30 DAYS, 90, REFILLS 5 REFILL TRAMADOL HCL TABLET, 50 MG, 2 TAB, ORALLY, Q6-8H PRN MDD6, 30 DAYS, 180, REFILLS 2 START GABAPENTIN CAPSULE, 300 MG, 1 CAPSULE, ORALLY, BID, 30 DAY(S), 60 CAPSULE, REFILLS 2 NOTES: ISTOP REGISTRY REVIEWED AND DEMONSTRATES COMPLLIANCE. , RISKS OF NARCOTIC/OPIOD MEDICATIONS INCLUDES BUT IS NOT LIMITED TO RISK OF DEPENDANCE/DEVELOPMENT OF ADDICTION, MOOD DISTURBANCE AND DEPRESSION, OSTEOPOROSIS, HORMONAL AND LABIDAL CHANGES, RESPIRATORY DEPRESSION AND . PATIENT IS ADVISED NOT TO DRIVE OR DRINK ALCOHOL WHILE ON THESE MEDICATIONSDUE TO PATIENTS COMPLAINTS OF SEVER NEUROPATHY FLARE UP AND INSOMNIA I RECOMMEND A SHORT COARSE OF GABAPENTIN 300MG AM AND PM X 30 DAYS TO BE TAKEN ALONG WITH HER OTHER DAILY MEDICATION TO INCLUDE LYRICA 200MG TID.JENNI ENCOURAGED HER TO DISCUSS THIS WITH MOHAN AT F/U IN JUNE.TOLD I WOULD BE RELUCTANT TO USE PERIODIC VALIUM AND HYDROCODONE TO TREAT ACUTE FLARE UPS IN LOW BACK PAIN WE HAVE DONE IN PAST AND WOULD MORE THAN LIKELY ADVISE ER OR URGENT CARE EVALUATION.JENNI RECOMMENDED PSYCHIATRIC EVAUATION FOR INCREASED ANXIETY ASSOCIATED WITH ELEVATION IN STRESS LEVELS.L4/5 LESI. PROCEDURE CODES FA211 ESTABILISHED PATIENT [facility] CHARGE DISPOSITION & COMMUNICATION FOLLOW UP POST (REASON: L4/5 LESI) ELECTRONICALLY SIGNED BY ANDREW HARRIS ON 04/30/2019 AT 09:55 AM EST DISCLAIMER : THIS IS A VISIT SUMMARY EXTRACTED FROM THE [employer] CHART. IT IS NOT A COPY OF THE [employer] PROGRESS NOTE. LASHAY
== END ==
LOC: M PAIN 09:30
PROVIDERS: ATTEND Nurse Practitioner Family
DX: G62.9 Polyneuropathy, unspecified (principal); M51.26 Other intervertebral disc displacement, lumbar region; G89.29 Other chronic pain; Z86.59 Personal history of other mental and behavioral disorders; M79.7 Fibromyalgia; F17.210 Nicotine dependence, cigarettes, uncomplicated; Z88.6 Allergy status to analgesic agent; Z79.891 Long term (current) use of opiate analgesic; Z79.899 Other long term (current) drug therapy

== ENCOUNTER → 2019-09-04 | Outpatient (CLI) | payer OTHER ==
--- NOTE | 2019-09-08 08:21 | ECWPNPC ---
PATIENT NAME: ADELFO MACIAS : 1980 GENDER: FEMALE VISIT DATE: 09/04/2019 DISCHARGE DATE: 09/04/19 1104 VISIT LOCKED DATE TIME: PHYSICIAN: ANGEL LUIS SMITH RESOURCE: ANGEL LUIS SMITH REASON FOR APPOINTMENT 1. [facility] [phone] HISTORY OF PRESENT ILLNESS HISTORY OF PRESENT ILLNESS: PATIENT IS AGREEABLE TO ZOOM TELEMED VISIT. CONTINUES WITH COMPLAINTS OF LOW BACK PAIN WITH RADIATION INTO LEFT LEG. RATING PAIN LEVEL A 8/10 VAS. WAS SCHEDULED FOR LESI WITH DR. ROJAS, BUT THOSE HAVE HAD TO BE CANCELED DUE TO COVID 19. SHE IS SCHEDULED FOR LESI IN OCTOBER. FINDS CURRENT CHRONIC PAIN MEDICATION SOMEWHAT HELPFUL AT REDUCING PAIN AND KEEPING HER FUNCTIONAL. DENIES ADVERSE SIDE EFFECTS. REPORTS IMPROVEMENT ON GABAPENTIN 300 MG TWICE A DAY FOR BURNING PAIN IN HER LEGS. THAT WAS STARTED 3 MONTHS AGO. PAIN THE PATIENT DESCRIBES THE PAIN... FALL RISK SCREENING: SCREENING :NO FALLS REPORTED IN THE LAST YEAR CURRENT MEDICATIONS TAKING ZOFRAN 4 MG TABLET 2 TABLETS ORALLY ONCE A DAY, NOTES: PRN TAKING NORTRIPTYLINE HCL 25 MG CAPSULE 1 CAPSULE ORALLY BEFORE BEDTIME TAKING BACLOFEN 20 MG TABLET 1 TABLET WITH FOOD OR MILK ORALLY EVERY 8 HRS NEEDED TAKING LYRICA 200 MG CAPSULE 1 ORALLY Q8H TID MDD3 TAKING GABAPENTIN 300 MG CAPSULE 1 CAPSULE ORALLY BID TAKING TRAMADOL HCL 50 MG TABLET 2 TAB ORALLY Q6-8H PRN MDD6 TAKING LIDOCAINE 4 % CREAM 1 APPLICATION NEEDED EXTERNALLY THREE TIMES A DAY MEDICATION LIST REVIEWED AND RECONCILED WITH THE PATIENT PAST MEDICAL HISTORY ANEMIA ANXIETY D/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 NERVE CONDUCTION DONE AT [facility] LOST FEELING IN RIGHT HAND PINCHED NERVE RIGHT ELBOW MYALGIA FIBROMYALGIA INTERVERTEBRAL DISC DISORDER WITH RADICULOPATHY OF LUMBAR REGION LEFT LEG PAIN ALLERGIES ENVIRONMENTAL: SINUS CONGESTION,ITCHY EYES - ALLERGY NSAIDS: INTERNAL BLEED - SIDE EFFECTS ASPIRIN: VOMIT - SIDE EFFECTS SURGICAL HISTORY LAPAROSCOPY COLONOSCOPY-WNL 2013 CHOLECYSTECTOMY 2012 TUBALIGATION APPENDECTOMY RIGHT SHOULDER REPAIR FAMILY HISTORY FATHER: ALIVE, DOESN'T KNOW HISTORY OF FATHER MOTHER: ALIVE 56 YRS, LUPUS, DIAGNOSED WITH DIABETES, OTHER SPECIFIED CONDITIONS INFLUENCING HEALTH STATUS 1 SON(S) - HEALTHY. MOTHER HAS BIRDGET. SOCIAL HISTORY GENERAL: TOBACCO USE ARE YOU A:CURRENT SMOKER ARE YOU INTERESTED IN QUITTING?READY TO QUIT STATES SHE IS TRYING TO CUT BACK AND QUIT. HAS PATCHES GOING TO QUIT PREVIOUS QUIT ATTEMPTS?NO. COUNSELED THE PATIENT ON TOBACCO USE, CESSATION [id number]/16/2020 HOW MANY CIGARETTES A DAY DO YOU SMOKE?5 OR LESS HOW SOON AFTER YOU WAKE UP DO YOU SMOKE YOUR FIRST CIGARETTE?WITHIN 5 MIN HOW OFTEN DO YOU SMOKE CIGARETTES?EVERY DAY PATIENT COUNSELED ON THE DANGERS OF TOBACCO USE AND URGED TO QUIT:09/04/2019 OTHERS AT HOME: CHILD. EDUCATION LEVEL OF EDUCATION:HIGH SCHOOL DIET: REGULAR. LANGUAGE LANGUAGES SPOKEN:[place] DOMESTIC VIOLENCE DO YOU FEEL SAFE IN YOUR ENVIRONMENT?YES NEW PATIENT PAIN DIARY TODAY'S VISITNOTES 09/04/2019 PATIENT DESCRIBES PAIN :HAVE IT ALL THE TIME, THROBBING, SHOOTING FROM 0-10, WHAT LEVEL IS YOUR PAIN TODAY?10 RECREATIONAL DRUG USE DRUG USE?NO EXERCISE: WALKS. LEARNING BARRIERS / SPECIAL NEEDS BARRIERS TO LEARNING?NO HEARING IMPAIRED?NO VISION IMPAIRED?NO COGNITIVELY IMPAIRED?NO READINESS TO LEARN?YES LEARNING PREFERENCES?YES :HANDOUTS LEARNING CAPABILITIES PRESENT?YES EMOTIONAL BARRIERS?NO SPECIAL DEVICES?NO BURNER OPERATOR NEEDED?NO PAIN CLINIC PFS, CLERGY, PUBLIC HEALTH REFERRALS PFS REFERRAL NEEDED?NO CLERGY REFERRAL NEEDED?NO PUBLIC HEALTH REFERRAL NEEDED?NO WAS THE PROVIDER NOTIFIED OF ANY PERTINENT INFO? N/A HAS THE PATIENT BEEN EDUCATED REGARDING HIS/HER PLAN OF CARE?YES HAS THE PATIENT BEEN EDUCATED REGARDING PAIN, THE RISK FOR PAIN, THE IMPORTANCE OF EFFECTIVE PAIN MANAGEMENT, AND THE PAIN ASSESSMENT PROCESS?YES LATEX QUESTIONNAIRE LATEX ALLERGY : HAVE YOU EVER DEVELOPED ANY TYPE OF REACTION AFTER HANDLING LATEX PRODUCTS SUCH RUBBER GLOVES, CONDOMS, DIAPHRAGMS, BALLOONS, SOCKS, OR UNDERWEAR?NO LATEX ALLERGY : HAVE YOU EVER DEVELOPED ANY TYPE OF REACTION DURING OR AFTER DENTAL APPOINTMENT, VAGINAL/RECTAL EXAMINATION, SURGICAL PROCEDURE, OR ANY OTHER EXPOSURE?NO LATEX RISK : HAVE YOU EVER HAD ANY DIFFICULTY BREATHING OR HIVES AFTER EATING OR HANDLING ANY FRUITS, OR VEGETABLES; SUCH KIWI, BANANAS, STONE FRUITS, OR CHESTNUTSNO LATEX RISK : DO YOU HAVE A PREVIOUS PERSONAL HISTORY OF MORE THAN NINE SURGERIES, SPINA BIFIDA, OR REPEATED CATHERIZATIONS? NO LATEX RISK : ARE YOU FREQUENTLY EXPOSED TO LATEX PRODUCTS IN YOUR OCCUPATION?NO DATE ASKED : 07/04/2019 ADVANCE DIRECTIVE ADVANCE DIRECTIVE DISCUSSED WITH PATIENT:YES 09/04/2019 STATES SHE HAS HCP - ALEXA MACIAS (SISTER) [phone] BUDDHIST [id number] OTHER MARITAL STATUS: SINGLE. ALCOHOL SCREENING DID YOU HAVE A DRINK CONTAINING ALCOHOL IN THE PAST YEAR?NO POINTS0 INTERPRETATIONNEGATIVE OCCUPATION: DISABLED. HOSPITALIZATION/MAJOR DIAGNOSTIC PROCEDURE SURGERIES ETHROIDITIS REVIEW OF SYSTEMS REVIEWED BY: PROVIDER: ANGEL LUIS MORALES . CONSTITUTIONAL: ANY CHANGE IN YOUR MEDICAL CONDITION? NO . CHILLS NO . FEVER NO . INFECTION: DO YOU HAVE NEW INFECTIONS? NO . DO YOU HAVE HISTORY OF MRSA? NO . MUSCULOSKELETAL: ANY NEW PATTERNS OF PAIN OR NUMBNESS? YES, STATES RIGHT HIP WORSENING AGAIN - HAS BEEN TRYING TO WALK MUCH POSSIBLE . GASTROENTEROLOGY: ANY NEW CHANGE IN BOWEL CONTROL? NO . GENITOURINARY: ANY NEW CHANGE IN BLADDER CONTROL? NO . IS THERE A CHANCE YOU COULD BE ? NO . HEMATOLOGY/LYMPH: DO YOU TAKE ANY BLOOD THINNERS? (FOR EXAMPLE- COUMADIN, PLAVIX, AGGRENOX, PLATEL, PRADAXA, OR XARELTO) NO . WHEN WAS YOUR LAST DOSE? DATE: TIME: . NEUROLOGY: HAVE YOU FALLEN IN THE PAST 12 MONTHS? YES, STATES FALL IN JULY, NO INJURIES AND NO ED VISIT . ANY NEW EXTREMITY NUMBNESS OR WEAKNESS? NO . CARDIOLOGY: DO YOU HAVE A PACEMAKER OR DEFIBRILLATOR? NO . RESPIRATORY: HAVE YOU BEEN SICK IN THE PAST WEEK? NO . FEVER NO . FLU LIKE SYMPTOMS? NO . COUGH NO . INTEGUMENTARY: DO YOU HAVE ANY RASHES OR OPEN SORES? NO . ALLERGIC/IMMUNO: ARE YOU ALLERGIC TO IV DYE? NO . ANY NEW ALLERGIES? NO . PSYCHIATRIC: DO YOU HAVE THOUGHTS OF HURTING YOURSELF OR SOMEONE ELSE? NO . ARE YOU ABUSED, NEGLECTED, OR IN AN UNSAFE ENVIRONMENT? NO . ENDOCRINOLOGY: ARE YOU DIABETIC? NO . OTHER: DO YOU NEED ANY PRESCRIPTIONS? NO . IF YES, PLEASE LIST: ____ . ANY NEW PROBLEMS WITH YOUR MEDICATIONS? NO . WHEN DID YOU LAST EAT? ____ . WHEN DID YOU LAST DRINK? ____ . WHAT DID YOU LAST DRINK? ____ . NAME OF PERSON DRIVING YOU HOME? ____ . DO YOU HAVE ANY OTHER QUESTIONS OR CONCERNS NO . EXAMINATION GENERAL EXAMINATION: GENERALNO ACUTE DISTRESS, WELL NOURISHED AND HYDRATED. PSYCHAPPROPRIATE MOOD AND AFFECT . FACE:UNREMARKABLE. ASSESSMENTS NEUROPATHY - G62.9 (PRIMARY) INTERVERTEBRAL DISC DISORDER WITH RADICULOPATHY OF LUMBAR REGION - M51.16 TREATMENT NEUROPATHY CONTINUE BACLOFEN TABLET, 20 MG, 1 TABLET WITH FOOD OR MILK, ORALLY, EVERY 8 HRS NEEDED CONTINUE LYRICA CAPSULE, 200 MG, 1, ORALLY, Q8H TID MDD3 CONTINUE GABAPENTIN CAPSULE, 300 MG, 1 CAPSULE, ORALLY, BID CONTINUE TRAMADOL HCL TABLET, 50 MG, 2 TAB, ORALLY, Q6-8H PRN MDD6 CONTINUE LIDOCAINE CREAM, 4 %, 1 APPLICATION NEEDED, EXTERNALLY, THREE TIMES A DAY NOTES: ADVISED PATIENT TO CONTINUE CURRENT CHRONIC PAIN MEDICATION. KEEP SCHEDULED APPOINTMENT FOR LUMBAR EPIDURAL STEROID INJECTION WITH DR. ROJAS IN OCTOBER. FOLLOW-UP WITH NURSE PRACTITIONER 2 WEEKS POST PROCEDURE. OBTAIN URINE FOR TOXICOLOGY AT THAT VISIT. WE WILL TRY TO OBTAIN NERVE CONDUCTION STUDIES AND LAST VISIT NOTES, AT [facility]. HAVE PATIENT SIGN A RELEASE SO THAT WE CAN GET INFORMATION FROM [facility] AT FOLLOW-UP VISIT., ISTOP REGISTRY REVIEWED AND DEMONSTRATES COMPLLIANCE. RECENT URINE TOXICOLOGY REVIEWED. NO UNAUTHORIZED MEDICATIONS. NO ILLICIT SUBSTANCES AND PRESCRIBED MEDICATIONS WERE PRESENT. TOTAL TIME SPENT DURING TELEMED VISIT WAS APPROXIMATELY 11 MINUTES. OTHERS NOTES: NO VITALS OBTAINED DUE TO VIRTUAL VISIT. DISPOSITION & COMMUNICATION FOLLOW UP ALREADY SCHEDULED FOR [facility] A IN OCTOBER (REASON: LBP/RADICULOPATHY/MED MGMNT/POST PROC) ELECTRONICALLY SIGNED BY ANDREW HARRIS ON 09/04/2019 AT 11:39 AM EDT DISCLAIMER : THIS IS A VISIT SUMMARY EXTRACTED FROM THE [facility] CHART. IT IS NOT A COPY OF THE [facility] PROGRESS NOTE. LASHAY
== END ==
LOC: M PAIN 10:00 → M TMPAIN 10:00
PROVIDERS: ATTEND Nurse Practitioner Family
DX: G62.9 Polyneuropathy, unspecified (principal); M51.16 Intervertebral disc disorders with radiculopathy, lumbar region; F17.210 Nicotine dependence, cigarettes, uncomplicated; Z79.891 Long term (current) use of opiate analgesic; Z79.899 Other long term (current) drug therapy; Z88.8 Allergy status to other drugs, medicaments and biological substances

== ENCOUNTER → 2019-09-19 | Outpatient (CLI) | payer OTHER | LOC: M LABSMTC 12:40 | PROVIDERS: ATTEND Anesthesiology | DX: Z01.818 Encounter for other preprocedural examination (principal); Z11.59 Encounter for screening for other viral diseases ==

== ENCOUNTER → 2019-09-22 | Outpatient (CLI) | payer OTHER ==
[~2019-09-22] MED LIST changes: +ISOVUE-M 300 61% 15ML VIAL As Ordered ONE; +LIDOCAINE 1% SDV 30ML VIAL As Ordered ONE; +dexameTHASONE 10MG/1ML VIAL PRES.FREE (J1100 PER 1MG) As Ordered ONE; +diazePAM 5 MG TAB As Ordered ONE; +oxyCODONE 5MG TAB As Ordered ONE
--- NOTE | 2019-09-22 12:55 | REP ---
Partial lumbar spine series: Three views . History: Injection procedure for pain. Five seconds of fluoroscopy time is reported. Findings: A sequence of three fluoroscopically obtained last image hold procedural spot radiographs of the lumbar spine document needle position and contrast injection associated with injection procedure. Electronically Signed by Nikita Garcia MD 09/22/2019 12:47 P
--- NOTE | 2019-09-25 00:38 | ECWPNPC ---
PATIENT NAME: ADELFO MACIAS : 1980 GENDER: FEMALE VISIT DATE: 09/22/2019 DISCHARGE DATE: 09/22/19 1252 VISIT LOCKED DATE TIME: PHYSICIAN: KYAW ROJAS MD RESOURCE: KYAW ROJAS MD REASON FOR APPOINTMENT 1. EPIDURAL INJECTION HISTORY OF PRESENT ILLNESS HISTORY OF PRESENT ILLNESS: PAIN THE PATIENT DESCRIBES THE PAIN... FALL RISK SCREENING: SCREENING :NO FALLS REPORTED IN THE LAST YEAR CURRENT MEDICATIONS TAKING ZOFRAN 4 MG TABLET 2 TABLETS ORALLY ONCE A DAY, NOTES: PRN TAKING NORTRIPTYLINE HCL 25 MG CAPSULE 1 CAPSULE ORALLY BEFORE BEDTIME, NOTES: 09/21/20191999 TAKING BACLOFEN 20 MG TABLET 1 TABLET WITH FOOD OR MILK ORALLY EVERY 8 HRS NEEDED, NOTES: 09/22/2019 050 TAKING LYRICA 200 MG CAPSULE 1 ORALLY Q8H TID MDD3, NOTES: 09/22/2019 050 TAKING GABAPENTIN 300 MG CAPSULE 1 CAPSULE ORALLY BID, NOTES: 09/21/20191999 TAKING TRAMADOL HCL 50 MG TABLET 2 TAB ORALLY Q6-8H PRN MDD6, NOTES: 09/22/2019 050 TAKING LIDOCAINE 4 % CREAM 1 APPLICATION NEEDED EXTERNALLY THREE TIMES A DAY, NOTES: PRN MEDICATION LIST REVIEWED AND RECONCILED WITH THE PATIENT PAST MEDICAL HISTORY ANEMIA ANXIETY D/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 NERVE CONDUCTION DONE AT [facility] LOST FEELING IN RIGHT HAND PINCHED NERVE RIGHT ELBOW MYALGIA FIBROMYALGIA INTERVERTEBRAL DISC DISORDER WITH RADICULOPATHY OF LUMBAR REGION LEFT LEG PAIN ALLERGIES ENVIRONMENTAL: SINUS CONGESTION,ITCHY EYES - ALLERGY NSAIDS: INTERNAL BLEED - SIDE EFFECTS ASPIRIN: VOMIT - SIDE EFFECTS SURGICAL HISTORY LAPAROSCOPY COLONOSCOPY-WNL 2013 CHOLECYSTECTOMY 2012 TUBALIGATION APPENDECTOMY RIGHT SHOULDER REPAIR FAMILY HISTORY FATHER: ALIVE, DOESN'T KNOW HISTORY OF FATHER MOTHER: ALIVE 56 YRS, LUPUS, DIAGNOSED WITH DIABETES, OTHER SPECIFIED CONDITIONS INFLUENCING HEALTH STATUS 1 SON(S) - HEALTHY. MOTHER HAS BRIDGET. SOCIAL HISTORY GENERAL: TOBACCO USE ARE YOU A:CURRENT SMOKER ARE YOU INTERESTED IN QUITTING?READY TO QUIT STATES SHE IS TRYING TO CUT BACK AND QUIT. HAS PATCHES GOING TO QUIT PREVIOUS QUIT ATTEMPTS?NO. COUNSELED THE PATIENT ON TOBACCO USE, CESSATION [id number]/16/2020 HOW MANY CIGARETTES A DAY DO YOU SMOKE?5 OR LESS HOW SOON AFTER YOU WAKE UP DO YOU SMOKE YOUR FIRST CIGARETTE?WITHIN 5 MIN HOW OFTEN DO YOU SMOKE CIGARETTES?EVERY DAY PATIENT COUNSELED ON THE DANGERS OF TOBACCO USE AND URGED TO QUIT:09/22/2019 LATEX QUESTIONNAIRE LATEX ALLERGY : HAVE YOU EVER DEVELOPED ANY TYPE OF REACTION AFTER HANDLING LATEX PRODUCTS SUCH RUBBER GLOVES, CONDOMS, DIAPHRAGMS, BALLOONS, SOCKS, OR UNDERWEAR?NO LATEX ALLERGY : HAVE YOU EVER DEVELOPED ANY TYPE OF REACTION DURING OR AFTER DENTAL APPOINTMENT, VAGINAL/RECTAL EXAMINATION, SURGICAL PROCEDURE, OR ANY OTHER EXPOSURE?NO DATE ASKED : 07/04/2019 LATEX RISK : HAVE YOU EVER HAD ANY DIFFICULTY BREATHING OR HIVES AFTER EATING OR HANDLING ANY FRUITS, OR VEGETABLES; SUCH KIWI, BANANAS, STONE FRUITS, OR CHESTNUTSNO LATEX RISK : DO YOU HAVE A PREVIOUS PERSONAL HISTORY OF MORE THAN NINE SURGERIES, SPINA BIFIDA, OR REPEATED CATHERIZATIONS? NO LATEX RISK : ARE YOU FREQUENTLY EXPOSED TO LATEX PRODUCTS IN YOUR OCCUPATION?NO ALCOHOL SCREENING DID YOU HAVE A DRINK CONTAINING ALCOHOL IN THE PAST YEAR?NO POINTS0 INTERPRETATIONNEGATIVE RECREATIONAL DRUG USE DRUG USE?NO NONDENOMINATIONAL [id number] OTHER LANGUAGE LANGUAGES SPOKEN:[place] EDUCATION LEVEL OF EDUCATION:HIGH SCHOOL LEARNING BARRIERS / SPECIAL NEEDS BARRIERS TO LEARNING?NO HEARING IMPAIRED?NO VISION IMPAIRED?NO COGNITIVELY IMPAIRED?NO READINESS TO LEARN?YES LEARNING PREFERENCES?YES :HANDOUTS LEARNING CAPABILITIES PRESENT?YES EMOTIONAL BARRIERS?NO SPECIAL DEVICES?NO SOUND EFFECTS SUPERVISOR NEEDED?NO DOMESTIC VIOLENCE DO YOU FEEL SAFE IN YOUR ENVIRONMENT?YES OCCUPATION: DISABLED. DIET: REGULAR. EXERCISE: WALKS. MARITAL STATUS: SINGLE. OTHERS AT HOME: CHILD. NEW PATIENT PAIN DIARY TODAY'S VISITNOTES 09/22/2019 PATIENT DESCRIBES PAIN :ACHING, HAVE IT ALL THE TIME, THROBBING, SHOOTING FROM 0-10, WHAT LEVEL IS YOUR PAIN TODAY?9 PRECIPITATING FACTORS STANDING ALLEVIATING FACTORS LAYING DOWN PAIN CLINIC PFS, CLERGY, PUBLIC HEALTH REFERRALS PFS REFERRAL NEEDED?NO CLERGY REFERRAL NEEDED?NO PUBLIC HEALTH REFERRAL NEEDED?NO WAS THE PROVIDER NOTIFIED OF ANY PERTINENT INFO? N/A HAS THE PATIENT BEEN EDUCATED REGARDING HIS/HER PLAN OF CARE?YES HAS THE PATIENT BEEN EDUCATED REGARDING PAIN, THE RISK FOR PAIN, THE IMPORTANCE OF EFFECTIVE PAIN MANAGEMENT, AND THE PAIN ASSESSMENT PROCESS?YES ADVANCE DIRECTIVE ADVANCE DIRECTIVE DISCUSSED WITH PATIENT:YES 09/04/2019 STATES SHE HAS HCP - ALEXA GILBERTO (SISTER) [phone] HOSPITALIZATION/MAJOR DIAGNOSTIC PROCEDURE SURGERIES ETHROIDITIS REVIEW OF SYSTEMS REVIEWED BY: PROVIDER: KYAW ROJAS MD . CONSTITUTIONAL: ANY CHANGE IN YOUR MEDICAL CONDITION? NO . CHILLS NO . FEVER NO . INFECTION: DO YOU HAVE NEW INFECTIONS? NO . DO YOU HAVE HISTORY OF MRSA? NO . MUSCULOSKELETAL: ANY NEW PATTERNS OF PAIN OR NUMBNESS? NO . GASTROENTEROLOGY: ANY NEW CHANGE IN BOWEL CONTROL? NO . GENITOURINARY: ANY NEW CHANGE IN BLADDER CONTROL? NO . IS THERE A CHANCE YOU COULD BE ? NO . HEMATOLOGY/LYMPH: DO YOU TAKE ANY BLOOD THINNERS? (FOR EXAMPLE- COUMADIN, PLAVIX, AGGRENOX, PLATEL, PRADAXA, OR XARELTO) NO . WHEN WAS YOUR LAST DOSE? DATE: TIME: . NEUROLOGY: HAVE YOU FALLEN IN THE PAST 12 MONTHS? YES- JULY 2019- KNOCKED DOWN- NO INJURIES, NO MEDICAL CARE RECEIVED . ANY NEW EXTREMITY NUMBNESS OR WEAKNESS? NO . CARDIOLOGY: DO YOU HAVE A PACEMAKER OR DEFIBRILLATOR? NO . RESPIRATORY: HAVE YOU BEEN SICK IN THE PAST WEEK? NO . FEVER NO . FLU LIKE SYMPTOMS? NO . COUGH NO . INTEGUMENTARY: DO YOU HAVE ANY RASHES OR OPEN SORES? NO . ALLERGIC/IMMUNO: ARE YOU ALLERGIC TO IV DYE? NO . ANY NEW ALLERGIES? NO . PSYCHIATRIC: DO YOU HAVE THOUGHTS OF HURTING YOURSELF OR SOMEONE ELSE? NO . ARE YOU ABUSED, NEGLECTED, OR IN AN UNSAFE ENVIRONMENT? NO . ENDOCRINOLOGY: ARE YOU DIABETIC? NO . OTHER: DO YOU NEED ANY PRESCRIPTIONS? NO . IF YES, PLEASE LIST: ____ . ANY NEW PROBLEMS WITH YOUR MEDICATIONS? NO . WHEN DID YOU LAST EAT? 09/21/2019 1900 . WHEN DID YOU LAST DRINK? 09/22/2019 0500 . WHAT DID YOU LAST DRINK? WATER . NAME OF PERSON DRIVING YOU HOME? LEATHA . DO YOU HAVE ANY OTHER QUESTIONS OR CONCERNS NO . VITAL SIGNS WT 205 LBS, HT 66", BMI 33.08 INDEX, BP 136/73 MM HG, HR 84 /MIN, RR 18 /MIN, TEMP 97.0 F, OXYGEN SAT % 100%, NA INITIALS AW 1047. ASSESSMENTS INTERVERTEBRAL DISC DISORDER WITH RADICULOPATHY OF LUMBAR REGION - M51.16 (PRIMARY) TREATMENT INTERVERTEBRAL DISC DISORDER WITH RADICULOPATHY OF LUMBAR REGION START CARISOPRODOL TABLET, 350 MG, 1 TABLET NEEDED, ORALLY FOR SPASMS AND PAIN, EVERY 8 HOURS NEEDED MDD 2, 3 DAYS, 6, REFILLS [facility] FLUORO GUIDE SPINE INJECTION (PAIN)[id number] CLINICAL NOTES: MS. MACIAS CALLED WITH INCREASE IN LOW BACK PAIN AND SPASMS TODAY. INSTRUCTIONS WERE GIVEN BY THE NURSE. I WILL ORDER SOMA PO. ISTOP NUMBER [id number] CHECKED. . PROCEDURES PRE PROCEDURE DIAGNOSIS LUMBAR DISC DISORDER WITH RADICULOPATHY POST PROCEDURE DIAGNOSIS LUMBAR DISC DISORDER WITH RADICULOPATHY PROCEDURE LUMBAR EPIDURAL STEROID INJECTION UNDER FLUOROSCOPIC GUIDANCE SURGEON DR. KYAW ROJAS COMMUNICATIONS ASSOCIATE NONE ANESTHESIA LOCAL PRE PROCEDURE NOTE THE PATIENT HAS A HISTORY OF CHRONIC LOW BACK PAIN. I EVALUATED THE PATIENT AND REVIEWED THE CHART. I WENT OVER THE RISKS, ALTERNATIVES, AND BENEFITS ASSOCIATED WITH THIS PROCEDURE. I DISCUSSED WITH THE PATIENT THAT THE USE OF STEROIDS MAY CONTRIBUTE TO IMMUNOSUPPRESSION OF HER BODY AGAINST INFECTIONS SUCH THE MOY VIRUS, COVID-19. SHE IS AWARE OF THE POTENTIAL COMPLICATIONS ASSOCIATED WITH AN INFECTION OF THIS VIRUS INCLUDING . THE PATIENT WOULD LIKE TO PROCEED AND GIVE CONSENT TO PERFORMED THE PROCEDURE. THE PATIENT DENIES UNEXPLAINABLE WEIGHT LOSS, FEVER, CHILLS, OR NEW CHANGES IN URINARY OR BOWEL CONTROL. THE PATIENT IS COVID-19 NEGATIVE DESCRIPTION OF PROCEDURE THE PATIENT WAS BROUGHT TO THE PROCEDURE ROOM AND PLACED IN THE PRONE POSITION. THE LUMBOSACRAL AREA WAS CLEANED WITH BETADINE SOLUTION AND DRAPED ASEPTICALLY. THE PROCEDURE WAS DONE UNDER STERILE CONDITIONS. I CHECKED LATERALITY AND THE LEVEL WHERE THE PROCEDURE WAS GOING TO BE PERFORMED WITH THE PATIENT AND THE SUPPORTING STAFF AT THE MOMENT OF THE TIME OUT IN THE PROCEDURE ROOM. UNDER FLUOROSCOPIC GUIDANCE, THE TARGET POINT WAS SELECTED AT THE INTERLAMINAR LEVEL OF L4-L5 LIDOCAINE WAS USED TO NUMB THE SKIN AND THE SUBCUTANEOUS TISSUE BELOW IT. EPIDURAL TUOHY NEEDLE, 17-GAUGE, WAS ADVANCED UNDER FLUOROSCOPIC GUIDANCE AND FOLLOWING PATIENT FEEDBACK UNTIL THE EPIDURAL SPACE WAS REACHED, 8 CM DEEP INTO THE SKIN BY THE LOSS OF RESISTANCE TECHNIQUE. ISOVUE M DYE 30%, 0.25 ML, WAS INJECTED SHOWING ADEQUATE SPREAD OF THE DYE. THEN, A SOLUTION OF 3 ML OF NORMAL SALINE WITH DEXAMETHASONE 10 MG WAS INJECTED SLOWLY FOLLOWING PATIENT FEEDBACK. THERE WAS NO EVIDENCE OF BLOOD, PARESTHESIA OR CEREBROSPINAL FLUID DURING THE PROCEDURE. THE PATIENT WAS SENT TO THE RECOVERY ROOM. THE PATIENT WAS MOVING THE EXTREMITIES AND DOING WELL. THERE WAS NO COMPLICATION DURING THE PROCEDURE. FLUOROSCOPY TIME WAS 5 SECONDS POST PROCEDURE NOTE THE PATIENT WILL BE SEEN IN A FOLLOW UP IN THE NEXT FEW WEEKS. I AM LOOKING FOR LONG LASTING PAIN RELIEF FOR THE PATIENT WITH THIS INJECTION. INSTRUCTIONS WERE GIVEN, QUESTIONS WERE ANSWERED, AND THE PATIENT EXPRESSED UNDERSTANDING AND AGREES WITH THE PLAN. I INSTRUCTED THE PATIENT TO STAY HOME, IF POSSIBLE, FOR A WEEK DUE TO COVID-19. I, EDER MACKAY, DOCUMENTED THE ABOVE INFORMATION ACTING A SCRIBE FOR DR. ROJAS. I HAVE REVIEWED THE ABOVE DOCUMENT, WRITTEN BY EDER MACKAY, DARSHANAIBE, AND I VERIFY THAT IT IS ACCURATE PROCEDURE CODES 23548 LUMBAR/SACRAL W/ IMAGING 6045F RADXPS IN END [id number] PXD DISPOSITION & COMMUNICATION FOLLOW UP 2 WEEKS F/UP WITH TOLL TRANSMISSION WORKER (REASON: POST-PROCEDURE F/UP-LOW BACK PAIN) ELECTRONICALLY SIGNED BY KYAW ROJAS MD, ON 09/24/2019 AT 10:10 AM EDT DISCLAIMER : THIS IS A VISIT SUMMARY EXTRACTED FROM THE [facility] CHART. IT IS NOT A COPY OF THE [facility] PROGRESS NOTE. LASHAY
== END ==
LOC: M PAIN 10:45
PROVIDERS: ATTEND Anesthesiology
DX: M51.16 Intervertebral disc disorders with radiculopathy, lumbar region (principal); Z86.59 Personal history of other mental and behavioral disorders; M79.7 Fibromyalgia; F17.210 Nicotine dependence, cigarettes, uncomplicated; Z88.6 Allergy status to analgesic agent; Z79.891 Long term (current) use of opiate analgesic; Z79.899 Other long term (current) drug therapy
CPT/HCPCS: 62323; J1100; Q9967

== ENCOUNTER → 2019-10-08 | Outpatient (CLI) | payer OTHER ==
[~2019-10-08] MED LIST changes: -ISOVUE-M 300 61% 15ML VIAL As Ordered ONE; -LIDOCAINE 1% SDV 30ML VIAL As Ordered ONE; -dexameTHASONE 10MG/1ML VIAL PRES.FREE (J1100 PER 1MG) As Ordered ONE; -diazePAM 5 MG TAB As Ordered ONE; -oxyCODONE 5MG TAB As Ordered ONE
--- NOTE | 2019-10-15 03:35 | ECWPNPC ---
PATIENT NAME: ADELFO MACIAS : 1980 GENDER: FEMALE VISIT DATE: 10/08/2019 DISCHARGE DATE: 10/08/19 1051 VISIT LOCKED DATE TIME: PHYSICIAN: ANGEL LUIS SMITH RESOURCE: ANGEL LUIS SMITH REASON FOR APPOINTMENT 1. POST-PROCEDURE F/UP-LOW BACK PAIN PAT DONE HISTORY OF PRESENT ILLNESS HISTORY OF PRESENT ILLNESS: PATIENT IS AGREEABLE TO TELEMED VISIT VIA ZOOM. THIS IS A POST PROCEDURE FOLLOW-UP AFTER LUMBAR EPIDURAL STEROID INJECTION ON 09/22/2019. HAD A RASH AND INCREASED PAIN FOR 24 HOURS POST INJECTION. SPOKE TO DR. ROJAS AND WAS TREATED WITH BENADRYL AND SOMA WITH IMPROVEMENT IN 24 HOURS. HAS BEEN TESTED BY ALLERGISTS IN THE PAST FOR ALLERGY TO LOCAL ANESTHETIC OR STEROID WITH NEGATIVE RESULTS. CONTINUES TO BENEFIT FROM EPIDURAL TODAY. RATING PAIN LEVEL AN 8/10 VAS. ANY FURTHER INJECTIONS WILL HAVE TO BE CLEARED BY DR. ROJAS. ADVISED TO CONTINUE WITH CURRENT PAIN MEDICATIONS. PAIN THE PATIENT DESCRIBES THE PAIN... FALL RISK SCREENING: SCREENING :NO FALLS REPORTED IN THE LAST YEAR CURRENT MEDICATIONS TAKING ZOFRAN 4 MG TABLET 2 TABLETS ORALLY ONCE A DAY TAKING NORTRIPTYLINE HCL 25 MG CAPSULE 1 CAPSULE ORALLY BEFORE BEDTIME TAKING BACLOFEN 20 MG TABLET 1 TABLET WITH FOOD OR MILK ORALLY EVERY 8 HRS NEEDED TAKING LYRICA 200 MG CAPSULE 1 ORALLY Q8H TID MDD3 TAKING GABAPENTIN 300 MG CAPSULE 1 CAPSULE ORALLY BID TAKING TRAMADOL HCL 50 MG TABLET 2 TAB ORALLY Q6-8H PRN MDD6 TAKING LIDOCAINE 4 % CREAM 1 APPLICATION NEEDED EXTERNALLY THREE TIMES A DAY NOT-TAKING CARISOPRODOL 350 MG TABLET 1 TABLET NEEDED ORALLY FOR SPASMS AND PAIN EVERY 8 HOURS NEEDED MDD 2 MEDICATION LIST REVIEWED AND RECONCILED WITH THE PATIENT PAST MEDICAL HISTORY ANEMIA ANXIETY D/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 NERVE CONDUCTION DONE AT [facility] LOST FEELING IN RIGHT HAND PINCHED NERVE RIGHT ELBOW MYALGIA FIBROMYALGIA INTERVERTEBRAL DISC DISORDER WITH RADICULOPATHY OF LUMBAR REGION LEFT LEG PAIN ALLERGIES ENVIRONMENTAL: SINUS CONGESTION,ITCHY EYES - ALLERGY NSAIDS: INTERNAL BLEED - SIDE EFFECTS ASPIRIN: VOMIT - SIDE EFFECTS SURGICAL HISTORY LAPAROSCOPY COLONOSCOPY-WNL 2013 CHOLECYSTECTOMY 2012 TUBALIGATION APPENDECTOMY RIGHT SHOULDER REPAIR FAMILY HISTORY FATHER: ALIVE, DOESN'T KNOW HISTORY OF FATHER MOTHER: ALIVE 56 YRS, LUPUS, DIAGNOSED WITH OTHER SPECIFIED CONDITIONS INFLUENCING HEALTH STATUS, DIABETES 1 SON(S) - HEALTHY. MOTHER HAS BRIDGET. SOCIAL HISTORY GENERAL: TOBACCO USE ARE YOU A:CURRENT SMOKER ARE YOU INTERESTED IN QUITTING?READY TO QUIT STATES SHE IS TRYING TO CUT BACK AND QUIT. HAS PATCHES GOING TO QUIT PREVIOUS QUIT ATTEMPTS?NO. COUNSELED THE PATIENT ON TOBACCO USE, CESSATION [id number]/2020 HOW MANY CIGARETTES A DAY DO YOU SMOKE?5 OR LESS HOW SOON AFTER YOU WAKE UP DO YOU SMOKE YOUR FIRST CIGARETTE?WITHIN 5 MIN HOW OFTEN DO YOU SMOKE CIGARETTES?EVERY DAY PATIENT COUNSELED ON THE DANGERS OF TOBACCO USE AND URGED TO QUIT:10/07/2019 LATEX QUESTIONNAIRE LATEX ALLERGY : HAVE YOU EVER DEVELOPED ANY TYPE OF REACTION AFTER HANDLING LATEX PRODUCTS SUCH RUBBER GLOVES, CONDOMS, DIAPHRAGMS, BALLOONS, SOCKS, OR UNDERWEAR?NO LATEX ALLERGY : HAVE YOU EVER DEVELOPED ANY TYPE OF REACTION DURING OR AFTER DENTAL APPOINTMENT, VAGINAL/RECTAL EXAMINATION, SURGICAL PROCEDURE, OR ANY OTHER EXPOSURE?NO LATEX RISK : HAVE YOU EVER HAD ANY DIFFICULTY BREATHING OR HIVES AFTER EATING OR HANDLING ANY FRUITS, OR VEGETABLES; SUCH KIWI, BANANAS, STONE FRUITS, OR CHESTNUTSNO LATEX RISK : DO YOU HAVE A PREVIOUS PERSONAL HISTORY OF MORE THAN NINE SURGERIES, SPINA BIFIDA, OR REPEATED CATHERIZATIONS? NO LATEX RISK : ARE YOU FREQUENTLY EXPOSED TO LATEX PRODUCTS IN YOUR OCCUPATION?NO DATE ASKED : 10/07/2019 ALCOHOL SCREENING DID YOU HAVE A DRINK CONTAINING ALCOHOL IN THE PAST YEAR?NO POINTS0 INTERPRETATIONNEGATIVE RECREATIONAL DRUG USE DRUG USE?NO MU-ISM [id number] OTHER LANGUAGE LANGUAGES SPOKEN:CITIZEN OF [place] EDUCATION LEVEL OF EDUCATION:HIGH SCHOOL LEARNING BARRIERS / SPECIAL NEEDS BARRIERS TO LEARNING?NO HEARING IMPAIRED?NO VISION IMPAIRED?NO COGNITIVELY IMPAIRED?NO READINESS TO LEARN?YES LEARNING PREFERENCES?YES :HANDOUTS LEARNING CAPABILITIES PRESENT?YES EMOTIONAL BARRIERS?NO SPECIAL DEVICES?NO CUTTING MACHINE TENDER DECORATIVE NEEDED?NO DOMESTIC VIOLENCE DO YOU FEEL SAFE IN YOUR ENVIRONMENT?YES OCCUPATION: DISABLED. DIET: REGULAR. EXERCISE: WALKS. MARITAL STATUS: SINGLE. OTHERS AT HOME: CHILD. NEW PATIENT PAIN DIARY TODAY'S VISITNOTES 10/08/2019 PATIENT DESCRIBES PAIN :ACHING, HAVE IT ALL THE TIME, THROBBING, SHOOTING FROM 0-10, WHAT LEVEL IS YOUR PAIN TODAY?7 PRECIPITATING FACTORS STANDING ALLEVIATING FACTORS LAYING DOWN PAIN CLINIC PFS, CLERGY, PUBLIC HEALTH REFERRALS PFS REFERRAL NEEDED?NO CLERGY REFERRAL NEEDED?NO PUBLIC HEALTH REFERRAL NEEDED?NO WAS THE PROVIDER NOTIFIED OF ANY PERTINENT INFO? N/A HAS THE PATIENT BEEN EDUCATED REGARDING HIS/HER PLAN OF CARE?YES HAS THE PATIENT BEEN EDUCATED REGARDING PAIN, THE RISK FOR PAIN, THE IMPORTANCE OF EFFECTIVE PAIN MANAGEMENT, AND THE PAIN ASSESSMENT PROCESS?YES ADVANCE DIRECTIVE ADVANCE DIRECTIVE DISCUSSED WITH PATIENT:YES STATES SHE HAS HCP - ALEXA MACIAS (SISTER) [phone] HOSPITALIZATION/MAJOR DIAGNOSTIC PROCEDURE SURGERIES ETHROIDITIS REVIEW OF SYSTEMS REVIEWED BY: PROVIDER: , ANGEL LUIS MORALES . CONSTITUTIONAL: ANY CHANGE IN YOUR MEDICAL CONDITION? NO, . CHILLS NO, NO . FEVER NO, NO . INFECTION: DO YOU HAVE NEW INFECTIONS? NO, NO . DO YOU HAVE HISTORY OF MRSA? NO, NO . MUSCULOSKELETAL: ANY NEW PATTERNS OF PAIN OR NUMBNESS? YES, PAIN IN LEFT LEG IS NEW STARTED ABOUT 45 DAYS, SENSITIVE TO TOUCH . GASTROENTEROLOGY: ANY NEW CHANGE IN BOWEL CONTROL? NO, NO . GENITOURINARY: ANY NEW CHANGE IN BLADDER CONTROL? NO, NO . IS THERE A CHANCE YOU COULD BE ? NO, NO . HEMATOLOGY/LYMPH: DO YOU TAKE ANY BLOOD THINNERS? (FOR EXAMPLE- COUMADIN, PLAVIX, AGGRENOX, PLATEL, PRADAXA, OR XARELTO) NO, NO . WHEN WAS YOUR LAST DOSE? DATE: TIME: , DATE: TIME: . NEUROLOGY: HAVE YOU FALLEN IN THE PAST 12 MONTHS? YES, PT STATES THAT SHE FELL OUT OF BED, NO INJURY FROM FALL. NO REPORT TO ED. DS . ANY NEW EXTREMITY NUMBNESS OR WEAKNESS? NO, NO . CARDIOLOGY: DO YOU HAVE A PACEMAKER OR DEFIBRILLATOR? NO, NO . RESPIRATORY: HAVE YOU BEEN SICK IN THE PAST WEEK? NO, NO . FEVER NO, NO . FLU LIKE SYMPTOMS? NO, NO . COUGH NO, NO . INTEGUMENTARY: DO YOU HAVE ANY RASHES OR OPEN SORES? NO, NO . ALLERGIC/IMMUNO: ARE YOU ALLERGIC TO IV DYE? NO, NO . ANY NEW ALLERGIES? NO, NO . PSYCHIATRIC: DO YOU HAVE THOUGHTS OF HURTING YOURSELF OR SOMEONE ELSE? NO, NO . ARE YOU ABUSED, NEGLECTED, OR IN AN UNSAFE ENVIRONMENT? NO, NO . ENDOCRINOLOGY: ARE YOU DIABETIC? NO, NO . OTHER: DO YOU NEED ANY PRESCRIPTIONS? NO, NO . IF YES, PLEASE LIST: ____, ____ . ANY NEW PROBLEMS WITH YOUR MEDICATIONS? NO, NO . WHEN DID YOU LAST EAT? ____, ____ . WHEN DID YOU LAST DRINK? ____, ____ . WHAT DID YOU LAST DRINK? ____, ____ . NAME OF PERSON DRIVING YOU HOME? ____, ____ . DO YOU HAVE ANY OTHER QUESTIONS OR CONCERNS NO, NO . EXAMINATION GENERAL EXAMINATION: GENERALNO ACUTE DISTRESS, WELL NOURISHED AND HYDRATED. PSYCHAPPROPRIATE MOOD AND AFFECT . FACE:UNREMARKABLE. ASSESSMENTS INTERVERTEBRAL DISC DISORDER WITH RADICULOPATHY OF LUMBAR REGION - M51.16 (PRIMARY) TREATMENT INTERVERTEBRAL DISC DISORDER WITH RADICULOPATHY OF LUMBAR REGION CONTINUE LYRICA CAPSULE, 200 MG, 1, ORALLY, Q8H TID MDD3 CONTINUE GABAPENTIN CAPSULE, 300 MG, 1 CAPSULE, ORALLY, BID CONTINUE TRAMADOL HCL TABLET, 50 MG, 2 TAB, ORALLY, Q6-8H PRN MDD6 NOTES: CONTINUE HOME EXERCISE AND STRETCHING. CONTINUE TRAMADOL, GABAPENTIN AND LYRICA. FOLLOW-UP WILL BE SCHEDULED IN 2 MONTHS. TOTAL TIME SPENT DURING TELEMED VISIT WAS APPROXIMATELY 11 MINUTES. DISPOSITION & COMMUNICATION FOLLOW UP 2 MONTHS IN CLINIC (REASON: LOW BACK PAIN) ELECTRONICALLY SIGNED BY ANDREW HARRIS ON 10/14/2019 AT 03:30 PM EDT DISCLAIMER : THIS IS A VISIT SUMMARY EXTRACTED FROM THE [employer] CHART. IT IS NOT A COPY OF THE [employer] PROGRESS NOTE. MTDD
== END ==
LOC: M PAIN 10:00 → M TMPAIN 10:00
PROVIDERS: ATTEND Nurse Practitioner Family
DX: M51.16 Intervertebral disc disorders with radiculopathy, lumbar region (principal); F17.210 Nicotine dependence, cigarettes, uncomplicated; Z79.891 Long term (current) use of opiate analgesic; Z79.899 Other long term (current) drug therapy; Z88.8 Allergy status to other drugs, medicaments and biological substances

== ENCOUNTER → 2019-12-05 | Outpatient (CLI) | payer OTHER ==
--- NOTE | 2019-12-11 05:44 | ECWPNPC ---
PATIENT NAME: ADELFO MACIAS : 1980 GENDER: FEMALE VISIT DATE: 12/05/2019 DISCHARGE DATE: 12/05/19 1044 VISIT LOCKED DATE TIME: PHYSICIAN: ANGEL LUIS SMITH RESOURCE: ANGEL LUIS SMITH REASON FOR APPOINTMENT 1. LOW BACK PAIN HISTORY OF PRESENT ILLNESS GENERAL: HERE FOR FOLLOW-UP OF CHRONIC LOW BACK PAIN WITH LEFT LEG RADICULAR SYMPTOMS. MRI OF THE LS SPINE IS REVIEWED. HAS SIGNIFICANT PATHOLOGY NOTED. NEUROLOGY HAS REFERRED HER TO A SURGEON. SHE HAS NOT HEARD WITH AN APPOINTMENT YET. REPORTING SEVERE IMPAIRED SLEEP DUE TO PAIN. REVIEWED MEDICATION AND DISCUSSED MEDICATION PLAN. RECENTLY HAS HAD EPIDURAL WITH ADVERSE REACTION OF RASH AT INJECTION SITE. A FUTURE INJECTION WOULD HAVE TO BE CLEARED BY DR. ROJAS. -. FALL RISK SCREENING: SCREENING :NO FALLS REPORTED IN THE LAST YEAR PAIN SCREENING: PATIENT HAS A COMPLAINT OF ACUTE OR CHRONIC PAIN :YES LOCATION OF PAIN:LOW BACK INTENSITY OF PAIN (SCALE OF 1 TO 10):10 WHAT DOES YOUR PAIN FEEL LIKE:SHARP, STABBING DURATION:CONTINOUS, CONSTANT, ALL DAY, AWAKENS FROM SLEEP PAIN IS INCREASED BY:ACTIVITIES, PROLONGED STANDING PAIN IS DECREASED BY:USE OF PAIN MEDICATIONS TRAMADOL LEVEL OF RELIEF FROM PAIN TREATMENTS IN THE PAST:50% PAIN HAS INTERFERED WITH THE FOLLOWING:MOOD, HOUSEWORK, RELATIONSHIP WITH OTHERS, ENJOYMENT OF LIFE PLAN/GOALS/TREATMENT/INTERVENTION/FOLLOW UP:SEE PLAN NURSING NOTE: -. PAIN CENTER INTAKE QUESTIONS: DO YOU HAVE A HISTORY OF MRSA? :NO DO YOU TAKE A BLOOD THINNERS? :NO DO YOU HAVE ANY BLEEDING DISORDERS? :NO ANY NEW NUMBNESS OR WEAKNESS IN YOUR LEGS OR ARMS? :NO ANY PACEMAKER,DEFIBRILLATOR, OR DORSAL COLUMN STIMULATOR? :NO DO YOU HAVE ANY RASHES OR OPEN SORES? :NO ARE YOU ALLERGIC TO IV DYE? :NO ARE YOU DIABETIC? :NO ANY NEW PROBLEMS WITH YOUR MEDICATIONS? :NO HAVE YOU RECEIVED A VACCINE IN THE PAST 30 DAYS? :NO DO YOU PLAN TO RECEIVE A VACCINE IN THE NEXT 21 DAYS? :NO DO YOU NEED ANY PRESCRIPTION? :NO DO YOU TAKE ANY IMMUNOSUPPRESSIVE MEDICATIONS? :NO IS THERE A CHANCE YOU COULD BE ? :NO ARE YOU BREAST FEEDING? :NO CURRENT MEDICATIONS TAKING ZOFRAN 4 MG TABLET 2 TABLETS ORALLY ONCE A DAY TAKING NORTRIPTYLINE HCL 25 MG CAPSULE 1 CAPSULE ORALLY BEFORE BEDTIME TAKING BACLOFEN 20 MG TABLET 1 TABLET WITH FOOD OR MILK ORALLY EVERY 8 HRS NEEDED TAKING LIDOCAINE 4 % CREAM 1 APPLICATION NEEDED EXTERNALLY THREE TIMES A DAY TAKING LYRICA 200 MG CAPSULE 1 ORALLY Q8H TID MDD3 TAKING GABAPENTIN 300 MG CAPSULE 1 CAPSULE ORALLY BID TAKING TRAMADOL HCL 50 MG TABLET 2 TAB ORALLY Q6-8H PRN MDD6 NOT-TAKING CARISOPRODOL 350 MG TABLET 1 TABLET NEEDED ORALLY FOR SPASMS AND PAIN EVERY 8 HOURS NEEDED MDD 2 MEDICATION LIST REVIEWED AND RECONCILED WITH THE PATIENT PAST MEDICAL HISTORY ANEMIA ANXIETY D/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 NERVE CONDUCTION DONE AT [facility] LOST FEELING IN RIGHT HAND PINCHED NERVE RIGHT ELBOW MYALGIA FIBROMYALGIA INTERVERTEBRAL DISC DISORDER WITH RADICULOPATHY OF LUMBAR REGION LEFT LEG PAIN ALLERGIES ENVIRONMENTAL: SINUS CONGESTION,ITCHY EYES - ALLERGY NSAIDS: INTERNAL BLEED - SIDE EFFECTS ASPIRIN: VOMIT - SIDE EFFECTS SURGICAL HISTORY LAPAROSCOPY COLONOSCOPY-WNL 2013 CHOLECYSTECTOMY 2012 TUBALIGATION APPENDECTOMY RIGHT SHOULDER REPAIR FAMILY HISTORY FATHER: ALIVE, DOESN'T KNOW HISTORY OF FATHER MOTHER: ALIVE 56 YRS, LUPUS, DIAGNOSED WITH DIABETES, OTHER SPECIFIED CONDITIONS INFLUENCING HEALTH STATUS 1 SON(S) - HEALTHY. MOTHER HAS BRIDGET. SOCIAL HISTORY GENERAL: TOBACCO USE ARE YOU A:CURRENT SMOKER ARE YOU INTERESTED IN QUITTING?READY TO QUIT STATES SHE IS TRYING TO CUT BACK AND QUIT. HAS PATCHES GOING TO QUIT PREVIOUS QUIT ATTEMPTS?NO. COUNSELED THE PATIENT ON TOBACCO USE, CESSATION [id number]/17/2020 HOW MANY CIGARETTES A DAY DO YOU SMOKE?5 OR LESS HOW SOON AFTER YOU WAKE UP DO YOU SMOKE YOUR FIRST CIGARETTE?WITHIN 5 MIN HOW OFTEN DO YOU SMOKE CIGARETTES?EVERY DAY PATIENT COUNSELED ON THE DANGERS OF TOBACCO USE AND URGED TO QUIT:12/05/2019 SMOKING CESSATION INFORMATION GIVEN12/05/2019 LATEX QUESTIONNAIRE LATEX ALLERGY : HAVE YOU EVER DEVELOPED ANY TYPE OF REACTION AFTER HANDLING LATEX PRODUCTS SUCH RUBBER GLOVES, CONDOMS, DIAPHRAGMS, BALLOONS, SOCKS, OR UNDERWEAR?NO LATEX ALLERGY : HAVE YOU EVER DEVELOPED ANY TYPE OF REACTION DURING OR AFTER DENTAL APPOINTMENT, VAGINAL/RECTAL EXAMINATION, SURGICAL PROCEDURE, OR ANY OTHER EXPOSURE?NO LATEX RISK : HAVE YOU EVER HAD ANY DIFFICULTY BREATHING OR HIVES AFTER EATING OR HANDLING ANY FRUITS, OR VEGETABLES; SUCH KIWI, BANANAS, STONE FRUITS, OR CHESTNUTSNO LATEX RISK : DO YOU HAVE A PREVIOUS PERSONAL HISTORY OF MORE THAN NINE SURGERIES, SPINA BIFIDA, OR REPEATED CATHERIZATIONS? NO LATEX RISK : ARE YOU FREQUENTLY EXPOSED TO LATEX PRODUCTS IN YOUR OCCUPATION?NO DATE ASKED : 12/05/2019 ALCOHOL SCREENING DID YOU HAVE A DRINK CONTAINING ALCOHOL IN THE PAST YEAR?NO POINTS0 INTERPRETATIONNEGATIVE RECREATIONAL DRUG USE DRUG USE?NO CAODAISM [id number] OTHER LANGUAGE LANGUAGES SPOKEN:MAORI EDUCATION LEVEL OF EDUCATION:HIGH SCHOOL LEARNING BARRIERS / SPECIAL NEEDS BARRIERS TO LEARNING?NO HEARING IMPAIRED?NO VISION IMPAIRED?NO COGNITIVELY IMPAIRED?NO READINESS TO LEARN?YES LEARNING PREFERENCES?YES :HANDOUTS LEARNING CAPABILITIES PRESENT?YES EMOTIONAL BARRIERS?NO SPECIAL DEVICES?NO FINISHER TAILOR APPRENTICE NEEDED?NO DOMESTIC VIOLENCE DO YOU FEEL SAFE IN YOUR ENVIRONMENT?YES OCCUPATION: DISABLED. DIET: REGULAR. EXERCISE: WALKS. MARITAL STATUS: SINGLE. OTHERS AT HOME: CHILD. NEW PATIENT PAIN DIARY TODAY'S VISITNOTES PATIENT DESCRIBES PAIN :ACHING, HAVE IT ALL THE TIME, THROBBING, SHOOTING FROM 0-10, WHAT LEVEL IS YOUR PAIN TODAY?7 PRECIPITATING FACTORS STANDING ALLEVIATING FACTORS LAYING DOWN PAIN CLINIC PFS, CLERGY, PUBLIC HEALTH REFERRALS PFS REFERRAL NEEDED?NO CLERGY REFERRAL NEEDED?NO PUBLIC HEALTH REFERRAL NEEDED?NO WAS THE PROVIDER NOTIFIED OF ANY PERTINENT INFO? N/A HAS THE PATIENT BEEN EDUCATED REGARDING HIS/HER PLAN OF CARE?YES HAS THE PATIENT BEEN EDUCATED REGARDING PAIN, THE RISK FOR PAIN, THE IMPORTANCE OF EFFECTIVE PAIN MANAGEMENT, AND THE PAIN ASSESSMENT PROCESS?YES ADVANCE DIRECTIVE ADVANCE DIRECTIVE DISCUSSED WITH PATIENT:YES STATES SHE HAS HCP - ALEXA MACIAS (SISTER) [phone] HOSPITALIZATION/MAJOR DIAGNOSTIC PROCEDURE SURGERIES ETHROIDITIS REVIEW OF SYSTEMS CONSTITUTIONAL: ANY RECENT FEVER NO . CHILLS NO . WEIGHT CHANGE OF UNKNOWN REASONS NO . GASTROENTEROLOGY: NEW UNEXPLAINABLE CHANGES IN BOWEL CONTROL NO . CONSTIPATION NO . GENITOURINARY: ANY NEW CHANGE IN BLADDER CONTROL? NO . NEUROLOGY: NEW ONSET DIZZINESS OR NEUROLOGICAL CHANGES NOT MENTIONED NO . NEW NUMBNESS OR PAIN PATTERNS NOT MENTIONED AND PERTINENT TO TODAY'S VISIT NO . CARDIOLOGY: NEW CHEST PRESSURE NO . NEW CHEST PAIN NO . RESPIRATORY: UNEXPLAINABLE COUGH NO . NEW SHORTNESS OF BREATH NO . VITAL SIGNS WT 201.4 LBS, HT 66", BMI 32.50 INDEX, BP 135/72 MM HG, HR 76 /MIN, RR 18 /MIN, TEMP 97.3 F, OXYGEN SAT % 99%, SAFE IN ENV? (Y/N) YES, NA INITIALS AW [id number] ASSISTANT AT SURGERY. EXAMINATION GENERAL EXAMINATION: GENERAL AWAKE,ALERT ,CONSTRICTED,DEPRESSED. PSYCH AFFECT NORMAL . LUNGS: LUNG VARGAS ARE CLEAR TO AUSCULTATION BILATERALLY. GOOD MOVEMENT OF AIR . HEART: S1, S2 IN A REGULAR RATE AND RHYTHM. NO SIGNIFICANT MURMURS, RUBS OR GALLOPS NOTED . LUMBAR: PALPATION: + FOR PAIN OVER L/S SPINE. + FOR PAIN OVER L/S PARASPINALS. NEUROLOGIC EXAM: NORMAL SENSATION LIGHT TOUCH BILAT. LOWER EXTREMITIES. ASSESSMENTS INTERVERTEBRAL DISC DISORDER WITH RADICULOPATHY OF LUMBAR REGION - M51.16 (PRIMARY) CHRONIC USE OF OPIATE FOR THERAPEUTIC PURPOSE - Z79.891 TREATMENT INTERVERTEBRAL DISC DISORDER WITH RADICULOPATHY OF LUMBAR REGION CONTINUE LYRICA CAPSULE, 200 MG, 1, ORALLY, Q8H TID MDD3 INCREASE GABAPENTIN CAPSULE, 300 MG, 1 CAP DIRECTED, ORALLY, 1 IN A.M., 1 LATE AFTERNOON AND 2 AT BEDTIME, 30 DAYS, 120, REFILLS 2 CONTINUE TRAMADOL HCL TABLET, 50 MG, 2 TAB, ORALLY, Q6-8H PRN MDD6 START HYDROCODONE-ACETAMINOPHEN TABLET, 5-325 MG, 1 TABLET NEEDED, ORALLY, ONCE DAILY FOR NIGHTTIME AWAKENINGS FOR PAIN. MDD 1 #25 TABLETS SHOULD LAST 30 DAYS., 30 DAYS, 25, REFILLS 0 NOTES: INCREASE GABAPENTIN 300 MG: TAKE 1 CAPSULE IN A.M., 1 CAPSULE LATE AFTERNOON AND 2 CAPSULES AT BEDTIME. MAY USE HYDROCODONE 5/325 PERIODICALLY AT NIGHT FOR NIGHTTIME AWAKENINGS. 25 TABLETS FOR A 30 DAY SUPPLY WILL BE ISSUED. CAUTIONED NOT TO USE ONE TABLET EVERY NIGHT. CONTINUE USE OF TRAMADOL, MAXIMUM DAILY DOSE OF 6 TABLETS. NARCOTIC AGREEMENT IS REVIEWED AND SIGNED. URINE TOXICOLOGY OBTAINED. FOLLOW-UP AT PAIN CLINIC IN 6 WEEKS. ENCOURAGED TO CONTACT NEUROLOGY ON A WEEKLY BASIS TO CHECK ON HER REFERRAL TO SURGEON. PROCEDURE CODES FA211 ESTABILISHED PATIENT [facility] CHARGE DISPOSITION & COMMUNICATION FOLLOW UP 6 WEEKS (REASON: MEDICATION MANAGEMENT) ELECTRONICALLY SIGNED BY ANDREW HARRIS ON 12/10/2019 AT 03:37 PM EDT DISCLAIMER : THIS IS A VISIT SUMMARY EXTRACTED FROM THE [employer] CHART. IT IS NOT A COPY OF THE [employer] PROGRESS NOTE. MTDD
== END ==
LOC: M PAIN 09:45
PROVIDERS: ATTEND Nurse Practitioner Family
DX: M51.16 Intervertebral disc disorders with radiculopathy, lumbar region (principal); Z79.891 Long term (current) use of opiate analgesic

== ENCOUNTER → 2020-03-09 | Outpatient (CLI) | payer OTHER ==
--- NOTE | 2020-03-15 11:22 | ECWPNPC ---
PATIENT NAME: ADELFO MACIAS : 1980 GENDER: FEMALE VISIT DATE: 03/09/2020 DISCHARGE DATE: 03/09/20 1521 VISIT LOCKED DATE TIME: PHYSICIAN: ANGEL LUIS SMITH RESOURCE: ANGEL LUIS SMITH REASON FOR APPOINTMENT 1. BACK HISTORY OF PRESENT ILLNESS GENERAL: BEING SEEN FOR FOLLOW-UP OF CHRONIC LOW BACK PAIN AND LOWER EXTREMITY PAIN. RATING PAIN LEVEL A 10 OVER 10 VAS. TRAMADOL WAS REDUCED TO 4 TABLETS A DAY BY [facility]. THERE WAS SOME DISCREPANCY IN WHO WAS PRESCRIBING HER PAIN MEDICATIONS. I HAVE BEEN PRESCRIBING TRAMADOL FOR HER FOR SEVERAL YEARS. SHE HAD A RECENT VISIT TO [facility] AND THEY BEGAN GIVING HER A SMALL AMOUNT OF PERCOCET AND TRAMADOL. SHE IS AWARE THAT IF WE ARE GOING TO CONTINUE WITH MEDICINE MANAGEMENT HERE AT THE PAIN CENTER SHE WOULD NOT BE ABLE TO TAKE PAIN MEDICATIONS FROM [facility]. SHE SEEMS TO UNDERSTAND THIS. DISCUSSED MEDICATION AND TREATMENT PLAN.-. FALL RISK SCREENING: SCREENING :ONE FALL WITHOUT INJURY IN THE PAST YEAR PAIN SCREENING: PATIENT HAS A COMPLAINT OF ACUTE OR CHRONIC PAIN :YES LOCATION OF PAIN:LOW BACK, LEG(S) INTENSITY OF PAIN (SCALE OF 1 TO 10):10 WHAT DOES YOUR PAIN FEEL LIKE:ACHING, BURNING, SHARP, STABBING, THROBBING, SHOOTING DURATION:CONTINOUS, CONSTANT PAIN IS INCREASED BY:ACTIVITIES PAIN IS DECREASED BY:SITTING TREATMENT/MEDICATIONS USED TO MANAGE PAIN:OPIOIDS LEVEL OF RELIEF FROM PAIN TREATMENTS IN THE PAST:75% PAIN HAS INTERFERED WITH THE FOLLOWING:BATHING/DRESSING, WALKING ABILITY, HOUSEWORK, SLEEP NURSING NOTE: -. PAIN CENTER INTAKE QUESTIONS: DO YOU HAVE A HISTORY OF MRSA? :NO DO YOU TAKE A BLOOD THINNERS? :NO DO YOU HAVE ANY BLEEDING DISORDERS? :YES RECTAL BLEEDING WHEN TAKING NSAIDS ANY NEW NUMBNESS OR WEAKNESS IN YOUR LEGS OR ARMS? :NO ANY PACEMAKER,DEFIBRILLATOR, OR DORSAL COLUMN STIMULATOR? :NO DO YOU HAVE ANY RASHES OR OPEN SORES? :NO ARE YOU ALLERGIC TO IV DYE? :NO ARE YOU DIABETIC? :NO ANY NEW PROBLEMS WITH YOUR MEDICATIONS? :NO HAVE YOU RECEIVED A VACCINE IN THE PAST 30 DAYS? :YES FLU VACCINE LAST WEEK DO YOU PLAN TO RECEIVE A VACCINE IN THE NEXT 21 DAYS? :NO DO YOU NEED ANY PRESCRIPTION? :NO DO YOU TAKE ANY IMMUNOSUPPRESSIVE MEDICATIONS? :NO IS THERE A CHANCE YOU COULD BE ? :NO ARE YOU BREAST FEEDING? :NO CURRENT MEDICATIONS TAKING ZOFRAN 4 MG TABLET 2 TABLETS ORALLY ONCE A DAY TAKING NORTRIPTYLINE HCL 25 MG CAPSULE 1 CAPSULE ORALLY BEFORE BEDTIME TAKING BACLOFEN 20 MG TABLET 1 TABLET WITH FOOD OR MILK ORALLY EVERY 8 HRS NEEDED TAKING LIDOCAINE 4 % CREAM 1 APPLICATION NEEDED EXTERNALLY THREE TIMES A DAY TAKING LYRICA 200 MG CAPSULE 1 ORALLY Q8H TID MDD3 TAKING GABAPENTIN 300 MG CAPSULE 1 CAP DIRECTED ORALLY 1 IN A.M., 1 LATE AFTERNOON AND 2 AT BEDTIME TAKING TRAMADOL HCL 50 MG TABLET 2 TAB ORALLY Q6-8H PRN MDD6 NOT-TAKING HYDROCODONE-ACETAMINOPHEN 5-325 MG TABLET 1 TABLET NEEDED ORALLY ONCE DAILY FOR NIGHTTIME AWAKENINGS FOR PAIN. MDD 1 #25 TABLETS SHOULD LAST 30 DAYS. NOT-TAKING CARISOPRODOL 350 MG TABLET 1 TABLET NEEDED ORALLY FOR SPASMS AND PAIN EVERY 8 HOURS NEEDED MDD 2 MEDICATION LIST REVIEWED AND RECONCILED WITH THE PATIENT PAST MEDICAL HISTORY ANEMIA ANXIETY D/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 NERVE CONDUCTION DONE AT [facility] LOST FEELING IN RIGHT HAND PINCHED NERVE RIGHT ELBOW MYALGIA FIBROMYALGIA INTERVERTEBRAL DISC DISORDER WITH RADICULOPATHY OF LUMBAR REGION LEFT LEG PAIN ALLERGIES ENVIRONMENTAL: SINUS CONGESTION,ITCHY EYES - ALLERGY NSAIDS: INTERNAL BLEED - SIDE EFFECTS ASPIRIN: VOMIT - SIDE EFFECTS SURGICAL HISTORY LAPAROSCOPY COLONOSCOPY-WNL 2013 CHOLECYSTECTOMY 2012 TUBALIGATION APPENDECTOMY RIGHT SHOULDER REPAIR FAMILY HISTORY FATHER: ALIVE, DOESN'T KNOW HISTORY OF FATHER MOTHER: ALIVE 56 YRS, LUPUS, DIAGNOSED WITH DIABETES, OTHER SPECIFIED CONDITIONS INFLUENCING HEALTH STATUS 1 SON(S) - HEALTHY. MOTHER HAS BRIDGET. SOCIAL HISTORY GENERAL: TOBACCO USE ARE YOU A:CURRENT SMOKER ARE YOU INTERESTED IN QUITTING?READY TO QUIT STATES SHE IS TRYING TO CUT BACK AND QUIT. HAS PATCHES GOING TO QUIT PREVIOUS QUIT ATTEMPTS?NO. COUNSELED THE PATIENT ON TOBACCO USE, CESSATION [id number]/20/2020 HOW MANY CIGARETTES A DAY DO YOU SMOKE?5 OR LESS HOW SOON AFTER YOU WAKE UP DO YOU SMOKE YOUR FIRST CIGARETTE?WITHIN 5 MIN HOW OFTEN DO YOU SMOKE CIGARETTES?EVERY DAY PATIENT COUNSELED ON THE DANGERS OF TOBACCO USE AND URGED TO QUIT:12/05/2019 SMOKING CESSATION INFORMATION GIVEN12/05/2019 LATEX QUESTIONNAIRE LATEX ALLERGY : HAVE YOU EVER DEVELOPED ANY TYPE OF REACTION AFTER HANDLING LATEX PRODUCTS SUCH RUBBER GLOVES, CONDOMS, DIAPHRAGMS, BALLOONS, SOCKS, OR UNDERWEAR?NO LATEX ALLERGY : HAVE YOU EVER DEVELOPED ANY TYPE OF REACTION DURING OR AFTER DENTAL APPOINTMENT, VAGINAL/RECTAL EXAMINATION, SURGICAL PROCEDURE, OR ANY OTHER EXPOSURE?NO DATE ASKED : 12/05/2019 LATEX RISK : HAVE YOU EVER HAD ANY DIFFICULTY BREATHING OR HIVES AFTER EATING OR HANDLING ANY FRUITS, OR VEGETABLES; SUCH KIWI, BANANAS, STONE FRUITS, OR CHESTNUTSNO LATEX RISK : DO YOU HAVE A PREVIOUS PERSONAL HISTORY OF MORE THAN NINE SURGERIES, SPINA BIFIDA, OR REPEATED CATHERIZATIONS? NO LATEX RISK : ARE YOU FREQUENTLY EXPOSED TO LATEX PRODUCTS IN YOUR OCCUPATION?NO ALCOHOL SCREENING DID YOU HAVE A DRINK CONTAINING ALCOHOL IN THE PAST YEAR?NO POINTS0 INTERPRETATIONNEGATIVE RECREATIONAL DRUG USE DRUG USE?NO EPISCOPALIAN [id number] OTHER LANGUAGE LANGUAGES SPOKEN:KHMER EDUCATION LEVEL OF EDUCATION:HIGH SCHOOL LEARNING BARRIERS / SPECIAL NEEDS BARRIERS TO LEARNING?NO HEARING IMPAIRED?NO VISION IMPAIRED?NO COGNITIVELY IMPAIRED?NO READINESS TO LEARN?YES LEARNING PREFERENCES?YES :HANDOUTS LEARNING CAPABILITIES PRESENT?YES EMOTIONAL BARRIERS?NO SPECIAL DEVICES?NO PIPEFITTER HELPER NEEDED?NO DOMESTIC VIOLENCE DO YOU FEEL SAFE IN YOUR ENVIRONMENT?YES OCCUPATION: DISABLED. DIET: REGULAR. EXERCISE: WALKS. MARITAL STATUS: SINGLE. OTHERS AT HOME: CHILD. NEW PATIENT PAIN DIARY TODAY'S VISITNOTES PATIENT DESCRIBES PAIN :ACHING, HAVE IT ALL THE TIME, THROBBING, SHOOTING FROM 0-10, WHAT LEVEL IS YOUR PAIN TODAY?7 PRECIPITATING FACTORS STANDING ALLEVIATING FACTORS LAYING DOWN PAIN CLINIC PFS, CLERGY, PUBLIC HEALTH REFERRALS PFS REFERRAL NEEDED?NO CLERGY REFERRAL NEEDED?NO PUBLIC HEALTH REFERRAL NEEDED?NO WAS THE PROVIDER NOTIFIED OF ANY PERTINENT INFO? N/A HAS THE PATIENT BEEN EDUCATED REGARDING HIS/HER PLAN OF CARE?YES HAS THE PATIENT BEEN EDUCATED REGARDING PAIN, THE RISK FOR PAIN, THE IMPORTANCE OF EFFECTIVE PAIN MANAGEMENT, AND THE PAIN ASSESSMENT PROCESS?YES ADVANCE DIRECTIVE ADVANCE DIRECTIVE DISCUSSED WITH PATIENT:YES STATES SHE HAS HCP - ALEXA MACIAS (SISTER) [phone] HOSPITALIZATION/MAJOR DIAGNOSTIC PROCEDURE SURGERIES ETHROIDITIS REVIEW OF SYSTEMS CONSTITUTIONAL: ANY RECENT FEVER NO . CHILLS NO . WEIGHT CHANGE OF UNKNOWN REASONS NO . GASTROENTEROLOGY: NEW UNEXPLAINABLE CHANGES IN BOWEL CONTROL NO . CONSTIPATION NO . GENITOURINARY: ANY NEW CHANGE IN BLADDER CONTROL? NO . NEUROLOGY: NEW ONSET DIZZINESS OR NEUROLOGICAL CHANGES NOT MENTIONED NO . NEW NUMBNESS OR PAIN PATTERNS NOT MENTIONED AND PERTINENT TO TODAY'S VISIT NO . CARDIOLOGY: NEW CHEST PRESSURE NO . NEW CHEST PAIN NO . RESPIRATORY: UNEXPLAINABLE COUGH NO . NEW SHORTNESS OF BREATH NO . VITAL SIGNS WT 195.4 LBS, HT 66", BMI 31.53 INDEX, BP 162/84 MM HG, HR 89 /MIN, RR 18 /MIN, TEMP 97.0 F, OXYGEN SAT % 100%, SAFE IN ENV? (Y/N) Y, NA INITIALS AW 1455, REVIEWED BY: EM. EXAMINATION GENERAL EXAMINATION: GENERAL AWAKE,ALERT ,CONSTRICTED,DEPRESSED. PSYCH AFFECT NORMAL . LUNGS: LUNG VARGAS ARE CLEAR TO AUSCULTATION BILATERALLY. GOOD MOVEMENT OF AIR . HEART: S1, S2 IN A REGULAR RATE AND RHYTHM. NO SIGNIFICANT MURMURS, RUBS OR GALLOPS NOTED . LUMBAR: PALPATION: + FOR PAIN OVER L/S SPINE. + FOR PAIN OVER L/S PARASPINALS. NEUROLOGIC EXAM: NORMAL SENSATION LIGHT TOUCH BILAT. LOWER EXTREMITIES. ASSESSMENTS INTERVERTEBRAL DISC DISORDER WITH RADICULOPATHY OF LUMBAR REGION - M51.16 (PRIMARY) TREATMENT INTERVERTEBRAL DISC DISORDER WITH RADICULOPATHY OF LUMBAR REGION NOTES: CONTINUE HOME EXERCISE AND STRETCHING. SHE HAS AGREED TO HAVE US BE PRESCRIBER OF ALL PAIN MEDICATION AND NARCOTIC AGREEMENT IS REVIEWED. RECOMMEND USE OF TRAMADOL 1-2 TABLETS EVERY 4-6 HOURS NEEDED WITH MAXIMUM DAILY DOSE OF 6 TABLETS. DISCONTINUE PERCOCET. FOLLOW-UP IS SCHEDULED IN 2 MONTHS. PROCEDURE CODES FA211 ESTABILISHED PATIENT [facility] CHARGE DISPOSITION & COMMUNICATION FOLLOW UP 2 MONTHS (REASON: MEDICATION MANAGEMENT/URINE TOXICOLOGY) ELECTRONICALLY SIGNED BY ANDREW HARRIS ON 03/15/2020 AT 08:47 AM EDT DISCLAIMER : THIS IS A VISIT SUMMARY EXTRACTED FROM THE [employer] CHART. IT IS NOT A COPY OF THE [employer] PROGRESS NOTE. LASHAY
== END ==
LOC: M PAIN 14:45
PROVIDERS: ATTEND Nurse Practitioner Family
DX: M51.16 Intervertebral disc disorders with radiculopathy, lumbar region (principal); F41.9 Anxiety disorder, unspecified; M06.9 Rheumatoid arthritis, unspecified; M79.7 Fibromyalgia; J30.9 Allergic rhinitis, unspecified; F17.210 Nicotine dependence, cigarettes, uncomplicated; Z79.891 Long term (current) use of opiate analgesic; Z79.899 Other long term (current) drug therapy; Z88.6 Allergy status to analgesic agent

== ENCOUNTER → 2020-06-02 | Outpatient (CLI) | payer OTHER ==
[~2020-06-02] MED LIST changes: +GABA-282 PO; -GABA-843 PO
--- NOTE | 2020-06-03 23:12 | ECWPNPC ---
PATIENT NAME: ADELFO MACIAS : 1980 GENDER: FEMALE VISIT DATE: 06/02/2020 DISCHARGE DATE: 06/02/20 1244 VISIT LOCKED DATE TIME: PHYSICIAN: ANGEL LUIS SMITH RESOURCE: ANGEL LUIS SMITH REASON FOR APPOINTMENT 1. BACK PAIN HISTORY OF PRESENT ILLNESS DEPRESSION SCREENING: PHQ-2 (2015 EDITION) LITTLE INTEREST OR PLEASURE IN DOING THINGS?NOT AT ALL FEELING DOWN, DEPRESSED, OR HOPELESS?NOT AT ALL TOTAL SCORE0 GENERAL: PATIENT IS BEING SEEN ON AN URGENT BASIS DUE TO SEVERE INCREASE IN LOW BACK PAIN. FINDS IT DIFFICULT TO TOLERATE ANY ACTIVITIES. CURRENTLY USING TRAMADOL 100 MG 3 TIMES A DAY WHICH IS INEFFECTIVE PER PATIENT. PATIENT HAS A SURGICAL BACK BUT IS UNABLE TO GET TO SURGEON IN [place] DUE TO MULTIPLE STRESSORS AND COVID 19. DENIES BOWEL OR BLADDER INCONTINENCE. DOES NOT TOLERATE INJECTION THERAPY. IS UNABLE TO TAKE NONSTEROIDAL ANTI-INFLAMMATORY DRUGS. REVIEWED MEDICATION TREATMENT PLAN. -. FALL RISK SCREENING: SCREENING :NO FALLS REPORTED IN THE LAST YEAR PAIN SCREENING: PATIENT HAS A COMPLAINT OF ACUTE OR CHRONIC PAIN :YES LOCATION OF PAIN:LOW BACK INTENSITY OF PAIN (SCALE OF 1 TO 10):10 WHAT DOES YOUR PAIN FEEL LIKE:ACHING, BURNING, SHARP, STABBING, THROBBING, SHOOTING DURATION:CONTINOUS, CONSTANT, ALL DAY PAIN IS INCREASED BY:ACTIVITIES, PROLONGED STANDING PAIN IS DECREASED BY:USE OF PAIN MEDICATIONS NURSING NOTE: -. PAIN CENTER INTAKE QUESTIONS: DO YOU HAVE A HISTORY OF MRSA? :NO DO YOU TAKE A BLOOD THINNERS? :NO DO YOU HAVE ANY BLEEDING DISORDERS? :NO ANY NEW NUMBNESS OR WEAKNESS IN YOUR LEGS OR ARMS? :NO ANY PACEMAKER,DEFIBRILLATOR, OR DORSAL COLUMN STIMULATOR? :NO DO YOU HAVE ANY RASHES OR OPEN SORES? :NO ARE YOU ALLERGIC TO IV DYE? :NO ARE YOU DIABETIC? :NO ANY NEW PROBLEMS WITH YOUR MEDICATIONS? :NO HAVE YOU RECEIVED A VACCINE IN THE PAST 30 DAYS? :NO DO YOU PLAN TO RECEIVE A VACCINE IN THE NEXT 21 DAYS? :NO DO YOU NEED ANY PRESCRIPTION? :NO DO YOU TAKE ANY IMMUNOSUPPRESSIVE MEDICATIONS? :NO IS THERE A CHANCE YOU COULD BE ? :NO ARE YOU BREAST FEEDING? :NO CURRENT MEDICATIONS TAKING ZOFRAN 4 MG TABLET 2 TABLETS ORALLY ONCE A DAY TAKING NORTRIPTYLINE HCL 25 MG CAPSULE 1 CAPSULE ORALLY BEFORE BEDTIME TAKING BACLOFEN 20 MG TABLET 1 TABLET WITH FOOD OR MILK ORALLY EVERY 8 HRS NEEDED TAKING LIDOCAINE 4 % CREAM 1 APPLICATION NEEDED EXTERNALLY THREE TIMES A DAY TAKING TRAMADOL HCL 50 MG TABLET 2 TAB ORALLY Q6-8H PRN MDD6 TAKING LYRICA 200 MG CAPSULE 1 ORALLY Q8H TID MDD3 TAKING GABAPENTIN 300 MG CAPSULE 1 CAP DIRECTED ORALLY 1 IN A.M., 1 LATE AFTERNOON AND 2 AT BEDTIME UNKNOWN HYDROCODONE-ACETAMINOPHEN 5-325 MG TABLET 1 TABLET NEEDED ORALLY ONCE DAILY FOR NIGHTTIME AWAKENINGS FOR PAIN. MDD 1 #25 TABLETS SHOULD LAST 30 DAYS. UNKNOWN CARISOPRODOL 350 MG TABLET 1 TABLET NEEDED ORALLY FOR SPASMS AND PAIN EVERY 8 HOURS NEEDED MDD 2 MEDICATION LIST REVIEWED AND RECONCILED WITH THE PATIENT PAST MEDICAL HISTORY ANEMIA ANXIETY D/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 NERVE CONDUCTION DONE AT [facility] FEEL[facility] IN RIGHT HAND PINCHED NERVE RIGHT ELBOW MYALGIA FIBROMYALGIA INTERVERTEBRAL DISC DISORDER WITH RADICULOPATHY OF LUMBAR REGION LEFT LEG PAIN ALLERGIES ENVIRONMENTAL: SINUS CONGESTION,ITCHY EYES - ALLERGY NSAIDS: INTERNAL BLEED - SIDE EFFECTS ASPIRIN: VOMIT - SIDE EFFECTS SURGICAL HISTORY LAPAROSCOPY COLONOSCOPY-WNL 2013 CHOLECYSTECTOMY 2012 TUBALIGATION APPENDECTOMY RIGHT SHOULDER REPAIR FAMILY HISTORY FATHER: ALIVE, DOESN'T KNOW HISTORY OF FATHER MOTHER: ALIVE 56 YRS, LUPUS, DIAGNOSED WITH OTHER SPECIFIED CONDITIONS INFLUENCING HEALTH STATUS, DIABETES 1 SON(S) - HEALTHY. MOTHER HAS BRIDGET. SOCIAL HISTORY GENERAL: TOBACCO USE ARE YOU A:CURRENT SMOKER ARE YOU INTERESTED IN QUITTING?READY TO QUIT STATES SHE IS TRYING TO CUT BACK AND QUIT. HAS PATCHES GOING TO QUIT PREVIOUS QUIT ATTEMPTS?NO. COUNSELED THE PATIENT ON TOBACCO USE, CESSATION [id number]/13/2021 HOW MANY CIGARETTES A DAY DO YOU SMOKE?5 OR LESS HOW SOON AFTER YOU WAKE UP DO YOU SMOKE YOUR FIRST CIGARETTE?WITHIN 5 MIN HOW OFTEN DO YOU SMOKE CIGARETTES?EVERY DAY PATIENT COUNSELED ON THE DANGERS OF TOBACCO USE AND URGED TO QUIT:12/05/2019 SMOKING CESSATION INFORMATION GIVEN12/05/2019 LATEX QUESTIONNAIRE LATEX ALLERGY : HAVE YOU EVER DEVELOPED ANY TYPE OF REACTION AFTER HANDLING LATEX PRODUCTS SUCH RUBBER GLOVES, CONDOMS, DIAPHRAGMS, BALLOONS, SOCKS, OR UNDERWEAR?NO LATEX ALLERGY : HAVE YOU EVER DEVELOPED ANY TYPE OF REACTION DURING OR AFTER DENTAL APPOINTMENT, VAGINAL/RECTAL EXAMINATION, SURGICAL PROCEDURE, OR ANY OTHER EXPOSURE?NO LATEX RISK : HAVE YOU EVER HAD ANY DIFFICULTY BREATHING OR HIVES AFTER EATING OR HANDLING ANY FRUITS, OR VEGETABLES; SUCH KIWI, BANANAS, STONE FRUITS, OR CHESTNUTSNO LATEX RISK : DO YOU HAVE A PREVIOUS PERSONAL HISTORY OF MORE THAN NINE SURGERIES, SPINA BIFIDA, OR REPEATED CATHERIZATIONS? NO LATEX RISK : ARE YOU FREQUENTLY EXPOSED TO LATEX PRODUCTS IN YOUR OCCUPATION?NO DATE ASKED : 06/02/2020 ALCOHOL SCREENING DID YOU HAVE A DRINK CONTAINING ALCOHOL IN THE PAST YEAR?NO POINTS0 INTERPRETATIONNEGATIVE RECREATIONAL DRUG USE DRUG USE?NO BAPTISM [id number] OTHER LANGUAGE LANGUAGES SPOKEN:ANGUILLAN EDUCATION LEVEL OF EDUCATION:HIGH SCHOOL LEARNING BARRIERS / SPECIAL NEEDS BARRIERS TO LEARNING?NO HEARING IMPAIRED?NO VISION IMPAIRED?NO COGNITIVELY IMPAIRED?NO READINESS TO LEARN?YES LEARNING PREFERENCES?YES :HANDOUTS LEARNING CAPABILITIES PRESENT?YES EMOTIONAL BARRIERS?NO SPECIAL DEVICES?YES :CANE, WALKER WARDROBE ASSISTANT NEEDED?NO DOMESTIC VIOLENCE DO YOU FEEL SAFE IN YOUR ENVIRONMENT?YES OCCUPATION: DISABLED. DIET: REGULAR. EXERCISE: WALKS. MARITAL STATUS: SINGLE. OTHERS AT HOME: CHILD. TODAY'S VISITNOTES PATIENT DESCRIBES PAIN :ACHING, HAVE IT ALL THE TIME, THROBBING, SHOOTING FROM 0-10, WHAT LEVEL IS YOUR PAIN TODAY?7 PRECIPITATING FACTORS STANDING ALLEVIATING FACTORS LAYING DOWN PAIN CLINIC PFS, CLERGY, PUBLIC HEALTH REFERRALS PFS REFERRAL NEEDED?NO CLERGY REFERRAL NEEDED?NO PUBLIC HEALTH REFERRAL NEEDED?NO WAS THE PROVIDER NOTIFIED OF ANY PERTINENT INFO? N/A HAS THE PATIENT BEEN EDUCATED REGARDING HIS/HER PLAN OF CARE?YES HAS THE PATIENT BEEN EDUCATED REGARDING PAIN, THE RISK FOR PAIN, THE IMPORTANCE OF EFFECTIVE PAIN MANAGEMENT, AND THE PAIN ASSESSMENT PROCESS?YES ADVANCE DIRECTIVE ADVANCE DIRECTIVE DISCUSSED WITH PATIENT:YES STATES SHE HAS HCP - ALEXA GILBERTO (SISTER) [phone] HOSPITALIZATION/MAJOR DIAGNOSTIC PROCEDURE SURGERIES ETHROIDITIS REVIEW OF SYSTEMS CONSTITUTIONAL: ANY RECENT FEVER NO . CHILLS NO . WEIGHT CHANGE OF UNKNOWN REASONS NO . GASTROENTEROLOGY: NEW UNEXPLAINABLE CHANGES IN BOWEL CONTROL NO . CONSTIPATION NO . GENITOURINARY: ANY NEW CHANGE IN BLADDER CONTROL? NO . NEUROLOGY: NEW ONSET DIZZINESS OR NEUROLOGICAL CHANGES NOT MENTIONED NO . NEW NUMBNESS OR PAIN PATTERNS NOT MENTIONED AND PERTINENT TO TODAY'S VISIT NO . CARDIOLOGY: NEW CHEST PRESSURE NO . NEW CHEST PAIN NO . RESPIRATORY: UNEXPLAINABLE COUGH NO . NEW SHORTNESS OF BREATH NO . VITAL SIGNS WT 197.8 LBS, HT 66", BMI 31.92 INDEX, BP 133.81 MM HG, HR 80 /MIN, RR 22 /MIN, TEMP 98.1 F, OXYGEN SAT % 100%Monserrat SIM RN. EXAMINATION GENERAL EXAMINATION: GENERALAWAKE,ALERT ,PLEASANT . PSYCHAFFECT NORMAL . LUNGS:LUNG VARGAS ARE CLEAR TO AUSCULTATION BILATERALLY. GOOD MOVEMENT OF AIR . HEART:S1, S2 IN A REGULAR RATE AND RHYTHM. NO SIGNIFICANT MURMURS, RUBS OR GALLOPS NOTED . ASSESSMENTS INTERVERTEBRAL DISC DISORDER WITH RADICULOPATHY OF LUMBAR REGION - M51.16 (PRIMARY) TREATMENT INTERVERTEBRAL DISC DISORDER WITH RADICULOPATHY OF LUMBAR REGION CONTINUE TRAMADOL HCL TABLET, 50 MG, 2 TAB, ORALLY, Q6-8H PRN MDD6 CONTINUE LYRICA CAPSULE, 200 MG, 1, ORALLY, Q8H TID MDD3 CONTINUE GABAPENTIN CAPSULE, 300 MG, 1 CAP DIRECTED, ORALLY, 1 IN A.M., 1 LATE AFTERNOON AND 2 AT BEDTIME START PERCOCET TABLET, 10-325 MG, 1 TABLET NEEDED, ORALLY, 1 TABLET EVERY 4-6 HOURS NEEDED FOR PAIN MDD 3, 30 DAYS, 90, REFILLS 0 START COLACE CAPSULE, 100 MG, 1 CAP, ORALLY, 1 IN AM,1 IN PM, 30 DAY(S), 60, REFILLS 2 NOTES: ADVISED PATIENT TO SLOWLY DECREASE TRAMADOL 50 MG TABLET. ADVISED TO TAKE 4 TABLETS A DAY FOR 10 DAYS, THEN 2 TABLETS A DAY UNTIL I SEE HER AT CLINIC IN 6 WEEKS. DUE TO SEVERE INCREASE IN LOW BACK PAIN OVER THE PAST MONTH I'M ADVISING HER TO START PERCOCET 10/325 ONE EVERY 4-6 HOURS NEEDED FOR SEVERE PAIN EPISODES. ADVISED HER TO RYAN DOWN WHEN SHE TAKES PAIN MEDICATIONS AND BRING TO CLINIC AT FOLLOW-UP. PATIENT GIVEN INFORMATION ON NEW MEDICATIONS, PERCOCET AND COLACE. Monserrat SIM RN. PROCEDURE CODES FA211 ESTABILISHED PATIENT [facility] CHARGE DISPOSITION & COMMUNICATION FOLLOW UP 6 WEEKS (REASON: MEDICATION MANAGEMENT AFTER STARTING PERCOCET 10/325 AND DECREASING TRAMADOL) ELECTRONICALLY SIGNED BY ANDREW HARRIS ON 06/03/2020 AT 01:44 PM EST DISCLAIMER : THIS IS A VISIT SUMMARY EXTRACTED FROM THE [employer] CHART. IT IS NOT A COPY OF THE [employer] PROGRESS NOTE. MTDD
== END ==
LOC: M PAIN 11:30
PROVIDERS: ATTEND Nurse Practitioner Family
DX: M51.16 Intervertebral disc disorders with radiculopathy, lumbar region (principal); M79.7 Fibromyalgia; F17.210 Nicotine dependence, cigarettes, uncomplicated; Z86.59 Personal history of other mental and behavioral disorders; Z88.6 Allergy status to analgesic agent; Z79.891 Long term (current) use of opiate analgesic; Z79.899 Other long term (current) drug therapy

== ENCOUNTER → 2020-08-24 | Outpatient (CLI) | payer OTHER ==
--- NOTE | 2020-08-28 05:24 | ECWPNPC ---
PATIENT NAME: ADELFO MACIAS : 1980 GENDER: FEMALE VISIT DATE: 08/24/2020 DISCHARGE DATE: 08/24/20 1551 VISIT LOCKED DATE TIME: PHYSICIAN: ANGEL LUIS SIMTH RESOURCE: ANGEL LUIS SMITH REASON FOR APPOINTMENT 1. BACK/MEDICATION HISTORY OF PRESENT ILLNESS GENERAL: HERE FOR FOLLOW-UP AND MEDICATION MANAGEMENT OF CHRONIC LOW BACK PAIN. CURRENTLY USING TRAMADOL 50 MG ONCE DAILY AND WILL BE FINISHING THIS UP AND DISCONTINUING THIS MEDICATION. TAKING OXYCODONE 10/325 3 TABLETS DAILY. FINDS MEDICATION SOMEWHAT EFFECTIVE AT REDUCING PAIN AND KEEPING HER FUNCTIONAL ALTHOUGH SHE RATES HER PAIN A 10 OVER 10 VAS. HISTORY OF FREQUENT FALLING. FOLLOWS WITH NEUROLOGY. THEY ARE REFERRING HER TO [facility] FOR HEAD AND SPINE PAIN. PATIENT STATES SHE WILL NOT HAVE ANY SURGERY. SHE IS NOT QUITE SURE WHY THEY ARE SENDING HER THERE. FORGOT TO BRING IN HER PAIN MEDICATION TODAY. I'VE AGREED TO REFILL HER MEDICATION AND WE WILL PERFORM URINE TOXICOLOGY TODAY. WILL FOLLOW UP IN 6 WEEKS FOR MEDICATION COUNT AND IDENTIFICATION. -. FALL RISK SCREENING: SCREENING ONE FALL LAST WEEK FROM TODAY 08/24/2020. PAIN SCREENING: PATIENT HAS A COMPLAINT OF ACUTE OR CHRONIC PAIN :YES LOCATION OF PAIN:LOW BACK INTENSITY OF PAIN (SCALE OF 1 TO 10):9 WHAT DOES YOUR PAIN FEEL LIKE:ACHING, BURNING, STABBING, TENDER, THROBBING, SHOOTING DURATION:CONTINOUS, CONSTANT, ALL DAY PAIN IS INCREASED BY:ACTIVITIES PAIN IS DECREASED BY:USE OF PAIN MEDICATIONS NURSING NOTE: -. PAIN CENTER INTAKE QUESTIONS: DO YOU HAVE A HISTORY OF MRSA? :NO DO YOU TAKE A BLOOD THINNERS? :NO DO YOU HAVE ANY BLEEDING DISORDERS? :NO ANY NEW NUMBNESS OR WEAKNESS IN YOUR LEGS OR ARMS? :NO ANY PACEMAKER,DEFIBRILLATOR, OR DORSAL COLUMN STIMULATOR? :NO DO YOU HAVE ANY RASHES OR OPEN SORES? :NO ARE YOU ALLERGIC TO IV DYE? :NO ARE YOU DIABETIC? :NO ANY NEW PROBLEMS WITH YOUR MEDICATIONS? :NO HAVE YOU RECEIVED A VACCINE IN THE PAST 30 DAYS? :NO DO YOU PLAN TO RECEIVE A VACCINE IN THE NEXT 21 DAYS? :NO DO YOU NEED ANY PRESCRIPTION? :NO DO YOU TAKE ANY IMMUNOSUPPRESSIVE MEDICATIONS? :NO IS THERE A CHANCE YOU COULD BE ? :NO ARE YOU BREAST FEEDING? :NO CURRENT MEDICATIONS TAKING ZOFRAN 4 MG TABLET 2 TABLETS ORALLY ONCE A DAY TAKING NORTRIPTYLINE HCL 25 MG CAPSULE 1 CAPSULE ORALLY BEFORE BEDTIME TAKING BACLOFEN 20 MG TABLET 1 TABLET WITH FOOD OR MILK ORALLY EVERY 8 HRS NEEDED TAKING LIDOCAINE 4 % CREAM 1 APPLICATION NEEDED EXTERNALLY THREE TIMES A DAY TAKING COLACE 100 MG CAPSULE 1 CAP ORALLY 1 IN AM,1 IN PM TAKING TRAMADOL HCL 50 MG TABLET 1 TAB ORALLY BID FOR CHRONIC PAIN MDD2 TAKING LYRICA 200 MG CAPSULE 1 ORALLY Q8H TID MDD3 TAKING PERCOCET 10-325 MG TABLET 1 TABLET NEEDED ORALLY 1 TABLET EVERY 4-6 HOURS NEEDED FOR PAIN MDD 3 TAKING GABAPENTIN 300 MG CAPSULE 1 CAP DIRECTED ORALLY 1 IN A.M., 1 LATE AFTERNOON AND 2 AT BEDTIME NOT-TAKING HYDROCODONE-ACETAMINOPHEN 5-325 MG TABLET 1 TABLET NEEDED ORALLY ONCE DAILY FOR NIGHTTIME AWAKENINGS FOR PAIN. MDD 1 #25 TABLETS SHOULD LAST 30 DAYS. 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 HAS PATCHES GOING TO QUIT PREVIOUS QUIT ATTEMPTS?NO. COUNSELED THE PATIENT ON TOBACCO USE, CESSATION [id number]/06/2021 HOW MANY CIGARETTES A DAY DO YOU SMOKE?5 OR LESS HOW SOON AFTER YOU WAKE UP DO YOU SMOKE YOUR FIRST CIGARETTE?WITHIN 5 MIN HOW OFTEN DO YOU SMOKE CIGARETTES?EVERY DAY PATIENT COUNSELED ON THE DANGERS OF TOBACCO USE AND URGED TO QUIT:12/05/2019 SMOKING CESSATION INFORMATION GIVEN12/05/2019 LATEX QUESTIONNAIRE LATEX ALLERGY : HAVE YOU EVER DEVELOPED ANY TYPE OF REACTION AFTER HANDLING LATEX PRODUCTS SUCH RUBBER GLOVES, CONDOMS, DIAPHRAGMS, BALLOONS, SOCKS, OR UNDERWEAR?NO LATEX ALLERGY : HAVE YOU EVER DEVELOPED ANY TYPE OF REACTION DURING OR AFTER DENTAL APPOINTMENT, VAGINAL/RECTAL EXAMINATION, SURGICAL PROCEDURE, OR ANY OTHER EXPOSURE?NO LATEX RISK : HAVE YOU EVER HAD ANY DIFFICULTY BREATHING OR HIVES AFTER EATING OR HANDLING ANY FRUITS, OR VEGETABLES; SUCH KIWI, BANANAS, STONE FRUITS, OR CHESTNUTSNO LATEX RISK : DO YOU HAVE A PREVIOUS PERSONAL HISTORY OF MORE THAN NINE SURGERIES, SPINA BIFIDA, OR REPEATED CATHERIZATIONS? NO LATEX RISK : ARE YOU FREQUENTLY EXPOSED TO LATEX PRODUCTS IN YOUR OCCUPATION?NO DATE ASKED : 08/24/2020 ALCOHOL USE: NO. ALCOHOL SCREENING DID YOU HAVE A DRINK CONTAINING ALCOHOL IN THE PAST YEAR?NO POINTS0 INTERPRETATIONNEGATIVE RECREATIONAL DRUG USE DRUG USE?NO VOODOO [id number] OTHER LANGUAGE LANGUAGES SPOKEN:[place] EDUCATION LEVEL OF EDUCATION:HIGH SCHOOL LEARNING BARRIERS / SPECIAL NEEDS BARRIERS TO LEARNING?NO HEARING IMPAIRED?NO VISION IMPAIRED?NO COGNITIVELY IMPAIRED?NO READINESS TO LEARN?YES LEARNING PREFERENCES?YES :HANDOUTS LEARNING CAPABILITIES PRESENT?YES EMOTIONAL BARRIERS?NO SPECIAL DEVICES?YES :CANE, WALKER NEEDED SYSTEMS ACCOUNTANT NEEDED?NO DOMESTIC VIOLENCE DO YOU FEEL SAFE IN YOUR ENVIRONMENT?YES OCCUPATION: DISABLED. DIET: REGULAR. EXERCISE: WALKS. MARITAL STATUS: SINGLE. OTHERS AT HOME: CHILD. TODAY'S VISITNOTES PATIENT DESCRIBES PAIN :ACHING, HAVE IT ALL THE TIME, THROBBING, SHOOTING FROM 0-10, WHAT LEVEL IS YOUR PAIN TODAY?7 PRECIPITATING FACTORS STANDING ALLEVIATING FACTORS LAYING DOWN - PFS REFERRAL NEEDED?NO CLERGY REFERRAL NEEDED?NO PUBLIC HEALTH REFERRAL NEEDED?NO WAS THE PROVIDER NOTIFIED OF ANY PERTINENT INFO? N/A HAS THE PATIENT BEEN EDUCATED REGARDING HIS/HER PLAN OF CARE?YES HAS THE PATIENT BEEN EDUCATED REGARDING PAIN, THE RISK FOR PAIN, THE IMPORTANCE OF EFFECTIVE PAIN MANAGEMENT, AND THE PAIN ASSESSMENT PROCESS?YES ADVANCE DIRECTIVE ADVANCE DIRECTIVE DISCUSSED WITH PATIENT:YES STATES SHE HAS HCP - ALEXA GILBERTO (SISTER) [phone] REVIEW OF SYSTEMS CONSTITUTIONAL: ANY RECENT FEVER NO . CHILLS NO . WEIGHT CHANGE OF UNKNOWN REASONS NO . GASTROENTEROLOGY: NEW UNEXPLAINABLE CHANGES IN BOWEL CONTROL NO . CONSTIPATION NO . GENITOURINARY: ANY NEW CHANGE IN BLADDER CONTROL? NO . NEUROLOGY: NEW ONSET DIZZINESS OR NEUROLOGICAL CHANGES NOT MENTIONED NO . NEW NUMBNESS OR PAIN PATTERNS NOT MENTIONED AND PERTINENT TO TODAY'S VISIT NO . CARDIOLOGY: NEW CHEST PRESSURE NO . PATIENT DENIES NO . RESPIRATORY: UNEXPLAINABLE COUGH NO . NEW SHORTNESS OF BREATH NO . VITAL SIGNS WT 197.2 LBS, HT 66", BMI 31.83 INDEX, BP 138/90 MM HG, HR 89 /MIN, RR 18 /MIN, TEMP 97 F, OXYGEN SAT % 100, SAFE IN ENV? (Y/N) YES, REVIEWED BY: [facility]. ENZO RN. EXAMINATION GENERAL EXAMINATION: GENERALAWAKE,ALERT ,PLEASANT . PSYCHAFFECT NORMAL . LUNGS:LUNG VARGAS ARE CLEAR TO AUSCULTATION BILATERALLY. GOOD MOVEMENT OF AIR . HEART:S1, S2 IN A REGULAR RATE AND RHYTHM. NO SIGNIFICANT MURMURS, RUBS OR GALLOPS NOTED . ASSESSMENTS CHRONIC PRESCRIPTION OPIATE USE - Z79.891 (PRIMARY) INTERVERTEBRAL DISC DISORDER WITH RADICULOPATHY OF LUMBAR REGION - M51.16 TREATMENT CHRONIC PRESCRIPTION OPIATE USE LAB: URINE TEST GROUP GEOFF FARRIS 08/24/2020 3:48:04 PM > LAST DOSE: GABAPENTIN 08/24/2020 @12PM, PERCOCET 08/24/2020 @12PM, TRAMADOL 08/23/2020 @9PM NOTES: ISTOP REGISTRY REVIEWED AND DEMONSTRATES COMPLLIANCE. RECENT URINE TOXICOLOGY REVIEWED. NO UNAUTHORIZED MEDICATIONS. NO ILLICIT SUBSTANCES AND PRESCRIBED MEDICATIONS WERE PRESENT. PATIENT FORGOT TO BRING IN MEDICATION.ADVISED TO BRING IN ALL MEDICATIONS PRESCRIBED AT PAIN CLINIC TO EVERY VISIT . , RISKS OF NARCOTIC/OPIOD MEDICATIONS INCLUDES BUT IS NOT LIMITED TO RISK OF DEPENDANCE/DEVELOPMENT OF ADDICTION, MOOD DISTURBANCE AND DEPRESSION, OSTEOPOROSIS, HORMONAL AND LABIDAL CHANGES, RESPIRATORY DEPRESSION AND . PATIENT IS ADVISED NOT TO DRIVE OR DRINK ALCOHOL WHILE ON THESE MEDICATIONS. DISPOSITION & COMMUNICATION FOLLOW UP 6 WEEKS (REASON: PILL COUNT/ID/REVIEW [id number]) ELECTRONICALLY SIGNED BY ANDREW HARRIS ON 08/27/2020 AT 04:05 PM EDT DISCLAIMER : THIS IS A VISIT SUMMARY EXTRACTED FROM THE [employer] CHART. IT IS NOT A COPY OF THE [employer] PROGRESS NOTE. LASHAY
== END ==
LOC: M PAIN 14:45
PROVIDERS: ATTEND Nurse Practitioner Family
DX: M51.16 Intervertebral disc disorders with radiculopathy, lumbar region (principal); G89.29 Other chronic pain; M79.7 Fibromyalgia; F17.210 Nicotine dependence, cigarettes, uncomplicated; Z86.59 Personal history of other mental and behavioral disorders; Z88.6 Allergy status to analgesic agent; Z79.891 Long term (current) use of opiate analgesic; Z79.899 Other long term (current) drug therapy

== ENCOUNTER → 2021-10-03 | Outpatient (REF) | LOC: M LAB 11:18 ==